=== PATIENT | female | born 1950 | race Caucasian/White ===

== ENCOUNTER 2022-03-29 15:00 | Outpatient (CLI) | payer MEDICARE, SELFPAY ==
--- NOTE | ~2022-03-29 | XR_ITS ---
EXAM: XR abdomen/kub 1V DATE: 03/29/2022 15:29 HISTORY: CALCIUM KIDNEY STONE, FOLLOW UP FOR PRE OP . COMPARISON: CT abdomen pelvis, same date. FINDINGS: Clear lung bases. Cholecystectomy clips. Normal bowel gas pattern. No organomegaly. 4 mm l eft midpole calcification. Pelvic phleboliths Regional bones and soft tissues normal for age. IMPRESSION: Left nephrolithiasis. Reviewed, dictated and finalized at location K. L AIRCREWMAN IMPRESSION: Left nephrolithiasis.
--- NOTE | ~2022-03-29 | CT_ITS ---
EXAMINATION: CT abdomen pelvis wo con DATE: 03/29/2022 15:21 INDICATION: CALCIUM KIDNEY STONE TECHNIQUE: Computed tomography (CT) of the abdomen and pelvis was performed without intravenous contr ast. Automated exposure control and iterative reconstruction technique were employed. The dose-length product was 237.79 mGy-cm. COMPARISON: None. FINDINGS: Lower thorax: Right basilar scar/atelectasis. Liver: Normal. Biliary/Gallbladder: Gallbladder is absent. No bile duct dilation. Pancreas: No mass or duct dilation. Spleen: Normal. Adrenals:No mass. Kidneys: 3 mm left midpole nonobstructing calculus. Bilateral perinephric stranding. 2.5 cm indetermi mateo right upper pole renal mass. Additional bilateral hypodensities that are too small to characteri ze but frequently are attributed to simple cysts GI tract: No small or large bowel dilation. Normal appendix. Scattered diverticuli. Mild wall edema a nd inflammatory change involving a diverticulum in the left anterior and lower pelvis. Mesentery/Peritoneum: No ascites, mass, or free air. Retroperitoneum: No mass. Pelvis: Absent uterus. Soft Tissues: Soft tissues and body wall unremarkable. Bones: No acute osseous finding. IMPRESSION: Possible early/mild mid sigmoid diverticulitis. Indeterminate right renal mass, recommend nonemergent but timely outpatient MRI or CT of the abdomen and pelvis with and without contrast for further eval uation. No CT evidence of obstructive uropathy. Reviewed, dictated and finalized at location K. CH OFFICE MANAGER IMPRESSION: Possible early/mild mid sigmoid diverticulitis. Indeterminate right renal mass, recommend nonemergent but timely outpatient MRI or CT of the abdomen and pelvi s with and without contrast for further evaluation. No CT evidence of obstructi ve uropathy.
== END 2022-03-29 15:01 | disposition home or self-care (01) ==
LOC: ANHIMG 15:02
PROVIDERS: Visit Provider Urology
DX: N20.0 Calculus of kidney (principal)
CPT/HCPCS: 74018; 74176

== ENCOUNTER 2022-12-27 13:09 | Outpatient (CLI) | payer MEDICARE, SELFPAY ==
--- NOTE | ~2022-12-27 | XR_ITS ---
EXAMINATION: XR abdomen/kub 1V DATE: 12/27/2022 13:33 INDICATION: Left kidney stone. TECHNIQUE: A supine view of the abdomen on 2 radiographs was obtained. COMPARISON: CT abdomen and pelvis 03/29/2022, abdomen radiographs 03/30/2022 FINDINGS: There is a 4 mm stone in left kidney. There are phleboliths in the pelvis. There are no dil ated loops of bowel. Surgical clips in the right upper quadrant are likely from cholecystectomy. IMPRESSION: 1. 4 mm left kidney stone. Reviewed, dictated and finalized at location A. IMPRESSION: 1. 4 mm left kidney stone.
== END 2022-12-27 13:10 | disposition home or self-care (01) ==
LOC: ANHIMG 13:19
PROVIDERS: Visit Provider Urology
DX: N20.0 Calculus of kidney (principal)
CPT/HCPCS: 74018

== ENCOUNTER 2023-01-16 13:40 | Outpatient (CLI) | payer MEDICARE, SELFPAY ==
--- NOTE | ~2023-01-16 | CT_ITS ---
CT of the Abdomen and Pelvis: Indication: Right renal cyst Technique: 2.5 mm axial scans were obtained through the abdomen and pelvis prior to and following in travenous administration of 100 cc of Omnipaque 350. Dose reduction technique was used on this scan b y utilizing automated exposure control and iterative reconstruction technique. The dose-length produc t (DLP) was 788.24 mGy-cm. COMPARISON: 03/29/2022 Findings: Scans through the lung bases demonstrate discoid right basilar atelectatic change. The liver, spleen, pancreas, and adrenal glands are within normal limits. Cholecystectomy clips are p resent. Simple right renal cysts are present. 4 mm nonobstructing left renal stone present.. No evide nce of aortic aneurysm. There is a 1.5 x 1.1 cm left periaortic lymph node (series 6 image 93), mildl y increased in size from prior exam.. No bowel obstruction or bowel wall thickening. There is no evidence to suggest acute appendicitis. Images through the pelvis were performed. Urinary bladder unremarkable. No pelvic mass evident. Patie nt is status post hysterectomy. No ascites. Impression: Simple right renal cysts. 4 mm nonobstructing left renal stone. Single mildly enlarged left periaortic lymph node, as detailed above. This is of uncertain clinical s ignificance/etiology. This node is probably minimally increased from prior exam. Consider additional follow-up exam in 6 months. Reviewed, dictated and finalized at [facility]. Impression: Simple right renal cysts. 4 mm nonobstructing left renal stone. Single mildly enlarged left periaortic lymph node, as detailed above. This is o f uncertain clinical significance/etiology. This node is probably minimally inc reased from prior exam. Consider additional follow-up exam in 6 months.
[2023-01-16 15:16] LABS: Estimated Glomerular Filt Rate > 60
== END 2023-01-16 13:41 | disposition home or self-care (01) ==
PROVIDERS: PCP Family Medicine; Visit Provider Urology
DX: N28.1 Cyst of kidney, acquired (principal); N20.0 Calculus of kidney
CPT/HCPCS: 74178; Q9967

== ENCOUNTER 2023-02-23 10:32 | Outpatient (CLI) | payer MEDICARE, SELFPAY ==
--- NOTE | 2023-02-23 10:52 | ECG_ITS ---
Measurements Intervals [place] Rate: 86 P: 37 WV: 173 QRS: -16 QRSD: 84 T: 34 QT: 356 QTc: 426 Interpretive Statements SINUS RHYTHM LOW QRS VOLTAGE IN PRECORDIAL LEADS [QRS DEFLECTION < 1.0 mV IN CHEST LEADS] NO PREVIOUS ECG AVAILABLE FOR COMPARISON Electronically Signed On 02-23-2023 14:30:02 CDT by Luis Preston M.D.
[2023-02-23 11:51] LABS: Prothrombin Time 13.2 Seconds (11.1-14.7)
[2023-02-23 11:52] LABS: Partial Thromboplastin Time 32.4 SECONDS (22.3-36.8)
== END 2023-02-23 10:33 | disposition home or self-care (01) ==
LOC: ANHSURGERY 10:35
PROVIDERS: PCP Family Medicine; Visit Provider Urology
DX: Z01.812 Encounter for preprocedural laboratory examination (principal); Z01.810 Encounter for preprocedural cardiovascular examination; N20.0 Calculus of kidney; I10 Essential (primary) hypertension
CPT/HCPCS: 36415; 85610; 85730; 87086; 93005

== ENCOUNTER 2023-03-02 02:50 | Day surgery (SDC) | payer MEDICARE, SELFPAY ==
[2023-02-20 17:59] VITALS: BMI 26.4
--- NOTE | 2023-02-20 18:01 | PC.NURSE ---
Report to the Outpatient Waiting Room, entrance under the green pavilion located off [facility], at time _0600_ on date _[id number]_. Planned Procedure Time: _0730_. Time changes happen often and if your time is changed the preop area will call you the afternoon before. - You and your visitor will be asked to self-screen and do not enter if you have any COVID symptoms. - A mask is optional within the hospital at this time. Patients may have clear liquids (water, carbonated beverages, clear teas, apple juice) until 3 hours prior to surgery with a maximum of 20 ounces. - No food from midnight until time of surgery Take the following medications with a SIP of water the morning of surgery: __Levothyroxine DO NOT STOP ANY OF YOUR OTHER PRESCRIPTION MEDICATIONS PRIOR TO SURGERY ?EXCEPT THE FOLLOWING Medications to discontinue per physician Vitamin D3 and Probiotic Date to take last senb___[id number] Please no make-up, nail azerbaijani, hairspray, perfume, deodorant, or body powder the day of surgery. No jewelry (including any body piercings) or valuables the day of surgery, leave them at home. Please take a shower or bath the night before, or the morning of, surgery with an antibacterial soap. Wear comfortable, loose fitting clothing. - Jewelry must be removed prior to entering the operating room. Rings and piercings that are not removed may be cut off. - The hospital will not accept responsibility for valuables. - Please leave all valuables, including medications, at home the day of surgery. If you are going home after surgery, a licensed team cdl driver must drive you home. - NO public transportation without another adult if you receive anesthesia. - We recommend that an adult stay with you for 24 hours following discharge. - We also recommend that you do not drive, make important decision, drink alcoholic beverages, or take any drugs that were not prescribed by your health care provider for at least 24 hours after your discharge time. Follow any additional instructions given to you from your surgeon. If you or anyone in your household have experienced Covid symptoms in the past week, please notify your surgeon or the nurse liaison at the phone number below for possible testing. Telephone instructions given to _Patient___and asked if any additional questions and then verbalized understanding. Patient advised to call surgeon office or pre surgery nurse liaison [phone] if any additional questions.
--- NOTE | 2023-02-23 07:27 | P.HP_ITS ---
History of Present Illness History of Present Illness Consent: Risks, benefits, and alternatives have been discussed and questions answered. Patient agrees to proceed with procedure. Chief complaint: left renal stone Narrative: Lesli Su is a 72 year old female under have urolithiasis in the past had a recent renal ultrasound suggested a 9 mm left midpole calculus. That was confirmed by CT scan. Additionally she had an indeterminate mass in her left k idney which, by ultrasound, as suggestive of a benign cyst. After discussion of options she has elected for left ESWL. She is aware of the risk including, but not limited to, need for additional procedures, hematuria and perinephric hematoma Review of Systems Review of Systems: All systems reviewed & are unremarkable except as noted in HPI and below PMFSH Social History Social History Smoking status: Never smoker Alcohol intake: current Living arrangements: with family Spiritual care concerns: No Meds Home Medications and Allergies Home Medications Medication Instructions Recorded Confirmed Type Lactobacillus 40-Bifidobact 1 cap PO DAILY 02/20/23 02/20/23 History 3-S.thermophilus 100 billion cell capsule (Probiotic) amitriptyline 50 mg tablet 50 mg PO HS 02/20/23 02/20/23 History cholecalciferol (vitamin D3) 125 125 mcg PO DAILY 02/20/23 02/20/23 History mcg (5,000 unit) tablet (Vitamin D3) letrozole 2.5 mg tablet 2.5 mg PO HS 02/20/23 02/20/23 History levothyroxine 75 mcg tablet 75 mcg PO DAILY 02/20/23 02/20/23 History lovastatin 20 mg tablet 20 mg PO HS 02/20/23 02/20/23 History metoprolol succinate 25 mg 25 mg PO HS 02/20/23 02/20/23 History tablet,extended release 24 hr Allergies Allergy/AdvReac Type Severity Reaction Status Date / Time hydrocodone Allergy Severe Hives Verified 02/20/23 17:49 Exam Const: General: no acute distress Resp: Effort & Inspection: normal respiratory effort GI: Inspection: non-distended GI Palp: No abdominal tenderness and No Guarding due to palpation present (GI) Auscultation: normal bowel sounds Assessment and Plan Assessment and plan (1) Left renal stone: Code(s): N20.0 - Calculus of kidney Status: Acute Assessment and Plan: * Left ESWL
[2023-03-02] VITALS (8 sets, daily range): BP systolic 124–134; BP diastolic 63–77; PULSE 72–88; RESP 12–18; TEMP 36.3–36.4; O2SAT 98–100; BMI 27.1
--- NOTE | ~2023-03-02 | XR_ITS ---
Supine and upright views of the abdomen Clinical history: Lithotripsy COMPARISON: 12/27/2022 Findings: Bowel gas pattern is nonspecific. No evidence for obstruction or free air. Stable 4 mm left renal stone noted. Osseous structures are intact. Impression: Stable 4 mm left renal stone. Reviewed, dictated and finalized at [facility]. Impression: Stable 4 mm left renal stone.
--- NOTE | 2023-03-02 06:33 | WPDANESEPPF ---
Anes - Initial Pre Proc Eval Procedure: Operation Date: 03/02/23 07:30 Proposed Procedures p Left Renal Extracorporeal Shock Wave Lithotripsy - Rick Randle MD Date/Time: 03/02/23 06:33 Surgeon: Rick Randle MD Pre Op Diagnosis: left renal stone Patient Data Age: 72 Gender: F Height: 1.55 m Weight: 63.6 kg Allergies Allergy/AdvReac Type Severity Reaction Status Date / Time hydrocodone Allergy Severe Hives Verified 02/20/23 17:49 Home Medications Medication Instructions Recorded Confirmed Type Lactobacillus 40-Bifidobact 1 cap PO DAILY 02/20/23 02/20/23 History 3-S.thermophilus 100 billion cell capsule (Probiotic) amitriptyline 50 mg tablet 50 mg PO HS 02/20/23 02/20/23 History cholecalciferol (vitamin D3) 125 125 mcg PO DAILY 02/20/23 02/20/23 History mcg (5,000 unit) tablet (Vitamin D3) letrozole 2.5 mg tablet 2.5 mg PO HS 02/20/23 02/20/23 History levothyroxine 75 mcg tablet 75 mcg PO DAILY 02/20/23 02/20/23 History lovastatin 20 mg tablet 20 mg PO HS 02/20/23 02/20/23 History metoprolol succinate 25 mg 25 mg PO HS 02/20/23 02/20/23 History tablet,extended release 24 hr Patient hx anesthesia problems: none Family hx anesthesia problems: none Results Review: All pre-operative results and documents have been reviewed as part of the pre-operative evaluation. [facility] Past Medical History Medical History (Updated 03/02/23 @ 06:34 by Erik Blanco MD) Breast cancer HTN (hypertension) Hyperlipidemia Hypothyroidism Surgical History Surgical History (Updated 03/02/23 @ 06:34 by Erik Blanco MD) H/O: hysterectomy History of cholecystectomy Hx of tonsillectomy Social History Social History Smoking status: Never smoker Alcohol intake: current Living arrangements: with family Spiritual care concerns: No Anes - Eval Final PreProcedure Day of Procedure 03/02/23 06:33 Patient weight: overweight Heart: regular rate and rhythm Lungs: clear to auscultation Airway: Mallampati scale class II Neurological: alert and oriented Last oral intake: >/= 8 hours ASA classification: III Emergent: no Anesthetic plan: proceed Anesthesia type and monitoring: general LMA and standard monitoring Results Review: All pre-operative results and documents have been reviewed as part of the pre-operative evaluation. Informed Consent: The patient's anesthetic plan and its attendant risks and benefits were discussed with the patient/family/POA. Questions were solicited and answers provided to the satisfaction of the patient/family/POA.
--- NOTE | 2023-03-02 06:56 | WPDHPUPDATE1 ---
History and Physical Update Update Date/Time: 03/02/23 06:56 History and Physical has been reviewed, including an updated exam of the patient. There are NO changes in the patient's condition. Risks, benefits, and alternatives have been discussed and questions answered. Patient agrees to proceed with procedure.
[2023-03-02] MEDS: LACTATED RINGERS 1,000 ML 30 ML IV CONT (07:00)
[2023-03-02] MEDS: ceFAZolin 2 GM/D5W 50 ML 2 GM/50 ML BAG IVPB (07:22)
--- NOTE | 2023-03-02 07:51 | W.PM.PROC2 ---
Procedure Note - Detailed Date of Procedure 03/02/23 Pre-op Diagnosis Left renal stone Post-op Diagnosis Same Procedure Performed Left ESWL Surgeon Rick Randle MD Anesthesia General Findings 4mm calcified left renal stone Description of Procedure The patient was brought to the operative suite where she was placed in the supine position on the Dornier lithotripsy table. The focal point of the lithotripter was placed at a 4mm left renal calculus. A total of 2500 shocks were delivered at a power setting of 4. There appeared to be good fragmentation of the stone. The patient tolerated the procedure well and was taken to the recovery room in good condition. Drains No Packing No Pathology None sent Complications No immediate complications Condition Stable Disposition PACU
[2023-03-02] MEDS: KETOROLAC 15 MG/ML VIAL (*BKC) IV PUSH (09:20)
== END 2023-03-02 09:48 | disposition home or self-care (01) ==
PROVIDERS: PCP Family Medicine; Visit Provider Urology
PROC: (CPT 50590; principal; 2023-03-02 07:30)
DX: N20.0 Calculus of kidney (principal); I10 Essential (primary) hypertension; E78.5 Hyperlipidemia, unspecified; E03.9 Hypothyroidism, unspecified; Z85.3 Personal history of malignant neoplasm of breast
CPT/HCPCS: 50590; 74018; J0690; J1100; J1885; J2405; J2704; J7120

== ENCOUNTER 2023-03-09 15:40 | Outpatient (CLI) | payer MEDICARE, SELFPAY ==
--- NOTE | ~2023-03-09 | XR_ITS ---
EXAMINATION: XR abdomen/kub 1V INDICATION: Calculus of the kidney TECHNIQUE: Supine views of the abdomen were obtained on 2 radiographs. COMPARISON: 03/02/2023 FINDINGS: There is a 4 mm stone of the left kidney. No additional urolithiasis is identified. Phlebol iths are noted in the pelvis. The bowel gas pattern is normal. IMPRESSION: 1. Stable left nephrolithiasis. Reviewed, dictated and finalized at location F.
== END 2023-03-09 15:41 | disposition home or self-care (01) ==
PROVIDERS: PCP Family Medicine; Visit Provider Urology
DX: N20.0 Calculus of kidney (principal)
CPT/HCPCS: 74018

== ENCOUNTER 2023-12-25 09:42 | Outpatient (CLI) | payer MEDICARE, SELFPAY ==
--- NOTE | ~2023-12-25 | XR_ITS ---
XR abdomen/kub 1V Ordering provider: Rick Randle MD History: . CALCIUM KIDNEY STONES . Comparison: March 09, 2023 FINDINGS: BOWEL: Nonobstructive bowel gas pattern. ORGANOMEGALY: None. SIGNIFICANT PATHOLOGIC CALCIFICATIONS: Tiny stone in the left kidney area. OTHER: No free air is seen under the diaphragm. IMPRESSION: NO ACUTE ABDOMINAL FINDINGS. Stone in the left kidney unchanged from previous examination Reviewed, dictated and finalized at location A.
== END 2023-12-25 09:43 | disposition home or self-care (01) ==
LOC: ANHIMG 09:43
PROVIDERS: PCP Family Medicine; Visit Provider Urology
DX: N20.0 Calculus of kidney (principal)
CPT/HCPCS: 74018

== ENCOUNTER 2025-01-02 09:44 | Outpatient (CLI) | payer MEDICARE, SELFPAY ==
--- OUTSIDE RECORDS SUMMARY | 2025-01-02 09:49 | XMS_ITS | Encounter Summary ---
Author Organization [facility] Address [address] [place] [address] Phone Care Team Providers Care Superintendent Name Role Phone Dami Santamaria MD Unavailable [phone] Erik Pathak MD Unavailable [phone] Christiano Gregory MD Unavailable Ana Theodore MD Primary Care Provider Kay Cabrales Primary Care Provider + Eyad Regalado MD Unavailable Reason for Visit * Reason Comments Medication Refill Encounter Details Date Type Department Care Team (Late st Contact Info) Description 10/04/2022 Refill [facility] Medical Oncology [address] [place] [address] Dami Santamaria MD [address] [place], [place] [id number] Medication Refill Social History Tobacco Use Types Packs/Day Years Used Date Smoking Tobacco: Never Smokeless Tobacco: Never Alcohol Use Standard Drinks/Week Comments Yes 0 (1 standard drink = 0.6 oz pur e alcohol) Occasionally. PHQ-2 Answer Date Recorded Total Score - Questions 1-9 0 04/21 Education Answer Date Recorded What is the highest level of school you have completed or the highest degree you have received? 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 No / Unsure 09/28/2022 2:16 PM CDT documented as of this encounter Miscellaneous Notes * Telephone Encounter - Alejandrina Carlisle RN - 10/04/2022 9:19 AM CDT Refilled Letrozole per MD f/u note. Next f/u in 4 months documented in this encounter Plan of Treatment Upcoming Encounters Date Type Department Care Team (Late st Contact Info) Description 02/19/2025 9:20 AM CDT [facility] [address] [place] [phone] Dami Santamaria MD [address] [place] [address] Discharge Disposition: Discharged to home or Selfcare 02/19/2025 9:30 AM CDT Clinical Support [facility] [address] [place] [address] Dami Santamaria MD [address] [place] [address] Discharge Disposition: Discharged to home or Selfcare 07/02/2025 2:30 PM TEXTILE COLORIST DYER Office Visit [facility] [address] [place] [address] Kay Cabrales, PAC [address] [place] [address] documented as of this encounter Visit Diagnoses Diagnosis Malignant neoplasm of lower-outer quadrant of right female breast (HCC) Malignant neoplasm of lower-outer quadrant of female breast documented in this encounter Additional Health Concerns Assessment Noted Time PHQ-9 Depression Total Score: 0 05/10/20 1:00 PM TEXTILE COLORIST DYER documented as of this encounter Care Teams Superintendent Relationship Specialty Start Date End Date Ana Theodore MD [address] [phone] PCP - General Family Medicine 05/10/22 08/05/23 Kay Cabrales, VALENTIN [address] [place] [address] PCP - General Physician Flux Plant Operator 08/06/23 Dami Santamaria MD Consulting Physician Hematology 08/21/16 Erik Pathak MD Consulting Physician Radiation Oncology 09/22/16 Christiano Gregory MD [address] [phone] Consulting Physician Endocrinology 01/10/22 Eyad Regalado MD [address] [address] Consulting Physician Colon and Rectal Surgery 04/02/24 documented as of this encounter
--- OUTSIDE RECORDS SUMMARY | 2025-01-02 09:49 | XMS_ITS | Encounter Summary ---
Author Organization [facility] Address [address] [place] [address] Phone Care Team Providers Care Order Dispatcher Name Role Phone Kaitlynn Christianson MD Primary Care Provider [phone] Dami Santamaria MD Unavailable [phone] Erik Pathak MD Unavailable [phone] Christiano Gregory MD Unavailable Ana Theodore MD Primary Care Provider Kay Cabrales Primary Care Provider + Eyad Regalado MD Unavailable Reason for Visit * Reason Comments Medication Refill Encounter Details Date Type Department Care Team (Late st Contact Info) Description 01/26/2021 Refill [facility] [address] [place] [address] Kaitlynn Christianson MD [address] [place] [address] Medication Refill Social History Tobacco Use Types Packs/Day Years Used Date Smoking Tobacco: Never Smokeless Tobacco: Never Alcohol Use Standard Drinks/Week Comments Yes 0 (1 standard drink = 0.6 oz pur e alcohol) Occasionally. 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 Requested Prescriptions Pending Prescriptions Disp Refills Euthyrox 75 MCG Tablet [Pharmacy Med Name: Euthyrox 75 MCG Oral Tablet] 90 Tablet 0 Sig: Take 1 tablet by mouth once daily Thyroid Hormones Protocol Passed - 01/27/2021 9:02 AM Passed - Visit with relevant provider in past 12 months or upcoming 90 days Recent Visits Date Type Provider Dept 12/17/20 Office Visit Kaitlynn Christianson MD [facility] 06/17/20 Telemedicine Kaitlynn Christianson MD [facility] Showing recent visits within past 365 days and meeting all other requirements Future Appointments No visits were found meeting these conditions. Showing future appointments within next 90 days and meeting all other requirements Passed - Normal TSH in past 12 months TSH Date Value Ref Range Status 12/10/2020 1.520 0.270 - 4.200 mIU/L Final metoprolol Succinate (TOPROL-XL) 25 MG TABLET SR 24 HR [Pharmacy Med Name: Metoprolol Succinate ER 25 MG Oral Tablet Extended Release 24 Hour] 90 Tablet 0 Sig: Take 1 tablet by mouth once daily Beta-Blockers Protocol Passed - 01/27/2021 9:02 AM Passed - BP on record in the past year Clinician-entered: BP Readings from Last 3 Encounters: 12/17/20 128/80 12/16/20 139/69 12/16/20 139/69 Patient-entered: No data recorded Passed - Visit with relevant provider in past 12 months or upcoming 90 days Recent Visits Date Type Provider Dept 12/17/20 Office Visit Kaitlynn Christianson MD [facility] 06/17/20 Telemedicine Kaitlynn Christianson MD [facility] Showing recent visits within past 365 days and meeting all other requirements Future Appointments No visits were found meeting these conditions. Showing future appointments within next 90 days and meeting all other requirements lovastatin (MEVACOR) 20 MG Tablet [Pharmacy Med Name: Lovastatin 20 MG Oral Tablet] 90 Tablet 0 Sig: TAKE 1 TABLET BY MOUTH ONCE DAILY IN THE EVENING Hmg CoA Reductase Inhibitors Protocol Passed - 01/27/2021 9:02 AM Passed - Visit with relevant provider in past 12 months or upcoming 90 days Recent Visits Date Type Provider Dept 12/17/20 Office Visit Kaitlynn Christianson MD [facility] 06/17/20 Telemedicine Kaitlynn Christianson MD [facility] Showing recent visits within past 365 days and meeting all other requirements Future Appointments No visits were found meeting these conditions. Showing future appointments within next 90 days and meeting all other requirements Passed - Lipid panel in past 12 months LDL Date Value Ref Range Status 12/10/2020 85 5 - 130 mg/dL Final HDL CHOLESTEROL Date Value Ref Range Status 12/10/2020 38.6 (L) >40 mg/dL Final CHOLESTEROL Date Value Ref Range Status 12/10/2020 157 <=200 mg/dL Final TRIGLYCERIDES Date Value Ref Range Status 12/10/2020 167 (H) <150 mg/dL Final VLDL Date Value Ref Range Status 12/10/2020 33 5 - 55 mg/dL Final CHOL/HDL RATIO Date Value Ref Range Status 12/10/2020 4.1 0.0 - 4.4 Final NON-HDL CHOLESTEROL Date Value Ref Range Status 12/10/2020 118.4 <130 mg/dL Final amitriptyline (ELAVIL) 50 MG Tablet [Pharmacy Med Name: Amitriptyline HCl 50 MG Oral Tablet] 90 Tablet 0 Sig: TAKE 1 TABLET BY MOUTH ONCE DAILY AT NIGHT [facility] Not Delegated - Psychiatry: Antidepressants - Heterocyclics (TCAs) Failed - 01/27/2021 9:02 AM Failed - This refill cannot be delegated Passed - Valid encounter within last 12 months Past Office Visits Recent Outpatient Visits 1 month ago Essential hypertension [facility] Kaitlynn Christianson MD 7 months ago Essential hypertension [facility] Kaitlynn Christianson MD 1 year ago Essential [facility] Kaitlynn Everett MD 1 year ago Essential hypertension [facility] - Kaitlynn Everett MD 2 years ago Essential hypertension [facility] [place] Kaitlynn Christianson MD Upcoming Appointments Future Appointments In 4 months [facility] In 4 months Dami Santamaria MD [facility], [facility] In 4 months [facility] CC INFUSION CHR1 [facility], [facility] In 4 months Kaitlynn Christianson MD [facility] In 10 months Erik Pathak MD [facility], [facility] TOBACCO PACKER - Recent and Past Visits Recent Visits Date Type Provider Dept 12/17/20 Office Visit Kaitlynn Christianson MD [facility] 06/17/20 Telemedicine Kaitlynn Christianson MD [facility] 11/14/19 Telemedicine Kaitlynn Christianson MD [facility] Showing recent visits within past 460 days with a meds authorizing provider and meeting all other requirements Future Appointments No visits were found meeting these conditions. Showing future appointments within next 90 days with a meds authorizing provider and meeting all other requirements Passed - Last BP in normal range BP Readings from Last 1 Encounters: 12/17/20 128/80 documented in this encounter Plan of Treatment Upcoming Encounters Date Type Department Care Team (Late st Contact Info) Description 02/19/2025 9:20 AM CDT Office Visit [facility] [address] [place] [address] Dami Santamaria MD [address] [place] [address] Discharge Disposition: Discharged to home or Selfcare 02/19/2025 9:30 AM CDT Clinical Support [facility] [address] [place] [address] Dami Santamaria MD [address] [place] [address] Discharge Disposition: Discharged to home or Selfcare 07/02/2025 2:30 PM CHANGE OVER Office Visit [facility] Medical Group - Family [facility] [address] [place] [address] Kay Cabrales, PAC [address] [place] [address] documented as of this encounter Visit Diagnoses Diagnosis Acquired hypothyroidism Unspecified hypothyroidism Essential hypertension Unspecified essential hypertension Fibromyalgia Mylagia and myositis, unspecified documented in this encounter Additional Health Concerns Assessment Noted Time PHQ-9 Depression Total Score: 0 04/03/20 19 10:00 AM CHANGE OVER documented as of this encounter Care Teams Order Dispatcher Relationship Specialty Start Date End Date Kaitlynn Christianson MD PCP - General Family Medicine 03/07/15 05/09/22 Ana Theodore MD [address] [address] PCP - General Family Medicine 05/10/22 08/05/23 Kay Cabrales, PAC [address] [place] [address] PCP - General Physician Clerical Aide 08/06/23 Dami Santamaria MD Consulting Physician Hematology 08/21/16 Erik Pathak MD Consulting Physician Radiation Oncology 09/22/16 Christiano Gregory MD [address] [address] Consulting Physician Endocrinology 01/10/22 Eyad Regalado MD [address] [address] Consulting Physician Colon and Rectal Surgery 04/02/24 documented as of this encounter
--- OUTSIDE RECORDS SUMMARY | 2025-01-02 09:49 | XMS_ITS | Encounter Summary ---
Author Organization [facility] Address [address] [place] [address] Phone Care Team Providers Care Livestock Nutritionist Name Role Phone Kaitlynn Christianson MD Primary Care Provider [phone] Dami Santamaria MD Unavailable [phone] Erik Pathak MD Unavailable [phone] Christiano Gregory MD Unavailable Ana Theodore MD Primary Care Provider [phone] Kay Cabrales Primary Care Provider + Eyad Regalado MD Unavailable Reason for Visit * Reason Comments Medication Refill Encounter Details Date Type Department Care Team (Late st Contact Info) Description 04/11/2022 Refill [facility] - [facility] - [place] [address] [place] [address] Kaitlynn Christianson MD [address] [place] [address] Medication Refill Social History Tobacco [...] 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 Requested Prescriptions Pending Prescriptions Disp Refills levothyroxine (SYNTHROID) 75 MCG Tablet [Pharmacy Med Name: Levothyroxine Sodium 75 MCG Oral Tablet] 90 Tablet 0 Sig: Take 1 Tablet by mouth daily. Thyroid Hormones Protocol Passed - 04/11/2022 3:08 AM Passed - Visit with relevant provider in past 12 months or upcoming 90 days Recent Visits Date Type Provider Dept 12/26/21 Office Visit Kaitlynn Christianson MD [facility] 06/28/21 Office Visit Kaitlynn Christianson MD [facility] Showing recent visits within past 365 days and meeting all other requirements Future Appointments Date Type Provider Dept 05/10/22 Appointment Ana Theodore MD [facility] 06/21/22 Appointment Lab, [facility] 06/29/22 Appointment Kaitlynn Christianson MD [facility] Showing future appointments within next 90 days and meeting all other requirements Passed - Normal TSH in past 12 months TSH Date Value Ref Range Status 12/16/2021 2.400 0.270 - 4.200 mIU/L Final metoprolol Succinate (TOPROL-XL) 25 MG TABLET SR 24 HR [Pharmacy Med Name: Metoprolol Succinate ER 25 MG Oral Tablet Extended Release 24 Hour] 90 Tablet 0 Sig: Take 1 Tablet by mouth daily. Beta-Blockers Protocol Passed - 04/11/2022 3:08 AM Passed - BP on record in the past year Clinician-entered: BP Readings from Last 3 Encounters: 03/09/22 102/64 01/18/22 120/78 01/03/22 142/83 Patient-entered: No data recorded Passed - Visit with relevant provider in past 12 months or upcoming 90 days Recent Visits Date Type Provider Dept 12/26/21 Office Visit Kaitlynn Christianson MD [facility] [employer] [facility] 06/28/21 Office Visit Kaitlynn Christianson MD [facility] [employer] [facility] Showing recent visits within past 365 days and meeting all other requirements Future Appointments Date Type Provider Dept 05/10/22 Appointment Ana Theodore MD [facility] 06/21/22 [facility]oint[facility] [employer] [facility] 06/29/22 Appointment Kaitlynn Christianson MD [facility] [employer] [facility] Showing future appointments within next 90 days and meeting all other requirements amitriptyline (ELAVIL) 50 MG Tablet [Pharmacy Med Name: Amitriptyline HCl 50 MG Oral Tablet] 90 Tablet 0 Sig: Take 1 Tablet by mouth nightly. Not Delegated - Tricyclic Agents Protocol Failed - 04/11/2022 3:08 AM Failed - This refill cannot be delegated Passed - Visit with relevant provider in past 12 months or upcoming 90 days Recent Visits Date Type Provider Dept 12/26/21 Office Visit Kaitlynn Christianson MD [facility] [employer] [facility] 06/28/21 Office Visit Kaitlynn Christianson MD [facility] [employer] [facility] Showing recent visits within past 365 days and meeting all other requirements Future Appointments Date Type Provider Dept 05/10/22 Appointment Ana Theodore MD [facility] 06/21/22 Appointment Lab, [facility] [employer] 06/29/22 Appointment Kaitlynn Christianson MD [facility] [employer] [facility] Showing future appointments within next 90 days and meeting all other requirements lovastatin (MEVACOR) 20 MG Tablet [Pharmacy Med Name: Lovastatin 20 MG Oral Tablet] 90 Tablet 0 Sig: Take 1 Tablet by mouth every evening. Hmg CoA Reductase Inhibitors Protocol Passed - 04/11/2022 3:08 AM Passed - Visit with relevant provider in past 12 months or upcoming 90 days Recent Visits Date Type Provider Dept 12/26/21 Office Visit Kaitlynn Christianson MD [facility] 06/28/21 Office Visit Kaitlynn Christianson MD [facility] Showing recent visits within past 365 days and meeting all other requirements Future Appointments Date Type Provider Dept 05/10/22 Appointment Ana Theodore MD [facility] 06/21/22 Appointment Andi Radha [facility] [address] 06/29/22 Appointment Kaitlynn Christianson MD [facility] Showing future appointments within next 90 days and meeting all other requirements Passed - Lipid panel in past 12 months LDL Date Value Ref Range Status 12/16/2021 90 5 - 130 mg/dL Final HDL CHOLESTEROL Date Value Ref Range Status 12/16/2021 37.3 (L) >40 mg/dL Final CHOLESTEROL Date Value Ref Range Status 12/16/2021 159 <=200 mg/dL Final TRIGLYCERIDES Date Value Ref Range Status 12/16/2021 157 (H) <150 mg/dL Final VLDL Date Value Ref Range Status 12/16/2021 31 5 - 55 mg/dL Final CHOL/HDL RATIO Date Value Ref Range Status 12/16/2021 4.3 0.0 - 4.4 Final NON-HDL CHOLESTEROL Date Value Ref Range Status 12/16/2021 121.7 <130 mg/dL Final ULA CHECKER documented in this encounter Plan of Treatment Upcoming Encounters Date Type Department Care Team (Late st Contact Info) Description 02/19/2025 9:20 AM CDT Office Visit [facility] [address] [place] [address] Dami Santamaria MD [address] [place] [address] Discharge Disposition: Discharged to home or Selfcare 02/19/2025 9:30 AM CDT Clinical Support [facility] [address] [place] [address] Dami Santamaria MD [address] [place] [address] Discharge Disposition: Discharged to home or Selfcare 07/02/2025 2:30 PM FORMULA CHECKER Office Visit [facility] [place] [place] [address] [place] [address] Kay Cabrales, PAC [address] [place] [address] documented as of this encounter Visit Diagnoses Diagnosis Acquired hypothyroidism Unspecified hypothyroidism Essential hypertension Unspecified essential hypertension Fibromyalgia Mylagia and myositis, unspecified documented in this encounter Additional Health Concerns Assessment Noted Time PHQ-9 Depression Total Score: 0 04/03/20 19 10:00 AM FORMULA CHECKER documented as of this encounter Care Teams Livestock Nutritionist Relationship Specialty Start Date End Date Kaitlynn Christianson MD PCP - General Family Medicine 03/07/15 05/09/22 Ana Theodore MD [address] [address] PCP - General Family Medicine 05/10/22 08/05/23 Kay Cabrales, [place]ENT[place] [address] [place] [address] PCP - General Physician Dietitian Teaching 08/06/23 Dami Santamaria MD Consulting Physician Hematology 08/21/16 Erik Pathak MD Consulting Physician Radiation Oncology 09/22/16 Christiano Gregory MD [address] [address] Consulting Physician Endocrinology 01/10/22 Eyad Regalado MD [address] [address] Consulting Physician Colon and Rectal Surgery 04/02/24 documented as of this encounter
--- OUTSIDE RECORDS SUMMARY | 2025-01-02 09:49 | XMS_ITS | Clinical Summary ---
Author Organization [facility] Address [address], [facility] [address] [place] [address] Phone Care Team Providers Care Secretarial Stenographer Name Role Phone Dami Santamaria MD Unavailable Erik Pathak MD Unavailable [phone] Christiano Gregory MD Unavailable Kay Cabrales Primary Care Provider + Eyad Regalado MD Unavailable Allergies Active Allergy Reactions Criticality Noted Date Comments Atorvastatin Other (see Comments),Rash Medium Leg pains Hydrocodone Hives,Rash Medium 03/15/2016 Medications Denosumab (PROLIA SC) by Subcutaneous route. Takes every 6 months. Active Vitamin D3 (CHOLECALCIFEROL) 5000 units TabletIndications :Vitamin D deficiency Take 1 Tab by mouth daily. 30 Tab 5 018 Active Probiotic Product (PROBIOTIC GUMMIES PO) Take by mouth. Act katya Multiple Vitamin (MULTI-VITAMIN PO) Take by mouth. Activ e letrozole (FEMARA) 2.5 MG TabletIndications :Malignant neoplasm of lower-outer quadrant of right female breast (HCC) Take 1 tablet by mouth once daily 90 Tablet 3 024 Active levothyroxine (SYNTHROID) 75 MCG TabletIndications :Acquired hypothyroidism Take 1 tablet by mouth once daily 90 Tablet 3 024 Active lovastatin (MEVACOR) 20 MG Tablet TAKE 1 TABLET BY MOUTH ONCE DAILY IN THE EVENING 90 Tablet 3 025 Active metoprolol Succinate (TOPROL-XL) 50 MG TABLET SR 24 HRIndications:Ess ential hypertension Take 1 Tablet by mouth daily. 90 Tablet 3 025 Active amitriptyline (ELAVIL) 50 MG TabletIndications :Fibromyalgia Take 1 tablet by mouth nightly 90 Tablet 1 025 Active amitriptyline (ELAVIL) 50 MG TabletIndications :Fibromyalgia Take 1 tablet by mouth nightly 90 Tablet 025 2024 Discontinued Active Problems Problem Noted Date Diagnosed Date Abnormal findings on diagnos tic imaging of other abdominal regions, including retroperitoneum 08/16/2023 Left renal stone 02/15/2023 Lymphadenopathy 02/15/2023 Palpitations 01/03/2022 Benign paroxysmal positional vertigo 12/16/2020 Hyperosmia 12/14/2019 History of therapeutic radiation 11/29/2016 Overview (2021): Right breast radiotherapy 10/04/2016 thru 11/02/2016 with 42.56 Gy in 16 fractions to her right whole breast followed by a 10 Gy in 5 fraction boost for a total dose of 52.56 Gy in 21 fractions. Prophylactic use of letrozole 11/29/2016 Overview (11/29/2016): Started 09/27/2016. Other specified disorders of bone density and structure, multiple sites 10/19/2016 Screen for colon cancer 10/17/2016 Malignant neoplasm of lower- outer quadrant of right breast of female, estrogen receptor positive 03/14/2016 Overview (12/11/2018): Clinical stage IIA (T2N0M0) ER/HER2 positive and AK negative Carroll grade 3 invasive ductal carcinoma of her right breast that received neoadjuvant dose dense AC x 4 followed by weekly paclitaxel plus Herceptin for 10 weeks with a complete response on both physical exam and radiographically that underwent breast conserving surgery including a 2nd procedure to re-excise the primary tumor bed with [id number] disease. In the partial mastectomy specimen there was no measurable invasive disease, just adenocarcinoma in lymph-vascular channels with the adenocarcinoma extending to the inked surgical margins. In the reexcision specimen there was no additional adenocarcinoma, just residual multifocal DCIS with uninvolved margins. She was placed on Femara 09/27/2016. She then presented for radiotherapy and completed hypo fractionated right breast radiotherapy 11/02/2016. She continued to receive Herceptin every 3 weeks for a total duration of 1 year and completed 07/10/2017. Hypothyroidism HTN (hypertension) HLD (hyperlipidemia) Fibromyalgia Vitamin D deficiency Prediabetes Resolved Problems Problem Noted Date Diagnosed Date Resolved Date Hypercalcemia 06/28/2021 08/16/2023 Chest wall pain 07/25/2020 08/16/2023 Seasonal allergies 06/17/2020 Right axillary swelling 12/10/2019 03/0 11/2020 Lymphocytosis 12/10/2019 06/17/2020 [facility] (current) use of a romatase inhibitors 09/28/2018 12/11/2018 History of cancer chemotherapy 11/28/2017 12/11/2018 Overview (11/28/2017): Neoadjuvant dose dense AC x 4 followed by weekly paclitaxel plus Herceptin for 10 weeks completed July 2016. History of immunotherapy 11/28/2017 Overview (11/28/2017): Herceptin every 3 weeks to complete a total of 1 year completed 07/10/2017. History of therapeutic radiation 11/28/2017 12/11/2018 Overview (11/28/2017): Completed hypo fractionated right breast radiotherapy 11/02/2016. S/P lumpectomy, right breast 11/28/2017 12/11/2018 Overview (11/28/2017): 09/04/2016, re-excision of right breast partial mastectomy tumor bed. History of right breast cancer 11/28/2017 12/11/2018 Tongue lesion 11/28/2017 01/19/2018 Overview (11/28/2017): Dorsal surface of oral tongue on right side about 2 cm from the tip 1st noticed around November 18, 2017. History of cancer chemotherapy 06/06/2017 04/03/2019 Overview (06/06/2017): Neoadjuvant dose dense AC x 4 followed by weekly paclitaxel plus Herceptin for 10 weeks completed July 2016. History of partial mastectomy of right breast 06/06/19 18 2021 Overview (06/06/2017): 08/17/2016 in conjunction with right axillary sentinel lymph node biopsy. Status post lymph node biopsy 06/06/2017 12/11/2018 Overview (06/06/2017): Right axillary sentinel lymph node biopsy 08/17/2016 in conjunction with right partial mastectomy. S/P lumpectomy, right breast 06/06/2017 12/11/2018 Overview (06/06/2017): 09/04/2016, re-excision of right breast partial mastectomy tumor bed. Prophylactic immunotherapy 06/06/2017 1 06/03/2018 Overview (06/06/2017): Herceptin every 3 weeks to complete a total of 1 year, scheduled to complete June 2017. 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/04/2017 01/19/2018 Acute radiation dermatitis 10/30/2016 0 11/29/2016 Adverse effect of radiation 10/30/2016 11/29/2016 Peripheral neuropathy due to chemotherapy 10/09/2016 03/18/2017 Herpes zoster 08/23/2016 09/27/2016 Paresthesia of both hands 07/26/2016 Conjunctivitis of both eyes 06/14/2016 06/28/2016 Myalgia 06/14/2016 06/28/2016 URTI (acute upper respiratory infection) 06/14/2016 06/28/2016 Dermatitis 05/18/2016 06/14/2016 Drug-induced constipation 04/18/2016 Heartburn 04/18/2016 05/02/2016 Muscle cramps 04/04/2016 10/19/2016 Constipation 03/10/2016 06/28/2016 Obesity 12/11/2018 Overview (04/06/2015): BMI 38 Anxiety 04/05/2018 Maintenance chemotherapy Encounters Date Type Department Care Team Description 12/22/2024 2:15 PM CDT Office Visit [facility] [address] [place] [address] Kay Cabrales, VALENTIN Essential hypertension (Primary Dx); Tachycardia; Prediabetes Discharge Disposition: Discharged to home or Selfcare 12/20/2024 Travel 12/17/2024 10:50 AM CDT - 12/17/2024 11:59 PM CDT [facility] [address] [place] [address] Kay Cabrales PAC Discharge Disposition: Discharged to home or Selfcare 12/17/2024 Travel 12/16/2024 [facility] [place] [address] [place] [address] Kay Cabrales PAC Medication Refill 12/08/2024 [facility] [address] [place] [address] Nancy Goldman Care Management 12/03/2024 10:27 AM CDT - 12/03/2024 11:59 PM CDT [facility] [address] [place] [address] Dami Santamaria MD Discharge Disposition: Discharged to home or Selfcare 12/02/2024 Travel 11/19/2024 9:40 AM CDT - 11/19/2024 11:59 PM CDT [facility] [address] [place] [address] Dami Santamaria MD Discharge Disposition: Discharged to home or Selfcare 11/17/2024 Travel 11/11/2024 Results Follow-Up [facility] [address] [place] [address] Kay Cabrales, PAC ADULT TRANS THORACIC ECHO 2D COMPLETE, EKG 12 LEAD 11/05/2024 3:56 PM CDT - 11/05/2024 11:59 PM CDT Hospital En[facility] [address] [place] [address] Kay Cabrales, PAC Discharge Disposition: Discharged to home or Selfcare 11/04/2024 Travel from Last 3 Months Immunizations Immunization Administration Dates Next Due Covid-19, Mrna, Lnp-s, PF, 1 00 mcg/0.5 mL Dose (Moderna) 07/26/2020,07/06/2020 Influenza Vaccine greater than 3 yrs 02/18/2015, 05/21/2012 Influenza Vaccine, MDCK,quad rivalent, pres free 04/01/2016 Influenza Vaccine, Quadrivalent, PF 01/20,04/03/2019,02/14/2018,2016 Influenza, High-dose, Quadrivalent 02/18/2020 Influenza, Quadrivalent, Adjuvanted 02/08/2023,1 Influenza, high-dose, trivalent, PF 06/10/2024,0 02/18/2020 Pneumococcal Vaccine - 13 Valent 04/05/2018 Pneumococcal Vaccine Adult - 23 Valent 04/03/2019 RSV, Recombinant, Protein Sweet bunit Rsvpref, Adjuvant Recon (Arexvy) 09/12/2023 TD VACCINE 05/21/2007 Family History Medical History Relation Name Comments Heart Attack Father Salomon Rodriguez No Known Problems Half-Brother 1 No Known Problems Half-Brother 2 No Known Problems Half-Brother 3 No Known Problems Half-Sister Hypertension Maternal Aunt 1 Stroke Maternal Aunt 1 Hypertension Maternal Aunt 2 Domie Zimmer Stroke Maternal Aunt 3 Tiffanie Florian Cancer Maternal Grandfather Bahman Saunders Gall Bl adder Cancer Maternal Grandmother Teresafranck Roman reatic. Alzheimer's Disease Mother Diabetes Mother Cancer Paternal Grandmother N/A Diabetes Sister 1 Hypothyroidism Sister 2 Lucila Tigre No Known Problems Son Relation Name Status Comments Father Salomon Rodriguez Half-Brother 1 Alive Half-Brother 2 Alive Half-Brother 3 Alive Half-Sister Alive Maternal Aunt 1 Alive Maternal Aunt 2 Victoria Zimmer Alive Maternal Aunt 3 Tiffanie Du Alive Maternal Grandfather Bahman Saunders Maternal Grandmother Teresa Saunders Mother Paternal Grandmother N/A Alive Sister 1 Alive Sister 2 Lucila Landeros Alive Son Alive Social History Tobacco Use Types Packs/Day Years Used Date Smoking Tobacco: Never Smokeless Tobacco: Never Tobacco Cessation:Counseling Given: Not Answered Alcohol Use Standard Drinks/Week Comments Not Currently 0 (1 standard drink = 0.6 oz pur e alcohol) Occasionally. [facility] Utilities Answer Date Recorded In the past 12 months has vufind electric, gas, oil, or water company threatened to shut off services in your home? No 09/17/2024 Social Connection and Isolation Panel Answer Date Recorded In a typical week, how many times do you talk on the phone with family, friends, or neighbors? More than three times a week 09/17/2024 How often do you get togethe r with friends or relatives? Three times a week 09/17/2024 How often do you attend chur ch or advent services? More than 4 times per year 09/17/2024 Do you belong to any clubs o r organizations such as mandaen groups, unions, fraternal or athletic groups, or school groups? Yes 09/17/2024 How often do you attend meet ings of the clubs or organizations you belong to? More than 4 times per year 09/17/2024 Are you , , di vorced, , never , or living with a partner? 09/17/2024 AUDIT-C Answer Date Recorded Q1: How often do you have a drink containing alcohol? Never 09/17/2024 Q2: How many drinks containi ng alcohol do you have on a typical day when you are drinking? Patient does not drink Q3: How often do you have si x or more drinks on one occasion? Never 09/17/2024 Overall Financial Resource Strain (CARDIA) Answe r Date Recorded How hard is it for you to pa y for the very basics like food, housing, medical care, and heating? Not hard at all 09/17/2024 PHQ-2 Answer Date Recorded Total Score - Questions 1-9 0 05/0 06/2024 [facility] - Occupational Stress Questionnaire Answer Date Recorded Do you feel stress - tense, restless, nervous, or anxious, or unable to sleep at night because your mind is troubled all the time - these days? Not at all 09/17/2024 Exercise Vital Sign Answer Date Recorde d On average, how many days pe r week do you engage in moderate to strenuous exercise (like a brisk walk)? 5 days 09/17/2024 On average, how many minutes do you engage in exercise at this level? 60 min 09/17/2024 Hunger Vital Sign Answer Date Recorded Within the past 12 months, y ou worried that your food would run out before you got the money to buy more. Never true 09/18/19 25 Within the past 12 months, t he food you bought just didn't last and you didn't have money to get more. Never true 09/17/2024 PRAPARE - Transportation Answer Date Re corded In the past 12 months, has l ack of transportation kept you from medical appointments or from getting medications? No 08/21 In the past 12 months, has l ack of transportation kept you from meetings, work, or from getting things needed for daily living? No 09/17/2024 Housing Stability Vital Sign Answer West e Recorded In the last 12 months, was t here a time when you were not able to pay the mortgage or rent on time? No 08/07/2023 In the last 12 months, how many places have you lived? 1 08/07/2023 In the last 12 months, was t here a time when you did not have a steady place to sleep or slept in a fdc (including now)? No 08/07/2023 Housing Stability Vital Sign Answer [place] e Recorded In the last 12 months, was t here a time when you were not able to pay the mortgage or rent on time? No 09/17/2024 Number of Times Moved in the Last Year Not on fi le 09/17/2024 At any time in the past 12 m [facility], were you homeless or living in a fdc (including now)? No 09/17/2024 Education Answer Date Recorded What is the highest level of school you have completed or the highest degree you have received? 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 Not on file Not on file Last Filed Vital Signs Vital Sign Reading Time Taken Comments Blood Pressure 132/84 12/22/2024 1:55 PM CDT Pulse 93 12/22/2024 1:55 PM CDT Temperature 36.6 C (97.9 F) 12/22/2024 1:55 PM CDT Respiratory Rate 16 08/18/2024 10:09 AM CDT Oxygen Saturation 97% 12/22/2024 1:55 PM CDT Inhaled Oxygen Concentration - - Weight 68.5 kg (151 lb) 12/22/2024 1:55 PM CDT Height 154.9 cm (5' 1) 12/22/2024 1:55 PM CDT Body Mass Index 28.53 12/22/2024 1:55 PM CDT Plan of Treatment Upcoming Encounters Date Type Department Care Team (Late st Contact Info) Description 02/19/2025 9:20 AM CDT Office Visit [facility] [address] [place] [phone] Dami Santamaria MD [address] [place] [address] Discharge Disposition: Discharged to home or Selfcare 02/19/2025 9:30 AM CDT Clinical Support [facility] [address] [place] [address] Dami Santamaria MD [address] [place] [address] Discharge Disposition: Discharged to home or Selfcare 07/02/2025 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 [address] [place] [address] Kay Cabrales, PAC [address] [place] [address] Health Maintenance Due Date Last Done Comments TdaP Immunization 1950 Zoster Immunization (1 of 2) 1969 Cologuard 12/20/1995 Immunochemical Fecal Occult Blood 12/20/1995 SARS-COV-2 Immunization ( season) 2024 09/14/2021, 03/14/2021, 07/26/2020, Additional history exists Influenza Immunization (#1) 01/19/202505/22, 02/08/2023, 03/06/2022, Additional history exists DEXA Bone Density 07/05/2025 07/05/2023, , 10/05/2016 Mammogram 12/03/2025 12/03/2024, 11/18, 11/15/2022, Additional history exists Colonoscopy 05/29/2029 05/29/2024, 01/2025, 12/20/2016 Colorectal Cancer Screening 05/29/2029 Pneumococcal Immunization (50+ years) Completed 04/03/2019, 04/05/2018 Pneumococcal Immunization Combined Discontinued 04/03/2019, 04/05/2018 Respiratory Syncytial Virus (RSV) Immunization (Adult) Completed 09/12/2023 Hepatitis B Immunization Aged Out No longer eligible based on patient's age to complete this topic Hepatitis C Virus (HCV) Screening Discontinued Human Papillomavirus (HPV) Immunization Aged Out No longer eligible based on patient's age to complete this topic Meningococcal Immunization (ACWY) Aged Out No longer eligible based on patient's age to complete this topic Rotavirus Immunization Aged Out No lo nger eligible based on patient's age to complete this topic Medical Devices Implanted Type [employer] Device Identifier Shelf Expiration Date Model / Serial / Lot [employer] Implanted W/Sut Plugs 8fr - [id number] Implanted:Qty : 1 on 03/17/2016 by Kirby Farmer MD at [facility] IMPLANT Right: Chest Wall CR BARD / BARD BIOPSY 06/17/2017 [id number] / / [id number] Procedures Procedure Name Priority Date/Time Associated Diagnosis Comments POCT GLYCOSYLATED HEMOGLOBIN Routine 12/22/2024 2:56 PM CDT Prediabetes EKG 12 LEAD Routine 12/17/2024 11:01 AM CDT Tachycardia CMP (COMPREHENSIVE METABOLIC PANEL) Routine 12/17/2024 10:53 AM CDT Malignant neoplasm of lower-outer quadrant of right breast of female, estrogen receptor positive (HCC) [facility] SCREENING BILATERAL DIGITAL W CAD W MICHEAL Less Than 3 Days 12/03/2024 10:54 AM CDT Malignant neoplasm of lower-outer quadrant of right breast of female, estrogen receptor positive (HCC) Encounter for screening mammogram for malignant neoplasm of breast CT ABDOMEN PELVIS W/ CONTRAST Routine 11/19/2024 10:07 AM CDT Malignant neoplasm of lower-outer quadrant of right breast of female, estrogen receptor positive (HCC) Lymphadenopathy POCT CREATININE Routine 11/19/2024 9:54 AM CDT ADULT TRANS THORACIC ECHO 2D COMPLETE Routine 11/05/2024 5:06 PM CDT Tachycardia STEVE BONE DENSITOMETRY AXIAL SKELETON Routine 07/05/2023 2:08 PM TRUCK PACKER Malignant neoplasm of lower-outer quadrant of right breast of female, estrogen receptor positive 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, multiple sites from Last 3 Months or Most Recently Relevant to Health Maintenance Results * (ABNORMAL) POCT GLYCOSYLATED HEMOGLOBIN (12/22/2024 2:56 PM CDT) HGB-A1C 6.1(A) 4 - 6 % 12/22/2024 2:56 PM CDT Kay Cabrales PAC POINT OF CARE TESTING (M ANUAL) Final Result * EKG 12 LEAD (12/17/2024 11:01 AM CDT) Ventricular Rate 78 BPM EXTERNAL EKG Atrial Rate 78 BPM EXTERNAL EKG P-R Interval 192 ms EXTERNAL EKG QRS Duration 74 ms EXTERNAL EKG Q-T Duration 394 ms EXTERNAL EKG QTC CALCULATION 449 ms EXTERNAL EKG P [place] 46 degrees EXTERNAL EKG R [place] -22 degrees EXTERNAL EKG T [place] 26 degrees EXTERNAL EKG 12/17/2024 11:0 1 AM CDT Impressions EXTERNAL EKG - 12/23/2024 10:38 AM CDT Normal sinus rhythm Minimal voltage criteria for LVH, may be normal variant ( R in aVL ) Borderline ECG When compared with ECG of 15-MAR-2016 12:45, No significant change was found Confirmed by BONI MELÉNDEZ ([id number]) on 12/23/2024 10:38:30 AM Narrative Procedure Note Boni Meléndez MD - 12/23/2024 IMPRESSION: Normal sinus rhythm Minimal voltage criteria for LVH, may be normal variant ( R in aVL ) Borderline ECG When compared with ECG of 15-MAR-2016 12:45, No significant change was found Confirmed by BONI MELÉNDEZ ([id number]) on 12/23/2024 10:38:30 AM Rachel Kerno PAC IMG ECG ORDERABLES Final Result EXTERNAL EKG * (ABNORMAL) CMP (COMPREHENSIVE METABOLIC PANEL) (12/17/2024 10:53 AM CDT) SODIUM 140 136 - 145 mmol/L 12/17/2024 1:05 PM CDT [facility] POTASSIUM 4.3 3.5 - 5.1 mmol/L 12/17/2024 1:05 PM CDT [facility] CHLORIDE 106 98 - 107 mmol/L 12/17/2024 1:05 PM CDT [facility] CO2, VENOUS 25 22 - 30 mmol/L 12/17/2024 1:05 PM [facility] ANION GAP 13.3 <18.0 mmol/L 12/17/2024 1:05 PM [facility] GLUCOSE 110(H) 70 - 99 mg/dL 12/17/2024 1:05 PM [facility] BUN 11 10 - 20 mg/dL 12/17/2024 1:05 PM [facility] CREATININE, BLOOD 0.83 0.60 - 1.00 mg/dL 12/17/2024 1:05 PM [facility] BUN/CREATININE RATIO 13 12 - 20 ratio 12/17/2024 1:05 PM [facility] TOTAL PROTEIN 7.6 6.0 - 8.0 g/dL 12/17/2024 1:05 PM [facility] ALBUMIN 4.6 3.5 - 5.0 g/dL 12/17/2024 1:05 PM [facility] A/G RATIO 1.5 1.0 - 2.2 12/17/2024 1:05 PM [facility] CALCIUM 9.4 8.7 - 10.5 mg/dL 12/17/2024 1:05 PM [facility] T BILI 0.5 0.2 - 1.2 mg/dL 12/17/2024 1:05 PM [facility] SGOT (AST) 32 <43 U/L 12/17/2024 1:05 PM [facility] SGPT (ALT) 24 <56 U/L 12/17/2024 1:05 PM [facility] ALKALINE PHOSPHATASE 43 40 - 150 U/L 12/17/2024 1:05 PM [facility] IS THE PATIENT REQUIRED TO BE FASTING? No 12/17/2024 1:05 PM [facility] GFR, ESTIMATED >60 >=60 12/17/2024 1:05 PM [facility] Comment: Creatinine Clearance is the preferred criteria for selecting drug dose adjustments in renally impaired patients. The GFR is provided as additional pertinent clinical information. GFR is reported in mL/min/1.73 sq m. Calculation based on the Chronic Kidney Disease Epidemiology Collaboration (CKD- EPI) equation refit without adjustment for race. GFR, EST. >60 >=60 025 1:05 PM CDT [facility] GFR, EST. NONAFRICAN >60 >=60 12/17/2024 1:05 PM CDT [facility] Blood Venipuncture / Unknown 12/17/2024 10:53 AM CDT 12/17/2024 12:38 PM CDT us Dami Santamaria MD CHEMISTRY ORDERABLES Fin al Result [facility] [address] [place] [address] * STEVE SCREENING BILATERAL DIGITAL W CAD W MICHEAL (12/03/2024 10:54 AM CDT) Anatomical Region Laterality Modality breast Bilateral Mammography 12/03/2024 10:5 0 AM CDT Narrative 12/03/2024 4:39 PM CDT - STEVE SCREENING BILATERAL DIGITAL W CAD W MICHEAL BILATERAL DIGITAL SCREENING MAMMOGRAM 3D/2D WITH CAD WITH MEDIOLATERAL OBLIQUE CRANIOCAUDAL: 12/03/2024 The study was acquired using digital technology and interpreted from soft copy. Current study was also evaluated with ICAD version 7.2. 2D digital mammographic views, as well as 3D digital tomosynthesis were performed in the CC and MLO projections. CLINICAL: Routine screening. Patient has no complaints. No personal history of cancer. No family history of breast cancer. COMPARISONS: Comparison is made to exams dated: 11/28/2023, 11/15/2022, and 11/15/[address] [facility]. BREAST TISSUE:There are scattered areas of fibroglandular density. FINDINGS: There are benign calcifications in the right breast. There also are benign post operative findings in the right breast. No significant masses, calcifications, or other findings are seen in either breast. There has been no significant interval change. IMPRESSION: BENIGN There is no mammographic evidence of malignancy. A 1 year screening mammogram is recommended. A letter will be sent to the patient with these results. The patient will be entered into a reminder system with a target due date of 1 year for her next screening exam. Electronically signed by: Arnav Wilson M.D. ll/penrad:12/03/2024 15:59:06 Agricultural Commodities Grader(s): RT Jeaneth(R)(M), [facility] letter sent: Normal Exam Reading location: [place] Mammogram BI-RADS: Category 2: Benign Procedure Note Arnav Wilson MD - 12/03/2024 - STEVE SCREENING BILATERAL DIGITAL W CAD W MICHEAL BILATERAL DIGITAL SCREENING MAMMOGRAM 3D/2D WITH CAD WITH MEDIOLATERAL OBLIQUE CRANIOCAUDAL: 12/03/2024 The study was acquired using digital technology and interpreted from soft copy. Current study was also evaluated with ICAD version 7.2. 2D digital mammographic views, as well as 3D digital tomosynthesis were performed in the CC and MLO projections. CLINICAL: Routine screening. Patient has no complaints. No personal history of cancer. No family history of breast cancer. COMPARISONS: Comparison is made to exams dated: 11/28/2023, 11/15/2022, and 11/15/[address] [facility]. BREAST TISSUE:There are scattered areas of fibroglandular density. FINDINGS: There are benign calcifications in the right breast. There also are benign post operative findings in the right breast. No significant masses, calcifications, or other findings are seen in either breast. There has been no significant interval change. IMPRESSION: BENIGN There is no mammographic evidence of malignancy. A 1 year screening mammogram is recommended. A letter will be sent to the patient with these results. The patient will be entered into a reminder system with a target due date of 1 year for her next screening exam. Electronically signed by: Arnav vásquez/penrad:12/03/2024 15:59:06 Agricultural Commodities Grader(s): RT Jeaneth(R)(M), [facility] letter sent: Normal Exam Reading location: [place] Mammogram BI-RADS: Category 2: Benign Dami Santamaria MD IMG MAMMO ORDERABLES Fin al Result * CT ABDOMEN PELVIS W/ CONTRAST (11/19/2024 10:07 AM CDT) Anatomical Region Laterality Modality Abdomen N/A Computed Tomogra phy 12/02/2024 3:40 PM CDT Impressions 12/02/2024 3:43 PM CDT IMPRESSION: Enlarged left para-aortic lymph node measuring 1.3 x 2.0 cm, previously 1.3 x 1.8 cm. Nonobstructing 5 mm calculus in the interpolar region of the left kidney. Narrative 12/02/2024 3:43 PM CDT EXAM DESCRIPTION: CT ABDOMEN PELVIS W/ CONTRAST REASON FOR STUDY: F/ lymphadenopathy x 2years TECHNIQUE: CT scan of the abdomen and pelvis performed with intravenous and without oral contrast using helical scanning technique with dynamic intravenous contrast injection. Reconstructed coronal and sagittal MPR images reviewed. All images stored on PACS. Automated exposure control was used as a dose optimization technique for this examination. CONTRAST TYPE/DOSE: 100mL of IOPAMIDOL 76 % IV SOLN injected via Intravenous COMPARISON: CT abdomen pelvis 02/26/2024 FINDINGS: LOWER CHEST: There is scarring and subsegmental atelectasis in the lung bases. LIVER: Normal size. No identified cystic or solid masses. GALLBLADDER: Surgically absent. BILE DUCTS: No intrahepatic or extrahepatic ductal dilatation. SPLEEN: Normal size. No focal lesions. PANCREAS: No identified cystic or solid masses. No significant calcifications. No adjacent inflammation or peripancreatic fluid collections. Pancreatic duct not dilated. ADRENALS: Normal. KIDNEYS/URINARY TRACT: There is a nonobstructing 5 mm calculus in the interpolar region of the left kidney. There are simple cysts in the right kidney. There is no hydronephrosis or hydroureter. Urinary bladder is unremarkable. GI: No dilated bowel loops. No obvious wall thickening. The appendix is not seen. No significant diverticular disease. PERITONEUM: No ascites or free air. There are several small central mesenteric lymph nodes, nonenlarged by size criteria. RETROPERITONEUM: There is a left para-aortic lymph node measuring 1.3 x 2.0 cm, previously 1.3 x 1.8 cm. REPRODUCTIVE: Hysterectomy. VASCULATURE: Small amount of atherosclerotic plaque in the aorta and iliac vessels without aneurysm. MUSCULOSKELETAL: There is no suspicious osseous lesion. There is a small fat containing umbilical hernia. OTHER: No other abnormality. THIS IS AN ELECTRONICALLY VERIFIED FINAL REPORT 12/02/2024 3:40 PM - Electronically signed by Kenneth Bay M.D. AM: AM Report ID: [id number] Reading Location: [id number] Procedure Note Kenneth Bay MD - 12/02/2024 EXAM DESCRIPTION: CT ABDOMEN PELVIS W/ CONTRAST REASON FOR STUDY: F/ lymphadenopathy x 2years TECHNIQUE: CT scan of the abdomen and pelvis performed with intravenous and without oral contrast using helical scanning technique with dynamic intravenous contrast injection. Reconstructed coronal and sagittal MPR images reviewed. All images stored on PACS. Automated exposure control was used as a dose optimization technique for this examination. CONTRAST TYPE/DOSE: 100mL of IOPAMIDOL 76 % IV SOLN injected via Intravenous COMPARISON: CT abdomen pelvis 02/26/2024 FINDINGS: LOWER CHEST: There is scarring and subsegmental atelectasis in the lung bases. LIVER: Normal size. No identified cystic or solid masses. GALLBLADDER: Surgically absent. BILE DUCTS: No intrahepatic or extrahepatic ductal dilatation. SPLEEN: Normal size. No focal lesions. PANCREAS: No identified cystic or solid masses. No significant calcifications. No adjacent inflammation or peripancreatic fluid collections. Pancreatic duct not dilated. ADRENALS: Normal. KIDNEYS/URINARY TRACT: There is a nonobstructing 5 mm calculus in the interpolar region of the left kidney. There are simple cysts in the right kidney. There is no hydronephrosis or hydroureter. Urinary bladder is unremarkable. GI: No dilated bowel loops. No obvious wall thickening. The appendix is not seen. No significant diverticular disease. PERITONEUM: No ascites or free air. There are several small central mesenteric lymph nodes, nonenlarged by size criteria. RETROPERITONEUM: There is a left para-aortic lymph node measuring 1.3 x 2.0 cm, previously 1.3 x 1.8 cm. REPRODUCTIVE: Hysterectomy. VASCULATURE: Small amount of atherosclerotic plaque in the aorta and iliac vessels without aneurysm. MUSCULOSKELETAL: There is no suspicious osseous lesion. There is a small fat containing umbilical hernia. OTHER: No other abnormality. THIS IS AN ELECTRONICALLY VERIFIED FINAL REPORT 12/02/2024 3:40 PM - Electronically signed by Kenneth Bay M.D. AM: AM Report ID: [id number] Reading Location: [id number] IMPRESSION: Enlarged left para-aortic lymph node measuring 1.3 x 2.0 cm, previously 1.3 x 1.8 cm. Nonobstructing 5 mm calculus in the interpolar region of the left kidney. us Dami Santamaria MD IMG CT ORDERABLES Final Result * POCT CREATININE (11/19/2024 9:54 AM CDT) [facility] CREATININE - POCT 1.0 0.6 - 1.3 mg/dL 11/19/2024 9:55 AM CDT [facility] Blood 11/19/2024 9:54 AM CDT 11/19/2024 9:55 AM CDT us None Provider POINT OF CARE TESTING Final Resu lt [facility] [address] [place] [address] * ADULT TRANS THORACIC ECHO 2D COMPLETE (11/05/2024 5:06 PM CDT) [facility] AV Peak Grad mmHg 5.86 mmHg RESULTING AGENCY Mean Aortic Valve Gradient (MAVG) 4 mmHg RESULTING AGENCY LV end ferddie diam cm 3.4 cm RESULTING AGENCY LV end sys diam cm 2.1 cm RESULTING AGENCY Aortic Root Diam cm 2.4 cm RESULTING AGENCY LA vol index ml/m2 9 ml/m2 RESULTING AGENCY LVOT Peak Kvng m/sec 1.01 m/sec RESULTING AGENCY AV Peak Kvng m/sec 1.21 m/sec RESULTING AGENCY MV Mean Grad mmHg 2 mmHg RESULTING AGENCY MVA by PHT cm2 2.86 cm2 RESUL TING AGENCY E/A Ratio 0.51 RESULTING AGENCY TR Kvng m/sec 1.94 m/sec RESULTI NG AGENCY E/E' 5.4 RESULTING AGENCY AV Area (VTI) cm2 2.56 cm2 RESULTING AGENCY SEPTUM DIASTOLIC CM 1.3 cm RESULTING AGENCY PW DIASTOLIC CM 1 cm RESU LTING AGENCY LA VOLUME 14.6 ml RESULTING AGENCY LV EF(estimated)% 68 RESULTING AGENCY Anatomical Region Laterality Modality CARDIO N/A Ultrasound Narrative 11/06/2024 12:28 PM CDT Transthoracic Echocardiography Report (TTE) Patient name LISSETT Lou Reanna 1950 Patient ID (UPI) [id number] Indications: Tachycardia. Study Date11/05/2024 Technical quality: Limited visualization Limitation Reason: Lung artifact Type of Study: TTE procedure: Adult Trans Thoracic Echo 2D Complete. Priority:RoutineHR: 87 bpmBP: 140/92 mmHg Contrast Medium: Lumason. Amount - 3 ml Conclusions Summary The left ventricle is normal in size. Wall thickness is normal. LV function is normal. There are no regional wall motion abnormalities. LV EF of 65-70%. Grade I diastolic dysfunction. Findings Mitral Valve The mitral valve is normal. There is no evidence of mitral stenosis. There is no significant mitral regurgitation. Aortic Valve The aortic valve is trileaflet with normal leaflet excursion. There is no evidence of aortic valve stenosis. Trace AI Tricuspid Valve The tricuspid valve is normal. There is no evidence of tricuspid stenosis. Trace tricuspid valve regurgitation. Insufficient TR jet to estimate PASP. Pulmonic Valve The pulmonic valve structure appears normal. There is no evidence of pulmonic stenosis. There is no significant pulmonic valve regurgitation. Left Atrium The left atrium size is normal. Left Ventricle The left ventricle is normal in size. Wall thickness is normal. LV function is normal. There are no regional wall motion abnormalities. LV EF of 65-70%. Grade I diastolic dysfunction. Right Atrium The right atrium size is normal. Right Ventricle Normal right ventricular cavity size and normal systolic function. Pericardial Effusion The pericardium is normal. There is no pericardial effusion visualized. Miscellaneous Aortic root and proximal ascending aorta are normal in size. Atrial septum appears intact. IVC is normal in size and respiratory response. Aortic arch appears normal. Valves Mitral Valve Area (PHT): 2.86 cm^2 Area (continuity): 3.03 cm^2 Peak E-Wave: 0.53 m/s Mean Velocity: 0.57 m/s Peak A-Wave: 1.05 m/s Mean Gradient: 2 mmHg Peak Gradient: 1.14 mmHg Deceleration Time: 261 msec P1/2t: 77 msec Tissue Doppler E' Velocity: 0.07 m/s E/E':5.4 E/A Ratio: 0.51 E/Lat E': 5.4 E/Med E':6.9 Aortic Valve Area (continuity): 2.56 cm^2 Mean Velocity: 0.90 m/s Area (VTI):2.55 cm^2 Mean Gradient: 4 mmHg Peak Velocity: 1.21 m/s AV VTI: 21 cm Peak Gradient: 5.86 mmHg Tricuspid Valve Peak E-Wave: 0.59 m/s Peak Gradient: 1.43 mmHg TR Velocity: 1.94 m/s TR Gradient: 15.05 mmHg Pulmonic Valve Peak Velocity: 0.87 m/s Mean Velocity: 0.67 m/s Peak Gradient: 3.09 mmHg Mean Gradient: 2 mmHg LVOT Peak Velocity: 1.01 m/s Mean Velocity: 0.72 m/s Peak Gradient: 4 mmHg Mean Gradient: 2 mmHg LVOT Diameter: 1.9 cm LVOT VTI: 18.9 cm Stroke Volume: 54 ml Stroke Volume Index: 32.34 ml/m^2 Structures Left Ventricle Diastolic Dimension: 3.4 cm Systolic Dimension: 2.1 cm Septum Diastolic: 1.3 cm Septum Systolic: 1.4 cm PW Diastolic: 1 cm PW Systolic: 1.3 cm Diastolic Length: 11.5 cm Systolic Length: 5.55 cm EF Calculated: 73.94% CI: 2.79 l/min*m^2 CO: 4.66 l/min RWT: 0.59 LV EDV: 58.7 ml FS: 38.24 % LV EDV Index: 35 m^2 LV Length: 6.82 cm LV ESV: 15.3 ml LVOT Diameter: 1.9 cm LV ESV Index: 9 m^2 Global Longitudinal Strain:-16.4 Right Ventricle RV basal dimension:2.6 cm RVOT (PLAX) diameter:3.1 cm RV mid dimension:2 cm RV longitudinal dimension:6.4 cm Tissue Doppler RV S': 11.5 TAPSE: 1.83 cm Left Atrium LA Systolic Pressure: 8.76 mmHg LA Area: 9.5 cm^2 LA Volume: 14.6 ml LA Index: 9ml/m^2 Right Atrium RA Area: 9.36 cm^2 Great Vessels Aorta Ascending Aorta: 2.8 cm Aorta Root:2.4 cm Ascending Aorta Index:1.68 cm/m^2 Demographics Age 73 Gender Female Race Other Height 60.98 in. Weight 150 lbs. BMI (BSA) 28.36 kg/m^2 (1.67 m^2) Office Rn Gloria Morgan Referring Physician Diamond Physician Medhat Sharpe Procedure Note Boni Meléndez MD - 11/06/2024 Transthoracic Echocardiography Report (TTE) Patient name LISSETT Lou Reanna 1950 Patient ID (UPI) [id number] Indications: Tachycardia. Study Date11/05/2024 Technical quality: Limited visualization Limitation Reason: Lung artifact Type of Study: TTE procedure: Adult Trans Thoracic Echo 2D Complete. Priority:RoutineHR: 87 bpmBP: 140/92 mmHg Contrast Medium: Lumason. Amount - 3 ml Conclusions Summary The left ventricle is normal in size. Wall thickness is normal. LV function is normal. There are no regional wall motion abnormalities. LV EF of 65-70%. Grade I diastolic dysfunction. Findings Mitral Valve The mitral valve is normal. There is no evidence of mitral stenosis. There is no significant mitral regurgitation. Aortic Valve The aortic valve is trileaflet with normal leaflet excursion. There is no evidence of aortic valve stenosis. Trace AI Tricuspid Valve The tricuspid valve is normal. There is no evidence of tricuspid stenosis. Trace tricuspid valve regurgitation. Insufficient TR jet to estimate PASP. Pulmonic Valve The pulmonic valve structure appears normal. There is no evidence of pulmonic stenosis. There is no significant pulmonic valve regurgitation. Left Atrium The left atrium size is normal. Left Ventricle The left ventricle is normal in size. Wall thickness is normal. LV function is normal. There are no regional wall motion abnormalities. LV EF of 65-70%. Grade I diastolic dysfunction. Right Atrium The right atrium size is normal. Right Ventricle Normal right ventricular cavity size and normal systolic function. Pericardial Effusion The pericardium is normal. There is no pericardial effusion visualized. Miscellaneous Aortic root and proximal ascending aorta are normal in size. Atrial septum appears intact. IVC is normal in size and respiratory response. Aortic arch appears normal. Valves Mitral Valve Area (PHT): 2.86 cm^2 Area (continuity): 3.03 cm^2 Peak E-Wave: 0.53 m/s Mean Velocity: 0.57 m/s Peak A-Wave: 1.05 m/s Mean Gradient: 2 mmHg Peak Gradient: 1.14 mmHg Deceleration Time: 261 msec P1/2t: 77 msec Tissue Doppler E' Velocity: 0.07 m/s E/E':5.4 E/A Ratio: 0.51 E/Lat E': 5.4 E/Med E':6.9 Aortic Valve Area (continuity): 2.56 cm^2 Mean Velocity: 0.90 m/s Area (VTI):2.55 cm^2 Mean Gradient: 4 mmHg Peak Velocity: 1.21 m/s AV VTI: 21 cm Peak Gradient: 5.86 mmHg Tricuspid Valve Peak E-Wave: 0.59 m/s Peak Gradient: 1.43 mmHg TR Velocity: 1.94 m/s TR Gradient: 15.05 mmHg Pulmonic Valve Peak Velocity: 0.87 m/s Mean Velocity: 0.67 m/s Peak Gradient: 3.09 mmHg Mean Gradient: 2 mmHg LVOT Peak Velocity: 1.01 m/s Mean Velocity: 0.72 m/s Peak Gradient: 4 mmHg Mean Gradient: 2 mmHg LVOT Diameter: 1.9 cm LVOT VTI: 18.9 cm Stroke Volume: 54 ml Stroke Volume Index: 32.34 ml/m^2 Structures Left Ventricle Diastolic Dimension: 3.4 cm Systolic Dimension: 2.1 cm Septum Diastolic: 1.3 cm Septum Systolic: 1.4 cm PW Diastolic: 1 cm PW Systolic: 1.3 cm Diastolic Length: 11.5 cm Systolic Length: 5.55 cm EF Calculated: 73.94% CI: 2.79 l/min*m^2 CO: 4.66 l/min RWT: 0.59 LV EDV: 58.7 ml FS: 38.24 % LV EDV Index: 35 m^2 LV Length: 6.82 cm LV ESV: 15.3 ml LVOT Diameter: 1.9 cm LV ESV Index: 9 m^2 Global Longitudinal Strain:-16.4 Right Ventricle RV basal dimension:2.6 cm RVOT (PLAX) diameter:3.1 cm RV mid dimension:2 cm RV longitudinal dimension:6.4 cm Tissue Doppler RV S': 11.5 TAPSE: 1.83 cm Left Atrium LA Systolic Pressure: 8.76 mmHg LA Area: 9.5 cm^2 LA Volume: 14.6 ml LA Index: 9ml/m^2 Right Atrium RA Area: 9.36 cm^2 Great Vessels Aorta Ascending Aorta: 2.8 cm Aorta Root:2.4 cm Ascending Aorta Index:1.68 cm/m^2 Demographics Age 73 Gender Female Race Other Height 60.98 in. Weight 150 lbs. BMI (BSA) 28.36 kg/m^2 (1.67 m^2) Office Rn Gloria Morgan Referring Physician Diamond Physician Medhat Sharpe Kay Tapia Keron PAC IMG ECHO ORDERABLES Edit ed Result - Final * [facility] BONE DENSITOMETRY AXIAL SKELETON (07/05/2023 2:08 PM TRUCK PACKER) Anatomical Region Laterality Modality BODY N/A Computed Radiogr aphy 07/05/2023 2:33 PM TRUCK PACKER Impressions 07/05/2023 2:35 PM TRUCK PACKER IMPRESSION: Low Bone Mass. REFERENCE: Bone mineral density: Normal (T-score above or = -1.0) Low bone mass (T-score between -1.0 and -2.5) replaces the previously used term osteopenia Osteoporosis (T-score = or below -2.5) Please see below follow up recommendations. Medical evaluation for secondary causes of low bone mineral density may be appropriate. FRAX is a World Health Organization validated fracture risk assessment tool that calculates a person's 10 year probability of a major osteoporosis related fracture and hip fracture. According to the National Osteoporosis Foundation guidelines, postmenopausal women and men age 50 or older with low bone mass and a 10 year probability of a major osteoporosis related fracture = or greater than 20% or a 10 year probability of a hip fracture = or greater than 3% should be considered for pharmacological treatment for the prevention of osteoporosis. For further information, including treatment recommendations, please refer to the 2019 ISCD Official Positions (http://www.iscd.org) and the NOF's Clinician's Guide to Prevention and Treatment of Osteoporosis (http://www.nof.org/professionals/clinical-guidelines) Narrative 07/05/2023 2:35 PM TRUCK PACKER EXAM DESCRIPTION: [facility] BONE DENSITOMETRY AXIAL SKELETON REASON FOR STUDY: 72 year old postmenopausal female with given history of: Malignant neoplasm of lower-outer quadrant of right breast of female, estrogen receptor positive , Osteopenia due to cancer therapy, Other specified disorders of bone density and structure, multiple sites [employer] Spanish Teacher/Model: [employer] ([id number]/N [id number]) CLINICAL INFORMATION: Current height: 61 inches Maximum height: 62 inches Weight: 145 pounds Risk factors: Secondary osteoporosis. Surgical menopause at age 40. Has taken Prolia, vitamin-D, multivitamin, hormone replacement therapy, and chemotherapy. Performs regular weight-bearing exercise. Does not regularly consume dairy products. Drinks caffeinated beverages. COMPARISON: December 24, 2020 FINDINGS: AP LUMBAR SPINE L1-L4: Total BMD is 1.331 g/cm2 T-score is 1.1 This is 5.5% increase in comparison to prior exam which is statistically significant. LEFT HIP: Total BMD is 0.973 g/cm2 T-score is -0.3 This is 1.8% decrease in comparison to prior exam which is not statistically significant. Femoral neck BMD is 0.883 g/cm2 T-score is -1.1 FRAX: 10 year risk for a major osteoporotic fracture is 5.4 %, 10 year risk for a hip fracture is 0.7 % THIS IS AN ELECTRONICALLY VERIFIED FINAL REPORT 07/05/2023 2:33 PM - Electronically signed by Omari Hannon M.D. 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 Surgical menopause at age 40. Has taken Prolia, vitamin-D, multivitamin, hormone replacement therapy, and chemotherapy. Performs regular weight-bearing exercise. Does not regularly consume dairy products. Drinks caffeinated beverages. COMPARISON: December 24, 2020 FINDINGS: AP LUMBAR SPINE L1-L4: Total BMD is 1.331 g/cm2 T-score is 1.1 This is 5.5% increase in comparison to prior exam which is statistically significant. LEFT HIP: Total BMD is 0.973 g/cm2 T-score is -0.3 This is 1.8% decrease in comparison to prior exam which is not statistically significant. Femoral neck BMD is 0.883 g/cm2 T-score is -1.1 FRAX: 10 year risk for a major osteoporotic fracture is 5.4 %, 10 year risk for a hip fracture is 0.7 % THIS IS AN ELECTRONICALLY VERIFIED FINAL REPORT 07/05/2023 2:33 PM - Electronically signed by Omari Hannon M.D. RB: IFTIKHAR Report ID: [id number] Reading Location: [place] [address] IMPRESSION: Low Bone Mass. REFERENCE: Bone mineral density: Normal (T-score above or = -1.0) Low bone mass (T-score between -1.0 and -2.5) replaces the previously used term osteopenia Osteoporosis (T-score = or below -2.5) Please see below follow up recommendations. Medical evaluation for secondary causes of low bone mineral density may be appropriate. FRAX is a World Health Organization validated fracture risk assessment tool that calculates a person's 10 year probability of a major osteoporosis related fracture and hip fracture. According to the National Osteoporosis Foundation guidelines, postmenopausal women and men age 50 or older with low bone mass and a 10 year probability of a major osteoporosis related fracture = or greater than 20% or a 10 year probability of a hip fracture = or greater than 3% should be considered for pharmacological treatment for the prevention of osteoporosis. For further information, including treatment recommendations, please refer to the 2019 ISCD Official Positions (http://www.iscd.org) and the NOF's Clinician's Guide to Prevention and Treatment of Osteoporosis (http://www.nof.org/professionals/clinical-guidelines) [facility] Kimberly Santamaria MD IMG DEXA ORDERABLES Greta l Result from Last 3 Months or Most Recently Relevant to Health Maintenance Insurance MEDICARE [employer]CIAL [employer]IC Care Teams Secretarial Stenographer Relationship Specialty Start Date End Date Kay Cabrales PAC [address] [place] [address] PCP - General Physician Flame Hardening Machine Operator 08/06/23 Dami Santamaria MD Consulting Physician Hematology 08/21/16 Erik Pathak MD Consulting Physician Radiation Oncology 09/22/16 Christiano Gregory MD [address] [address] Consulting Physician Endocrinology 01/10/22 Eyad Regalado MD [address] [address] Consulting Physician Colon and Rectal Surgery 04/02/24
--- OUTSIDE RECORDS SUMMARY | 2025-01-02 09:49 | XMS_ITS | Encounter Summary ---
Author Organization [facility] Address [address] [place] [address] Phone Care Team Providers Care Bacon Slicer Name Role Phone Kaitlynn Christianson MD Primary Care Provider [phone] Dami Santamaria MD Unavailable [phone] Erik Pathak MD Unavailable [phone] Ct, [facility] Unavailable Sharon vailable Christiano Gregory MD Unavailable Ana Theodore MD Primary Care Provider Kay Cabrales Primary Care Provider + Eyad Regalado MD Unavailable Reason for Visit * Reason Comments Medication Refill Encounter Details Date Type Department Care Team (Late st Contact Info) Description 04/26/2020 Refill [facility] Medical Oncology [address] [place] [address] Dami Santamaria MD [address] [place], [place] [id number] Medication Refill Social History Tobacco Use Types [...] 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 BIT TECHNICIAN documented in this encounter Plan of Treatment Upcoming Encounters Date Type Department Care Team (Late st Contact Info) Description 02/19/2025 9:20 AM CDT Office Visit [facility] [place] [facility] [address] [place] [address] Dami Santamaria MD [address] [place] [address] Discharge Disposition: Discharged to home or Selfcare 02/19/2025 9:30 AM CDT Clinical Support [facility] [address] [place] [address] Dami Santamaria MD [address] [place] [address] Discharge Disposition: Discharged to home or Selfcare 07/02/2025 2:30 PM EXHIBIT TECHNICIAN Office Visit [facility] - Family Medicine [facility] [address] [place] [address] Kay Cabrales, [facility] [address] [place] [address] documented as of this encounter Visit Diagnoses Diagnosis Malignant neoplasm of lower-outer quadrant of right female breast (HCC) Malignant neoplasm of lower-outer quadrant of female breast documented in this encounter Additional Health Concerns Assessment Noted Time PHQ-9 Depression Total Score: 0 04/03/20 19 10:00 AM EXHIBIT TECHNICIAN documented as of this encounter Care Teams Bacon Slicer Relationship Specialty Start Date End Date Kaitlynn Christianson MD PCP - General Family Medicine 03/07/15 05/09/22 Ana Theodore MD [address] [address] PCP - General Family Medicine 05/10/22 08/05/23 Kay Cabrales PAC [address] [place] [address] PCP - General Physician Donkey Ride Operator 08/06/23 Dami Santamaria MD Consulting Physician Hematology 08/21/16 Erik Pathak MD Consulting Physician Radiation Oncology 09/22/16 Ct[facility] [place] [employer] [facility] 12/13/19 12/15/20 Christiano Gregory MD [address] [address] Consulting Physician Endocrinology 01/10/22 Eyad Regalado MD [address] [address] Consulting Physician Colon and Rectal Surgery 04/02/24 documented as of this encounter
--- OUTSIDE RECORDS SUMMARY | 2025-01-02 09:49 | XMS_ITS ---
Author Organization [facility] Address [address], [facility] [address] [place] [address] Phone Care Team Providers Care Scale Operator Name Role Phone Dami Santamaria MD Unavailable [phone] Erik Pathak MD Unavailable [phone] Christiano Gregory MD Unavailable Kay Cabrales [facility] Primary Care Provider + Eyad Regalado MD Unavailable Active Problems Problem Noted Date Diagnosed Date [...] Clinical stage IIA (T2N0M0) ER/HER2 positive and OR negative [place] grade 3 invasive ductal carcinoma of her right breast that received neoadjuvant dose dense AC x 4 followed by weekly paclitaxel plus Herceptin for 10 weeks with a complete response on both physical exam and radiographically that underwent breast conserving surgery including a 2nd procedure to re-excise the primary tumor bed with [id number] disease. In the partial mastectomy specimen there [...] HLD (hyperlipidemia) Fibromyalgia Vitamin D deficiency Prediabetes Current Treatment and Therapy Plans No current plan information found. Other Current Plans SUPPORT - PROLIA (DENOSUMAB) - OSTEOPENIA* Plan Start Date:02/14/2023 Plan Provider:Dami Santamaria MD Linked Problems Other specified disorders of bone density and structure, multiple sites Treatment Medications Current Day (Day 1 , Cycle 5 - Planned for 12/18/2024) Next Day (Day 1, Cycle 6 - Planned for 06/04/2025) No medications scheduled. No medications schedul ed. No medications scheduled. Past Treatment and Therapy Plans ONCOLOGY SECONDARY SUPPORTIVE CARE Plan Name Start Date Discontinue Date Treatment Medications Discontinue Reason Plan Provider Cycles SUPPORT - PROLIA (DENOSUMAB) 11/08/2016 02/12/2023 No medications scheduled. Plan Clean Up Dami Santamaria MD 12 of 13 cycles started SUPPORT - ONPRO KIT - NEULASTA - 2 WEEK 03/21/2016 05/18/2016 No medications scheduled. Patient Preference Dami Santamaria MD 5 of 5 cycles started ONCOLOGY TREATMENT Plan Name Start Date Discontinue Date Treatment Medications Discontinue Reason Plan Provider Cycles BREAST - TRASTUZUMAB Q 3 WEEKS 09/07/19 17 07/10/2017 trastuzumab (HERCEPTIN) infusion Therapy Complete Dami Santamaria MD 7 of 7 cycles started BREAST - TAXOL / TRASTUZUMAB - WEEKLY 016 08/22/2016 PACLitaxel (TAXOL) chemo infusiontrastuzumab (HERCEPTIN) infusion Therapy Complete Dami Santamaria MD 3 of 3 cycles started BREAST - CA DOSE DENSE 03/21/20 16 05/17/2016 cyclophosphamide with mesna (CYTOXAN) chemo infusion using solrDOXOrubicin (ADRIAMYCIN) Therapy Complete Dami Santamaria MD 4 of 4 cycles started Lifetime Dose Tracking * Chemical Lifetime Dose Automatic Entry Manual Entr y Doxorubicin 241.023 mg/m2 (424.8 mg) 241.023 mg/m2 (4 24.8 mg) 0 mg/m2 (0 mg) Cyclophosphamide 2,405.688 mg/m2 (4,240 mg) 2,405.688 mg/m2 (4,240 mg) 0 mg/m2 (0 mg) Resolved Problems Problem Noted Date Diagnosed Date Resolved Date Hypercalcemia 06/28/2021 08/16/2023 Chest wall pain 07/25/2020 08/16/2023 Seasonal allergies 06/17/2020 Right axillary swelling 12/10/2019 03/0 11/2020 Lymphocytosis 12/10/2019 06/17/2020 [facility] (current) use of a romatase inhibitors 09/28/2018 [...]
--- OUTSIDE RECORDS SUMMARY | 2025-01-02 09:49 | XMS_ITS | Encounter Summary ---
Author Organization [facility] Address [address] [place] [address] Phone Care Team Providers Care Youth Pastor Name Role Phone Kaitlynn Christianson MD Primary Care Provider [phone] Dami Santamaria MD Unavailable [phone] Erik Pathak MD Unavailable [phone] Ct[facility] Unavailable Sharon vailable Christiano Gregory MD Unavailable Ana Theodore MD Primary Care Provider Kay Cabrales Primary Care Provider + Eyad Regalado MD Unavailable Reason for Visit * Reason Comments Medication Refill Encounter Details Date Type Department Care Team (Late st Contact Info) Description 07/25/2020 Refill [facility] [address] [place] [address] Kaitlynn Christianson MD [address] [place] [address] Medication Refill Social History Tobacco [...] 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 BRATION SPECIALIST documented in this encounter Plan of Treatment Upcoming Encounters Date Type Department Care Team (Late st Contact Info) Description 02/19/2025 9:20 AM CDT Office Visit [facility] [address] [place] [address] Dami Santamaria MD [address] [place] [address] Discharge Disposition: Discharged to home or Selfcare 02/19/2025 9:30 AM CDT Clinical Support [facility] [address] [place] [address] Dami Santamaria MD [address] [place] [address] Discharge Disposition: Discharged to home or Selfcare 07/02/2025 2:30 PM CALIBRATION SPECIALIST Office Visit [facility] - [facility] [address] [place] [address] Kay Cabrales, PAC [address] [place] [address] documented as of this encounter Visit Diagnoses Diagnosis Essential hypertension Unspecified essential hypertension Acquired hypothyroidism Unspecified hypothyroidism documented in this encounter Additional Health Concerns Assessment Noted Time PHQ-9 Depression Total Score: 0 04/03/20 19 10:00 AM CALIBRATION SPECIALIST documented as of this encounter Care Teams Youth Pastor Relationship Specialty Start Date End Date Kaitlynn Christianson MD PCP - General Family Medicine 03/07/15 05/09/22 Ana Theodore MD [address] [address] PCP - General Family Medicine 05/10/22 08/05/23 Kay Cabrales [facility] [address] [place] [address] PCP - General Physician Conduit Helper 08/06/23 Dami Santamaria MD Consulting Physician Hematology 08/21/16 Erik Pathak MD Consulting Physician Radiation Oncology 09/22/16 Ct[facility] 12/13/19 12/15/20 Christiano Gregory MD [address] [address] Consulting Physician Endocrinology 01/10/22 Eyad Regalado MD [address] [address] Consulting Physician Colon and Rectal Surgery 04/02/24 documented as of this encounter
--- OUTSIDE RECORDS SUMMARY | 2025-01-02 09:49 | XMS_ITS | Encounter Summary ---
Author Organization [facility] Address [address] [place] [address] Phone Care Team Providers Care Marina Manager Name Role Phone Kaitlynn Christianson MD Primary Care Provider [phone] Dami Santamaria MD Unavailable [phone] Erik Pathak MD Unavailable [phone] Christiano Gregory MD Unavailable Ana Theodore MD Primary Care Provider Kay Cabrales Primary Care Provider + Eyad Regalado MD Unavailable Reason for Visit * Reason Comments Medication Refill Encounter Details Date Type Department Care Team (Late st Contact Info) Description 01/15/2022 Refill [facility] - Primary Care - [address] [place] [address] Kaitlynn Christianson MD [address] [place] [address] Medication Refill Social History Tobacco [...] 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 No / Unsure 01/18/2022 10:43 AM CDT documented as of this encounter Miscellaneous Notes * Telephone Encounter - Amanda Andrews RN - 01/16/2022 1:02 PM CDT Medication failed the protocol, provider to review and approve the medication order if appropriate. Requested Prescriptions Pending Prescriptions Disp Refills amitriptyline (ELAVIL) 50 MG Tablet [Pharmacy Med Name: Amitriptyline HCl 50 MG Oral Tablet] 90 Tablet 0 Sig: Take 1 tablet by mouth nightly Not Delegated - Tricyclic Agents Protocol Failed - 01/15/2022 3:52 PM Failed - This refill cannot be delegated Passed - Visit with relevant provider in past 12 months or upcoming 90 days Recent Visits Date Type Provider Dept 12/26/21 Office Visit Kaitlynn Christianson MD [facility] 06/28/21 Office Visit Kaitlynn Christianson MD [facility] 02/08/21 Office Visit Kaitlynn Christianson MD [facility] Showing recent visits within past 365 [...] Hmg CoA Reductase Inhibitors Protocol Passed - 01/15/2022 3:52 PM Passed - Visit with relevant provider in past 12 months or upcoming 90 days Recent Visits Date Type Provider Dept 12/26/21 Office [facility] 06/28/21 Office Visit Kaitlynn Christianson MD [facility] 02/08/21 Office Visit Kaitlynn Christianson MD [facility] Showing recent visits within past 365 [...] Range Status 12/16/2021 121.7 <130 mg/dL Final Signed Prescriptions Disp Refills Euthyrox 75 MCG Tablet 90 Tablet 0 Sig: Take 1 tablet by mouth once daily Thyroid Hormones Protocol Passed - 01/15/2022 3:52 PM Passed - Visit with relevant provider in past 12 months or upcoming 90 days Recent Visits Date Type Provider Dept 12/26/21 Office Visit Kaitlynn Christianson MD [facility] 06/28/21 Office Visit Kaitlynn Christianson MD [facility] 02/08/21 Office Visit Kaitlynn Christianson MD [facility] Showing recent visits within past 365 [...] (TOPROL-XL) 25 MG TABLET SR 24 HR 90 Tablet 0 Sig: Take 1 tablet by mouth once daily Beta-Blockers Protocol Passed - 01/15/2022 3:52 PM Passed - BP on record in the past year Clinician-entered: BP Readings from Last 3 Encounters: 01/03/22 142/83 12/26/21 116/84 12/20/21 138/82 Patient-entered: No data recorded Passed - Visit with relevant provider in past 12 months or upcoming 90 days Recent Visits Date Type Provider Dept 12/26/21 Office Visit Kaitlynn Christianson MD [facility] [address] 06/28/21 Office Visit Kaitlynn Christianson MD [facility] [address] 02/08/21 Office Visit Kaitlynn Christianson MD [facility] [address] Showing recent visits within past 365 days and meeting all other requirements Future Appointments No visits were found meeting these conditions. Showing future appointments within next 90 days and meeting all other requirements documented in this encounter Plan of Treatment Upcoming Encounters Date Type Department Care Team (Late st Contact Info) Description 02/19/2025 9:20 AM CDT Office Visit [facility] [address] [place] [address] Dami Santamaria MD [address] [place] [address] Discharge Disposition: Discharged to home or Selfcare 02/19/2025 9:30 AM CDT Clinical Support [facility] [address] [place] [address] Dami Santamaria MD [address] [place] [address] Discharge Disposition: Discharged to home or Selfcare 07/02/2025 2:30 PM AREA ATTENDANT Office Visit [facility] - Family Medicine [facility] [address] [place] [address] Kay Cabrales, [facility] [address] [place] [address] documented as of this encounter Visit Diagnoses Diagnosis Fibromyalgia Mylagia and myositis, unspecified Acquired hypothyroidism Unspecified hypothyroidism Essential hypertension Unspecified essential hypertension documented in this encounter Additional Health Concerns Assessment Noted Time PHQ-9 Depression Total Score: 0 04/03/20 19 10:00 AM AREA ATTENDANT documented as of this encounter Care Teams Marina Manager Relationship Specialty Start Date End Date Kaitlynn Christianson MD PCP - General Family Medicine 03/07/15 05/09/22 Ana Theodore MD [address] [id number] PCP - General Family Medicine 05/10/22 08/05/23 Kay Cabrales [facility] [address] [place] [address] PCP - General Physician Parimutuel Cashier 08/06/23 Dami Santamaria MD Consulting Physician Hematology 08/21/16 Erik Pathak MD Consulting Physician Radiation Oncology 09/22/16 Christiano Gregory MD [address] [address] Consulting Physician Endocrinology 01/10/22 Eyad Regalado MD [address] [address] Consulting Physician Colon and Rectal Surgery 04/02/24 documented as of this encounter
--- OUTSIDE RECORDS SUMMARY | 2025-01-02 09:49 | XMS_ITS | Encounter Summary ---
Author Organization [facility] Address [address] [place] [address] Phone Care Team Providers Care Bottom Precipitator Operator Name Role Phone Kaitlynn Christianson MD Primary Care Provider Dami Santamaria MD Unavailable [phone] Erik Pathak MD Unavailable [phone] Christiano Gregory MD Unavailable Ana Theodore MD Primary Care Provider Kay Cabrales Primary Care Provider + Eyad Regalado MD Unavailable Reason for Visit * Reason Comments Medication Refill Encounter Details Date Type Department Care Team (Late st Contact Info) Description 04/10/2022 Refill [facility] [address] [place] [address] Dami Santamaria MD [address] [place] [address] Medication Refill Social History Tobacco Use Types [...] 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 PEMENT MATCHER documented in this encounter Plan of Treatment Upcoming Encounters Date Type Department Care Team (Late st Contact Info) Description 02/19/2025 9:20 AM CDT Office Visit [facility] [address] [place] [address] Dami Santamaria MD [address] [place] [address] Discharge Disposition: Discharged to home or Selfcare 02/19/2025 9:30 AM CDT Clinical Support [facility] [address] [place] [address] Dami Santamaria MD [address] [place] [address] Discharge Disposition: Discharged to home or Selfcare 07/02/2025 2:30 PM ESCAPEMENT MATCHER Office Visit [facility] - Family Medicine [facility] [address] [place] [address] Kay Cabrales, [facility] [address] [place] [address] documented as of this encounter Visit Diagnoses Diagnosis Malignant neoplasm of lower-outer quadrant of right female breast (HCC) Malignant neoplasm of lower-outer quadrant of female breast documented in this encounter Additional Health Concerns Assessment Noted Time PHQ-9 Depression Total Score: 0 04/03/20 19 10:00 AM ESCAPEMENT MATCHER documented as of this encounter Care Teams Bottom Precipitator Operator Relationship Specialty Start Date End Date Kaitlynn Christianson MD PCP - General Family Medicine 03/07/15 05/09/22 Ana Theodore MD [address] [address] PCP - General Family Medicine 05/10/22 08/05/23 Kay Cabrales [facility] [address] [place] [address] PCP - General Physician Kier Drier 08/06/23 Dami Santamaria MD Consulting Physician Hematology 08/21/16 Erik Pathak MD Consulting Physician Radiation Oncology 09/22/16 Christiano Gregory MD [address] [address] Consulting Physician Endocrinology 01/10/22 Eyad Regalado MD [address] [address] Consulting Physician Colon and Rectal Surgery 04/02/24 documented as of this encounter
--- OUTSIDE RECORDS SUMMARY | 2025-01-02 09:49 | XMS_ITS | Encounter Summary ---
Author Organization [facility] Address [address] [place] [address] Phone Care Team Providers Care Artist And Repertoire Manager Name Role Phone Dami Santamaria MD Unavailable Erik Pathak MD Unavailable [phone] Christiano Gregory MD Unavailable Ana Theodore MD Primary Care Provider [phone] Kay Cabrales Primary Care Provider + Eyad Regalado MD Unavailable Reason for Visit * Reason Comments Medication Refill Encounter Details Date Type Department Care Team (Late st Contact Info) Description 10/04/2022 Refill [facility] - Primary Care - [address] [place] [address] [place] [address] [place] [address] Medication Refill Social History Tobacco Use Types [...] 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 No / Unsure 09/28/2022 2:16 PM CDT documented as of this encounter Miscellaneous Notes * Telephone Encounter - Marge Lucas RN - 10/04/2022 1:07 PM CDT Medication failed the protocol, provider to review and approve the medication order if appropriate. Requested Prescriptions Pending Prescriptions Disp Refills levothyroxine (SYNTHROID) 75 MCG Tablet [Pharmacy Med Name: Levothyroxine Sodium 75 MCG Oral Tablet] 90 Tablet 0 Sig: Take 1 tablet by mouth once daily Thyroid Hormones Protocol Passed - 10/04/2022 8:28 AM Passed - Visit with relevant provider in past 12 months or upcoming 90 days Recent Visits Date Type Provider Dept 06/26/22 Office Visit Ana Theodore MD [facility] 05/10/22 Office Visit Ana Theodore MD [facility] 12/26/21 Office Visit Kaitlynn Christianson MD [facility] Showing recent visits within past 365 days and meeting all other requirements Future Appointments No visits were found meeting these conditions. Showing future appointments within next 90 days and meeting all other requirements Passed - Normal TSH in past 12 months TSH Date Value Ref Range Status 06/21/2022 1.670 0.270 - 4.200 mIU/L Final amitriptyline (ELAVIL) 50 MG Tablet [Pharmacy Med Name: Amitriptyline HCl 50 MG Oral Tablet] 90 Tablet 0 Sig: Take 1 tablet by mouth nightly Not Delegated - Tricyclic Agents Protocol Failed - 10/04/2022 8:28 AM Failed - This refill cannot be delegated Passed - Visit with relevant provider in past 12 months or upcoming 90 days Recent Visits Date Type Provider Dept 06/26/22 Office Visit Ana Theodore MD [facility] 05/10/22 Office Visit Ana Theodore MD [facility] 12/26/21 Office Visit Kaitlynn Christianson MD [facility] Showing recent visits within past 365 days and meeting all other requirements Future Appointments No visits were found meeting these conditions. Showing future appointments within next 90 days and meeting all other requirements metoprolol Succinate (TOPROL-XL) 25 MG TABLET SR 24 HR [Pharmacy Med Name: Metoprolol Succinate ER 25 MG Oral Tablet Extended Release 24 Hour] 90 Tablet 0 Sig: Take 1 tablet by mouth once daily Beta-Blockers Protocol Passed - 10/04/2022 8:28 AM Passed - BP on record in the past year Clinician-entered: BP Readings from Last 3 Encounters: 08/10/22 148/90 06/26/22 120/74 05/10/22 122/86 Patient-entered: No data recorded Passed - Visit with relevant provider in past 12 months or upcoming 90 days Recent Visits Date Type Provider Dept 06/26/22 Office Visit Ana Theodore MD [facility] 05/10/22 Office Visit Ana Theodore MD [facility] 12/26/21 Office Visit Kaitlynn Christianson MD [facility] Showing recent visits within past 365 [...] Hmg CoA Reductase Inhibitors Protocol Passed - 10/04/2022 8:28 AM Passed - Visit with relevant provider in past 12 months or upcoming 90 days Recent Visits Date Type Provider Dept 06/26/22 Office Visit Ana Theodore MD [facility] 05/10/22 Office Visit Ana Theodore MD [facility] 12/26/21 Office Visit Kaitlynn Christianson MD [facility] Showing recent visits within past 365 days and meeting all other requirements Future Appointments No visits were found meeting these conditions. Showing future appointments within next 90 days and meeting all other requirements Passed - Lipid panel in past 12 months LDL Date Value Ref Range Status 06/21/2022 95 5 - 130 mg/dL Final HDL CHOLESTEROL Date Value Ref Range Status 06/21/2022 42.7 >40 mg/dL Final CHOLESTEROL Date Value Ref Range Status 06/21/2022 169 <=200 mg/dL Final TRIGLYCERIDES Date Value Ref Range Status 06/21/2022 156 (H) <150 mg/dL Final VLDL Date Value Ref Range Status 06/21/2022 31 5 - 55 mg/dL Final CHOL/HDL RATIO Date Value Ref Range Status 06/21/2022 4.0 0.0 - 4.4 Final NON-HDL CHOLESTEROL Date Value Ref Range Status 06/21/2022 126.3 <130 mg/dL Final documented in this encounter Plan of Treatment Upcoming Encounters Date Type Department Care Team (Late st Contact Info) Description 02/19/2025 9:20 AM CDT Office Visit [facility] [address] [place] [address] Dami Santamaria MD [address] [place] [address] Discharge Disposition: Discharged to home or Selfcare 02/19/2025 9:30 AM CDT Clinical Support [facility] [place] [facility] [address] [place] [address] Dami Santamaria MD [address] [place] [address] Discharge Disposition: Discharged to home or Selfcare 07/02/2025 2:30 PM DRILL PRESS OPERATOR NUMERICAL CONTROL Office Visit [facility] - Family [facility] [address] [place] [address] Kay Cabrales, [facility] [address] [place] [address] documented as of this encounter Visit Diagnoses Diagnosis Acquired hypothyroidism Unspecified hypothyroidism Fibromyalgia Mylagia and myositis, unspecified Essential hypertension Unspecified essential hypertension documented in this encounter Additional Health Concerns Assessment Noted Time PHQ-9 Depression Total Score: 0 05/10/20 1:00 PM DRILL PRESS OPERATOR NUMERICAL CONTROL documented as of this encounter Care Teams Artist And Repertoire Manager Relationship Specialty Start Date End Date Ana Theodore MD [address] [address] PCP - General Family Medicine 05/10/22 08/05/23 Kay Cabrales, [facility] [address] [place] [address] PCP - General Physician Track Laying Equipment Operator 08/06/23 Dami Santamaria MD Consulting Physician Hematology 08/21/16 Erik Pathak MD Consulting Physician Radiation Oncology 09/22/16 Christiano Gregory MD [address] [address] Consulting Physician Endocrinology 01/10/22 Eyad Regalado MD [address] [address] Consulting Physician Colon and Rectal Surgery 04/02/24 documented as of this encounter
--- OUTSIDE RECORDS SUMMARY | 2025-01-02 09:50 | XMS_ITS | Encounter Summary ---
Author Organization [facility] Address [address] [place] [address] Phone Care Team Providers Care Design Center Consultant Name Role Phone Kaitlynn Christianson MD Primary Care Provider Dami Santamaria MD Unavailable [phone] Erik Pathak MD Unavailable [phone] Ct[facility] Unavailable Sharon vailable Christiano Gregory MD Unavailable Ana Theodore MD Primary Care Provider Kay Cabrales Primary Care Provider + Eyad Regalado MD Unavailable Reason for Visit * Reason Comments Medication Refill Encounter Details Date Type Department Care Team (Late st Contact Info) Description 10/26/[address] 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 No / Unsure 10/26/2020 11:36 AM CDT documented as of this encounter Miscellaneous Notes * Telephone Encounter - Lesli Ruiz RN - 10/26/2020 11:12 AM CDT Refilled Letrozole documented in this encounter Plan of Treatment Upcoming Encounters Date Type Department Care Team (Late st Contact Info) Description 02/19/2025 9:20 AM CDT Office Visit [facility] Oncology Services [address] [place] [address] Dami Santamaria MD [address] [place] [address] Discharge Disposition: Discharged to home or Selfcare 02/19/2025 9:30 AM CDT Clinical Support [facility] Oncology Services [address] [place] [address] Dami Santamaria MD [address] [place] [address] Discharge Disposition: Discharged to home or Selfcare 07/02/2025 2:30 PM SCHOOL AIDE Office Visit [facility] Medical Group - Family Medicine - [place] [address] [place] [address] Kay Cabrales, PAC [address] [place] [address] documented as of this encounter Visit Diagnoses Diagnosis Malignant neoplasm of lower-outer quadrant of right female breast (HCC) Malignant neoplasm of lower-outer quadrant of female breast documented in this encounter Additional Health Concerns Assessment Noted Time PHQ-9 Depression Total Score: 0 04/03/20 19 10:00 AM SCHOOL AIDE documented as of this encounter Care Teams Design Center Consultant Relationship Specialty Start Date End Date Kaitylnn Christianson MD PCP - General Family Medicine 03/07/15 05/09/22 Ana Theodore MD [address] [phone] PCP - General Family Medicine 05/10/22 08/05/23 Kay Cabrales, VALENTIN [address] [place] [address] PCP - General Physician Residential Insurance Inspector 08/06/23 Dami Santamaria MD Consulting Physician Hematology 08/21/16 Erik Pathak MD Consulting Physician Radiation Oncology 09/22/16 Ct[facility] [place] [employer] [facility] 12/13/19 12/15/20 Christiano Gregory MD [address] [phone] Consulting Physician Endocrinology 01/10/22 Eyad Regalado MD [address] [address] Consulting Physician Colon and Rectal Surgery 04/02/24 documented as of this encounter
--- OUTSIDE RECORDS SUMMARY | 2025-01-02 09:50 | XMS_ITS | Encounter Summary ---
Author Organization [facility] Address [address] [place] [address] Phone Care Team Providers Care Nylon Hot Wire Cutter Name Role Phone Kaitlynn Christianson MD Primary Care Provider [phone] Dami Santamaria MD Unavailable [phone] Erik Pathak MD Unavailable [phone] Christiano Gregory MD Unavailable Ana Theodore MD Primary Care Provider Kay Cabrales Primary Care Provider + Eyad Regalado MD Unavailable Reason for Visit * Reason Comments Medication Refill Encounter Details Date Type Department Care Team (Late st Contact Info) Description [facility]/18[facility] [address] [place] [address] Kaitlynn Christianson MD [address] [place] [address] Medication Refill Social History Tobacco [...] 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 Requested Prescriptions Pending Prescriptions Disp Refills amitriptyline (ELAVIL) 50 MG Tablet [Pharmacy Med Name: Amitriptyline HCl 50 MG Oral Tablet] 90 Tablet 0 Sig: Take 1 tablet by mouth nightly healthfinch Not Delegated - Psychiatry: Antidepressants - Heterocyclics (TCAs) Failed - 04/18/2021 10:20 AM Failed - This refill cannot be delegated Passed - Valid encounter within last 12 months Past Office Visits Recent Outpatient Visits 2 months ago Acute pain of left knee [facility] Kaitlynn Christianson MD 4 months ago Essential hypertension [facility] Kaitlynn Christianson MD 10 months ago Essential hypertension [facility] Kaitlynn Christianson MD 1 year ago Essential hypertension [facility] Kaitlynn Everett MD 2 years ago Essential hypertension [facility] Kaitlynn Christianson MD Upcoming Appointments Future Appointments In 1 month Andi [facility] In 2 months Dami Santamaria MD [facility] Oncology Services, [facility] In 2 months [facility] On[facility] Services, [facility] In 2 months Kaitlynn Christianson MD [facility] In 8 Erik Fernandez MD [facility] RISK CONTROL CONSULTANT - Recent and Past Visits Recent Visits Date Type Provider Dept 02/08/21 Office Visit Kaitlynn Christianson MD [facility] 12/17/20 Office Visit Kaitlynn Christianson MD [facility] 06/17/20 Telemedicine Kaitlynn Christianson MD [facility] Showing recent visits within past 460 days with a meds authorizing provider and meeting all other requirements Future Appointments Date Type Provider Dept 06/24/21 Appointment Kaitlynn Christianson MD [facility] Showing future appointments within next 90 days with a meds authorizing provider and meeting all other requirements Passed - Last BP in normal range BP Readings from Last 1 Encounters: 02/08/21 122/60 metoprolol Succinate (TOPROL-XL) 25 MG TABLET SR 24 HR [Pharmacy Med Name: Metoprolol Succinate ER 25 MG Oral Tablet Extended Release 24 Hour] 90 Tablet 0 Sig: Take 1 tablet by mouth once daily Beta-Blockers Protocol Passed - 04/18/2021 10:20 AM Passed - BP on record in the past year Clinician-entered: BP Readings from Last 3 Encounters: 02/08/21 122/60 12/17/20 128/80 12/16/20 139/69 Patient-entered: No data recorded Passed - Visit with relevant provider in past 12 months or upcoming 90 days Recent Visits Date Type Provider Dept 02/08/21 Office Visit Kaitlynn Christianson MD [facility] 12/17/20 Office Visit Kaitlynn Christianson MD [facility] 06/17/20 Telemedicine Kaitlynn Christianson MD [facility] Showing recent visits within past 365 days and meeting all other requirements Future Appointments Date Type Provider Dept 06/15/21 Appointment David Escamilla [facility] 06/24/21 Appointment Kaitlynn Christianson MD [facility] Showing future appointments within next 90 days and meeting all other requirements lovastatin (MEVACOR) 20 MG Tablet [Pharmacy Med Name: Lovastatin 20 MG Oral Tablet] 90 Tablet 0 Sig: TAKE 1 TABLET BY MOUTH ONCE DAILY IN THE EVENING Hmg CoA Reductase Inhibitors Protocol Passed - 04/18/2021 10:20 AM Passed - Visit with relevant provider in past 12 months or upcoming 90 days Recent Visits Date Type Provider Dept 02/08/21 Office Visit Kaitlynn Christianson MD [facility] 12/17/20 Office Visit Kaitlynn Christianson MD [facility] 06/17/20 Telemedicine Kaitlynn Christianson MD [facility] Showing recent visits within past 365 days and meeting all other requirements Future Appointments Date Type Provider Dept 06/15/21 Appointment Lab, [place] [facility] 06/24/21 Appointment Kaitlynn Christianson MD [facility] Showing future appointments within next 90 [...] Range Status 12/10/2020 118.4 <130 mg/dL Final Euthyrox 75 MCG Tablet [Pharmacy Med Name: Euthyrox 75 MCG Oral Tablet] 90 Tablet 0 Sig: Take 1 tablet by mouth once daily Thyroid Hormones Protocol Passed - 04/18/2021 10:20 AM Passed - Visit with relevant provider in past 12 months or upcoming 90 days Recent Visits Date Type Provider Dept 02/08/21 Office Visit Kaitlynn Christianson MD [facility] 12/17/20 Office Visit Kaitlynn Christianson MD [facility] 06/17/20 Telemedicine Kaitlynn Christianson MD [facility] Showing recent visits within past 365 days and meeting all other requirements Future Appointments Date Type Provider Dept 06/15/21 Appointment Andi David [facility] [address] 06/24/21 Appointment Kaitlynn Christianson MD [facility] Showing future appointments within next 90 days and meeting all other requirements Passed - Normal TSH in past 12 months TSH Date Value Ref Range Status 12/10/2020 1.520 0.270 - 4.200 mIU/L Final MANAGER documented in this encounter Plan of Treatment Upcoming Encounters Date Type Department Care Team (Late st Contact Info) Description 02/19/2025 9:20 AM CDT Office Visit [facility] Oncology Services [address] [place] [address] Dami Santamaria MD [address] [place] [address] Discharge Disposition: Discharged to home or Selfcare 02/19/2025 9:30 AM CDT Clinical Support [facility] Oncology Services [address] [place] [address] Dami Santamaria MD [address] [place] [address] Discharge Disposition: Discharged to home or Selfcare 07/02/2025 2:30 PM QA MANAGER Office Visit [facility] Medical Group - Family Medicine [facility] [address] [place] [address] Kay Cabrales, VALENTIN [address] [place] [address] documented as of this encounter Visit Diagnoses Diagnosis Fibromyalgia Mylagia and myositis, unspecified Essential hypertension Unspecified essential hypertension Acquired hypothyroidism Unspecified hypothyroidism documented in this encounter Additional Health Concerns Assessment Noted Time PHQ-9 Depression Total Score: 0 04/03/20 19 10:00 AM QA MANAGER documented as of this encounter Care Teams Nylon Hot Wire Cutter Relationship Specialty Start Date End Date Kaitlynn Christianson MD PCP - General Family Medicine 03/07/15 05/09/22 Ana Theodore MD [address] [address] PCP - General Family Medicine 05/10/22 08/05/23 Kay Cabrales PAC [address] [place] [address] PCP - General Physician Tax Examining Technician 08/06/23 Dami Santamaria MD Consulting Physician Hematology 08/21/16 Erik Pathak MD Consulting Physician Radiation Oncology 09/22/16 Christiano Gregory MD [address] [phone] Consulting Physician Endocrinology 01/10/22 Eyad Regalado MD [address] [address] Consulting Physician Colon and Rectal Surgery 04/02/24 documented as of this encounter
--- OUTSIDE RECORDS SUMMARY | 2025-01-02 09:50 | XMS_ITS | Encounter Summary ---
Author Organization [facility] Address [address] [address] Phone Care Team Providers Care Education Faculty Member Name Role Phone Dami Rodriguez MD Unavailable [phone] Erik Pathak MD Unavailable [phone] Christiano Gregory MD Unavailable Ana Theodore MD Primary Care Provider Kay Cabrales Primary Care Provider + Eyad Regalado MD Unavailable Reason for Visit * Reason Comments Medication Refill Encounter Details Date Type Department Care Team (Late st Contact Info) Description 07/10/2022 Refill [facility] POB Medical Oncology [address] [place] [address] Dami Rodriguez MD [address] [place], [place] [id number] Medication Refill Social History Tobacco Use Types [...] 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 No / Unsure 06/25/2022 7:21 PM WATCHER [employer] documented as of this encounter Miscellaneous Notes * Telephone Encounter - Nora Miles RN - 07/10/2022 9:01 AM CST Refilled letrozole per dr rodriguez note 02/16/22 HER [employer] documented in this encounter Plan of Treatment Upcoming Encounters Date Type Department Care Team (Late st Contact Info) Description 02/19/2025 9:20 AM CDT Office Visit [facility] Oncology Services [address] [place] [phone] Dami Rodriguez MD [address] [place] [address] Discharge Disposition: Discharged to home or Selfcare 02/19/2025 9:30 AM CDT Clinical Support [facility] [place] Oncology Services [address] [place] [address] Dami Rodriguez MD [address] [place] [address] Discharge Disposition: Discharged to home or Selfcare 07/02/2025 2:30 PM WATCHER [employer] Office Visit [facility] Group - Family [facility] [address] [place] [address] Kay Cabrales, PAC [address] [place] [address] documented as of this encounter Visit Diagnoses Diagnosis Malignant neoplasm of lower-outer quadrant of right female breast (HCC) Malignant neoplasm of lower-outer quadrant of female breast documented in this encounter Additional Health Concerns Assessment Noted Time PHQ-9 Depression Total Score: 0 05/10/20 1:00 PM WATCHER [employer] documented as of this encounter Care Teams Education Faculty Member Relationship Specialty Start Date End Date Ana Theodore MD [address] [address] PCP - General Family Medicine 05/10/22 08/05/23 Kay Cabrales PAC [address] [place] [address] PCP - General Physician Construction Controller 08/06/23 Dami Rodriguez MD Consulting Physician Hematology 08/21/16 Erik Pathak MD Consulting Physician Radiation Oncology 09/22/16 Christiano Gregory MD [address] [address] Consulting Physician Endocrinology 01/10/22 Eyad Regalado MD [address] [address] Consulting Physician Colon and Rectal Surgery 04/02/24 documented as of this encounter
--- OUTSIDE RECORDS SUMMARY | 2025-01-02 09:50 | XMS_ITS | Encounter Summary ---
Author Organization [facility] Address [address] [place] [address] Phone Care Team Providers Care Mechanical Research Engineer Name Role Phone Dami Santamaria MD Unavailable [phone] Erik Pathak MD Unavailable [phone] Christiano Gregory MD Unavailable Ana Theodore MD Primary Care Provider Kay Cabrales Primary Care Provider + Eyad Regalado MD Unavailable Reason for Visit * Reason Comments Medication Refill Encounter Details Date Type Department Care Team (Late st Contact Info) Description 07/10/2022 Refill [facility] Medical Group - Primary Care - [place] [address] [place] [address] Kaitlynn Christianson MD [address] [place] [address] Medication Refill Social History Tobacco [...] 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 No / Unsure 06/25/2022 7:21 PM AQUARIST documented as of this encounter Miscellaneous Notes * Telephone Encounter - Virgen Beck RN - 07/10/2022 9:16 AM CST Per nursing clinical judgement, provider to review and approve the medication(s) order(s) if appropriate. Requested Prescriptions Pending Prescriptions Disp Refills metoprolol Succinate (TOPROL-XL) 25 MG TABLET SR 24 HR [Pharmacy Med Name: Metoprolol Succinate ER 25 MG Oral Tablet Extended Release 24 Hour] 90 Tablet 0 Sig: Take 1 tablet by mouth once daily Beta-Blockers Protocol Passed - 07/10/2022 1:20 AM Passed - BP on record in the past year Clinician-entered: BP Readings from Last 3 Encounters: 06/26/22 120/74 05/10/22 122/86 03/09/22 102/64 Patient-entered: No data recorded Passed - Visit with relevant provider in past 12 months or upcoming 90 days Recent Visits Date Type Provider Dept 06/26/22 Office Visit Ana Theodore MD [facility] 05/10/22 Office Visit Ana Theodore MD [facility] 12/26/21 Office Visit Kaitlynn Christianson MD [facility] Showing recent visits within past 365 days and meeting all other requirements Future Appointments No visits were found meeting these conditions. Showing future appointments within next 90 days and meeting all other requirements levothyroxine (SYNTHROID) 75 MCG Tablet [Pharmacy Med Name: Levothyroxine Sodium 75 MCG Oral Tablet] 90 Tablet 0 Sig: Take 1 tablet by mouth once daily Thyroid Hormones Protocol Passed - 07/10/2022 1:20 AM Passed - Visit with relevant provider in past 12 months or upcoming 90 days Recent Visits Date Type Provider Dept 06/26/22 Office Visit Ana Theodore MD [facility] 05/10/22 Office Visit Ana Theodore MD [facility] 12/26/21 Office Visit Kaitlynn Christianson MD [facility] Showing recent visits within past 365 [...] Delegated - Tricyclic Agents Protocol Failed - 07/10/2022 1:20 AM Failed - This refill cannot be delegated Passed - Visit with relevant provider in past 12 months or upcoming 90 days Recent Visits Date Type Provider Dept 06/26/22 Office Visit Ana Theodore MD [facility] 05/10/22 Office Visit Ana Theodore MD [facility] 12/26/21 Office Visit Kaitlynn Christianson MD [facility] Showing recent visits within past 365 [...] Hmg CoA Reductase Inhibitors Protocol Passed - 07/10/2022 1:20 AM Passed - Visit with relevant provider in past 12 months or upcoming 90 days Recent Visits Date Type Provider Dept 06/26/22 Office Visit Ana Theodore MD [facility] 05/10/22 Office Visit Ana Theodore MD [facility] 12/26/21 Office Visit Kaitlynn Christianson MD [facility] Showing recent visits within past 365 [...] Range Status 06/21/2022 126.3 <130 mg/dL Final RIST documented in this encounter Plan of Treatment Upcoming Encounters Date Type Department Care Team (Late st Contact Info) Description 02/19/2025 9:20 AM CDT Office Visit [facility] Oncology Services [address] [place] [address] Dami Santamaria MD [address] [place] [address] Discharge Disposition: Discharged to home or Selfcare 02/19/2025 9:30 AM CDT Clinical Support [facility] Oncology Services [address] [place] [address] Dami Santamaria MD [address] [place] [address] Discharge Disposition: Discharged to home or Selfcare 07/02/2025 2:30 PM AQUARIST Office Visit [facility] Medical [facility] - Family [facility] [address] [place] [address] Kay Cabrales, PAC [address] [place] [address] documented as of this encounter Visit Diagnoses Diagnosis Essential hypertension Unspecified essential hypertension Acquired hypothyroidism Unspecified hypothyroidism Fibromyalgia Mylagia and myositis, unspecified documented in this encounter Additional Health Concerns Assessment Noted Time PHQ-9 Depression Total Score: 0 05/10/20 1:00 PM AQUARIST documented as of this encounter Care Teams Mechanical Research Engineer Relationship Specialty Start Date End Date Ana Theodore MD [address] [address] PCP - General Family Medicine 05/10/22 08/05/23 Kay Carbales, PAC [address] [place] [address] PCP - General Physician Banking Attorney 08/06/23 Dami Santamaria MD Consulting Physician Hematology 08/21/16 Erik Pathak MD Consulting Physician Radiation Oncology 09/22/16 Christiano Gregory MD [address] [address] Consulting Physician Endocrinology 01/10/22 Eyad Regalado MD [address] [address] Consulting Physician Colon and Rectal Surgery 04/02/24 documented as of this encounter
--- OUTSIDE RECORDS SUMMARY | 2025-01-02 09:50 | XMS_ITS | Encounter Summary ---
Author Organization [facility] Address [address] [place] [address] Phone Care Team Providers Care Radial Saw Operator Name Role Phone Kaitlynn Christianson MD Primary Care Provider [phone] Dami Santamaria MD Unavailable [phone] Erik Pathak MD Unavailable [phone] Christiano Gregory MD Unavailable Ana Theodore MD Primary Care Provider Kay Cabrales Primary Care Provider + Eyad Regalado MD Unavailable Reason for Visit * Reason Comments Medication Refill Encounter Details Date Type Department Care Team (Late st Contact Info) Description 10/10/2021 Refill [facility] - Primary Care - [place] [place] [address] Kaitlynn Christianson MD [address] [place] [address] Medication Refill Social History Tobacco [...] 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 Requested Prescriptions Pending Prescriptions Disp Refills amitriptyline (ELAVIL) 50 MG Tablet [Pharmacy Med Name: Amitriptyline HCl 50 MG Oral Tablet] 90 Tablet 0 Sig: Take 1 tablet by mouth nightly Not Delegated - Tricyclic Agents Protocol Failed - 10/10/2021 4:52 PM Failed - This refill cannot be delegated Passed - Visit with relevant provider in past 12 months or upcoming 90 days Recent Visits Date Type Provider Dept 06/28/21 Office Visit [facility] 02/08/21 Office Visit [facility] 12/17/20 Office Visit Kaitlynn Christianson [facility] Showing recent visits within past 365 days and meeting all other requirements Future Appointments Date Type Provider Dept 12/19/21 Appointment Andi [facility] 12/26/21 Appointment Kaitlynn Christianson [facility] Showing future appointments within next 90 days and meeting all other requirements Signed Prescriptions Disp Refills lovastatin (MEVACOR) 20 MG Tablet 90 Tablet 0 Sig: TAKE 1 TABLET BY MOUTH ONCE DAILY IN THE EVENING Hmg CoA Reductase Inhibitors Protocol Passed - 10/10/2021 4:52 PM Passed - Visit with relevant provider in past 12 months or upcoming 90 days Recent Visits Date Type Provider Dept 06/28/21 Office Visit K[facility]lynn Christians[facility] [address] 02/08/21 Office Visit Kaitlynn Christianson MD [facility] 12/17/20 Office Visit Kaitlynn Christianson MD [facility] Showing recent visits within past 365 days and meeting all other requirements Future Appointments Date Type Provider Dept 12/19/21 Appointment Lab[facility] 12/26/21 Appointment Kaitlynn Christianson MD [facility] Showing future appointments within next 90 days and meeting all other requirements Passed - Lipid panel in past 12 months LDL Date Value Ref Range Status 06/15/2021 100 5 - 130 mg/dL Final HDL CHOLESTEROL Date Value Ref Range Status 06/15/2021 40.5 >40 mg/dL Final CHOLESTEROL Date Value Ref Range Status 06/15/2021 171 <=200 mg/dL Final TRIGLYCERIDES Date Value Ref Range Status 06/15/2021 152 (H) <150 mg/dL Final VLDL Date Value Ref Range Status 06/15/2021 30 5 - 55 mg/dL Final CHOL/HDL RATIO Date Value Ref Range Status 06/15/2021 4.2 0.0 - 4.4 Final NON-HDL CHOLESTEROL Date Value Ref Range Status 06/15/2021 130.5 (H) <130 mg/dL Final Euthyrox 75 MCG Tablet 90 Tablet 0 Sig: Take 1 tablet by mouth once daily Thyroid Hormones Protocol Passed - 10/10/2021 4:52 PM Passed - Visit with relevant provider in past 12 months or upcoming 90 days Recent Visits Date Type Provider Dept 06/28/21 Office Visit K[facility]lynn Christians[facility] 02/08/21 Office Visit Kaitlynn Christianson MD [facility] 12/17/20 Office Visit Kaitlynn Christianson MD [facility] Showing recent visits within past 365 days and meeting all other requirements Future Appointments Date Type Provider Dept 12/19/21 Appointment [facility] 12/26/21 Appointment Kaitlynn Christianson MD [facility] Showing future appointments within next 90 days and meeting all other requirements Passed - Normal TSH in past 12 months TSH Date Value Ref Range Status 06/15/2021 3.070 0.270 - 4.200 mIU/L Final metoprolol Succinate (TOPROL-XL) 25 MG TABLET SR 24 HR 90 Tablet 0 Sig: Take 1 tablet by mouth once daily Beta-Blockers Protocol Passed - 10/10/2021 4:52 PM Passed - BP on record in the past year Clinician-entered: BP Readings from Last 3 Encounters: 07/05/21 147/75 06/28/21 120/62 02/08/21 122/60 Patient-entered: No data recorded Passed - Visit with relevant provider in past 12 months or upcoming 90 days Recent Visits Date Type Provider Dept 06/28/21 Office Visit Kaitlynn Christianson MD [address] 02/08/21 Office Visit Kaitlynn Christianson MD [facility] 12/17/20 Office Visit [facility] Showing recent visits within past 365 days and meeting all other requirements Future Appointments Date Type Provider Dept 12/19/[address] [facility] 12/26/21 Appointment K[facility]lynn Christians[facility] Showing future appointments within next 90 days and meeting all other requirements documented in this encounter Plan of Treatment Upcoming Encounters Date Type Department Care Team (Late st Contact Info) Description 02/19/2025 9:20 AM CDT Office Visit [facility] On[facility] Services [address] [place] [phone] Dami Santamaria MD [address] [place] [address] Discharge Disposition: Discharged to home or Selfcare 02/19/2025 9:30 AM CDT Clinical Support [facility] [address] [place] [id number] Dami Santamaria MD [address] [place] [address] Discharge Disposition: Discharged to home or Selfcare 07/02/2025 2:30 PM HAND STRIPER Office Visit [facility] [place] [facility] [address] [place] [address] Kay Cabrales, [address] [place] [address] documented as of this encounter Visit Diagnoses Diagnosis Fibromyalgia Mylagia and myositis, unspecified Acquired hypothyroidism Unspecified hypothyroidism Essential hypertension Unspecified essential hypertension documented in this encounter Additional Health Concerns Assessment Noted Time PHQ-9 Depression Total Score: 0 04/03/20 19 10:00 AM HAND STRIPER documented as of this encounter Care Teams Radial Saw Operator Relationship Specialty Start Date End Date Kaitlynn Christianson MD PCP - General Family Medicine 03/07/15 05/09/22 Ana Theodore MD [address] [address] PCP - General Family Medicine 05/10/22 08/05/23 Kay Cabrales PAC [address] [place] [address] PCP - General Physician Grout Machine Tender 08/06/23 Dami Santamaria MD Consulting Physician Hematology 08/21/16 Erik Pathak MD Consulting Physician Radiation Oncology 09/22/16 Christiano Gregory MD [address] [address] Consulting Physician Endocrinology 01/10/22 Eyad Regalado MD [address] [place] [address] Consulting Physician Colon and Rectal Surgery 04/02/24 documented as of this encounter
--- OUTSIDE RECORDS SUMMARY | 2025-01-02 09:50 | XMS_ITS | Encounter Summary ---
Author Organization [facility] Address [address] [place] [address] Phone Care Team Providers Care Tack Puller Name Role Phone Kaitlynn Christianson MD Primary Care Provider Dami Santamaria MD Unavailable [phone] Erik Pathak MD Unavailable [phone] Christiano Gregory MD Unavailable Ana Theodore MD Primary Care Provider Kay Cabrales Primary Care Provider + Eyad Regalado MD Unavailable Reason for Visit * Reason Comments Medication Refill Encounter Details Date Type Department Care Team (Late st Contact Info) Description 01/26/2021 Refill 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 Not on file Not on file documented as of this encounter Miscellaneous Notes * Telephone Encounter - Rocio Davis RN - 01/27/2021 9:31 AM CDT Refilled Letrozole documented in this encounter Plan of Treatment Upcoming Encounters Date Type Department Care Team (Late st Contact Info) Description 02/19/2025 9:20 AM CDT Office Visit [facility] Oncology Services [address] [place] [address] Dami Santamaria MD [address] [place] [address] Discharge Disposition: Discharged to home or Selfcare 02/19/2025 9:30 AM CDT Clinical Support [facility] Oncology Services [address] [place] [address] Dami Santamaria MD [address] [place] [address] Discharge Disposition: Discharged to home or Selfcare 07/02/2025 2:30 PM CLOTHING SALES ASSISTANT Office Visit [facility] - Family Medicine - [place] [address] [place] [address] Kay Cabrales, [facility] [address] [place] [address] documented as of this encounter Visit Diagnoses Diagnosis Malignant neoplasm of lower-outer quadrant of right female breast (HCC) Malignant neoplasm of lower-outer quadrant of female breast documented in this encounter Additional Health Concerns Assessment Noted Time PHQ-9 Depression Total Score: 0 04/03/20 19 10:00 AM CLOTHING SALES ASSISTANT documented as of this encounter Care Teams Tack Puller Relationship Specialty Start Date End Date Kaitlynn Christianson MD PCP - General Family Medicine 03/07/15 05/09/22 Ana Theodore MD [address] [phone] PCP - General Family Medicine 05/10/22 08/05/23 Kay Cabrales PAC [address] [place] [address] PCP - General Physician E Commerce Strategist 08/06/23 Dami Santamaria MD Consulting Physician Hematology 08/21/16 Erik Pathak MD Consulting Physician Radiation Oncology 09/22/16 Christiano Gregory MD [address] [address] Consulting Physician Endocrinology 01/10/22 Eyad Regalado MD [address] [address] Consulting Physician Colon and Rectal Surgery 04/02/24 documented as of this encounter
--- OUTSIDE RECORDS SUMMARY | 2025-01-02 09:50 | XMS_ITS | Clinical Summary ---
Author Organization [facility] [address] Address [address] [place] [address] Phone Care Team Providers Care Bark Skinner Name Role Phone Tess Phillips MD Unavailable [phone] Kaitlynn Christianson MD Primary Care Provider [phone] Allergies Active Allergy Reactions Criticality Noted Date Comments Atorvastatin Muscle pain Medium Hydrocodone Hives Medium 03/15/2016 Oxycodone Hives Medium Medications lovastatin (MEVACOR) 20 mg tablet 11/20/2016 Active amitriptyline (ELAVIL) 25 mg tablet Take 25 mg by mouth. 05/09/2016 Active calcium carbonate (OS-BABAK) 1,500 mg (600 mg of elemental calcium) tablet Take 600 mg by mouth. 11/07/2016 Active calcium citrate-vitamin D3 200 mg calcium -250 unit tablet Take by mouth. Active cyanocobalamin (Vitamin B-12) 100 mcg tabletIndicatio ns:Prevention of Vitamin B12 Deficiency Take by mouth. Active letrozole (FEMARA) 2.5 mg chemo tablet 10/21/2016 Active levothyroxine (SYNTHROID, LEVOTHROID) 88 mcg tablet Take by mouth. 09/15/2016 Active levothyroxine (SYNTHROID, LEVOTHROID) 100 mcg tablet 08/16/2016 Active metoprolol XL (TOPROL-XL) 50 mg 24 hr tablet 11/20/2016 Act katya denosumab (PROLIA) 60 mg/mL syringe Inject under the skin Active famotidine (PEPCID) 40 mg tabletIndicatio ns:Laryngophary ngeal reflux (LPR) Take 1 tablet (40 mg total) by mouth nightly 90 tablet 3 03/08/2021 Active Active Problems Problem Noted Date Diagnosed Date Laryngopharyngeal reflux (LPR) 03/08/2021 Assessment & Plan (03/08/2021 10:39 AM CDT): Pepcid 40 mg at bedtime for at least 8 weeks MRI Brain - call with results LPR discussed and Handout provided 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 Assessment & Plan (03/08/2021 10:39 AM CDT): MRI Brain - call with results Benign paroxysmal vertigo 03/08/2021 Assessment & Plan (03/08/2021 10:40 AM CDT): Resolved currently Anxiety 11/23/2016 Fibromyalgia 11/23/2016 Hyperlipidemia 11/23/2016 Hypertension 11/23/2016 Hypoactive thyroid 11/23/2016 Borderline diabetes mellitus 11/23/2016 Unspecified vitamin D deficiency 11/23/2016 Acute radiodermatitis 10/30/2016 Radiation disease 10/30/2016 Osteopenia 10/19/2016 Encounter for antineoplastic radiation therapy 0 10/17/2016 Peripheral neuropathy due to chemotherapy 2016 Malignant neoplasm of lower-outer quadrant of fe male breast 03/14/2016 Surgical History Surgery Date Site/Laterality Comments CHOLECYSTECTOMY 05/21/2001 - 05/20/2002 ROTATOR CUFF REPAIR 05/21/2011 - 05/20/2012 Left BREAST LUMPECTOMY 05/21/2016 - 05/20/2017 breast cancer TOTAL ABDOMINAL HYSTERECTOMY 05/21/1981 - 05/20/1982 with appendectomy, for fibroids BILATERAL SALPINGOOPHORECTOMY 05/21/1993 - 05/20/1994 laparoscopic, for endometriosis TONSILLECTOMY 05/21/1970 - 05/20/1971 Medical History Medical History Date Comments Hypertension Fibromyalgia Hypothyroidism History of kidney stones Breast cancer, female (HCC) Family History Medical History Relation Name Comments Breast cancer Cousin Heart attack Father COD at age 77 Heart failure Father Cancer Maternal Grandfather gallbla dder cancer Heart attack Maternal Grandfather COD Pancreatic cancer Maternal Grandmother Alzheimer's disease Mother COD at a ge 87 Diabetes Mother Heart attack Mother's Brother Hypertension Mother's Sister Stroke Mother's Sister Relation Name Status Comments Cousin Father Maternal Grandfather Maternal Grandmother Mother Mother's Brother Mother's Sister Social History Tobacco Use Types Packs/Day Years Used Date Smoking Tobacco: Never Smokeless Tobacco: Never Tobacco Cessation:Counseling Given: Yes Alcohol Use Standard Drinks/Week Comments No 0 (1 standard drink = 0.6 oz pur e alcohol) Comments No Sex and Gender Information Value Date Recorded Sex Assigned at Not on file Legal Sex Female 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 Gender Identity Not on file Sexual Orientation Not on file Occupation Industry Job Start Date Job End Date retired Not on file Not on file Not on file Obstetrics History Para Term AB IAB SAB Ectopic Multiple Livin g Live Births 1 1 1 0 0 0 0 0 0 1 1 Date Outcome GA Total Labor Labor/2nd/3rd Weight Sex Type Anes PTL Caity A1 A5 Name Clin Term Last Filed Vital Signs Vital Sign Reading Time Taken Comments Blood Pressure 132/72 03/08/2021 10:04 AM CDT Pulse 88 03/08/2021 10:04 AM CDT Temperature 36 C (96.8 F) 03/08/2021 10:04 AM CDT Respiratory Rate 16 11/23/2016 2:28 PM CDT Oxygen Saturation - - Inhaled Oxygen Concentration - - Weight 69.4 kg (153 lb) 03/08/2021 10:04 AM CDT Height 154.9 cm (5' 1) 03/08/2021 10:04 AM CDT Body Mass Index 28.91 03/08/2021 10:04 AM CDT Plan of Treatment Not on file Insurance [facility] [employer] INSURANCE [employer] MEDICARE MEDICARE [employer] Care Teams Bark Skinner Relationship Specialty Start Date End Date Kaitlynn Christianson MD [address] [place] [address] PCP - General Family Practice 12/27/20 Tess Phillips MD [address] [place] [address] Obstetrics and Gynecology 11/17/16
--- OUTSIDE RECORDS SUMMARY | 2025-01-02 09:50 | XMS_ITS | Encounter Summary ---
Author Organization [facility] Address [address] [place] [address] Phone Care Team Providers Care Recreational Facilities Motel Manager Name Role Phone Dami Santamaria MD Unavailable [phone] Erik Pathak MD Unavailable [phone] Christiano Gregory MD Unavailable Ana Theodore MD Primary Care Provider [phone] Kay Cabrales Primary Care Provider + Eyad Regalado MD Unavailable Reason for Visit * Reason Comments Medication Refill Encounter Details Date Type Department Care Team (Late st Contact Info) Description 01/16/2023 Refill [facility] - Primary Care - [place] [place] [address] [place] [address] [place] [address] Medication Refill Social History Tobacco [...] 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 Requested Prescriptions Pending Prescriptions Disp Refills levothyroxine (SYNTHROID) 75 MCG Tablet [Pharmacy Med Name: Levothyroxine Sodium 75 MCG Oral Tablet] 90 Tablet 0 Sig: Take 1 tablet by mouth once daily Thyroid Hormones Protocol Passed - 01/16/2023 7:05 PM Passed - Visit with relevant provider in past 12 months or upcoming 90 days Recent Visits Date Type Provider Dept 06/26/22 Office Visit Ana Theodore MD [facility] 05/10/22 Office Visit Ana Theodore MD [facility] Showing recent visits within past 365 days and meeting all other requirements Future Appointments Date Type Provider Dept 02/08/23 Appointment Ana Theodore MD [facility] Showing future appointments within next 90 days and meeting all other requirements Passed - Normal TSH in past 12 months TSH Date Value Ref Range Status 06/21/2022 1.670 0.270 - 4.200 mIU/L Final lovastatin (MEVACOR) 20 MG Tablet [Pharmacy Med Name: Lovastatin 20 MG Oral Tablet] 90 Tablet 0 Sig: TAKE 1 TABLET BY MOUTH ONCE DAILY IN THE EVENING Hmg CoA Reductase Inhibitors Protocol Passed - 01/16/2023 7:05 PM Passed - Visit with relevant provider in past 12 months or upcoming 90 days Recent Visits Date Type Provider Dept 06/26/22 Office Visit Ana Theodore MD [facility] 05/10/22 Office Visit Ana Theodore MD [facility] Showing recent visits within past 365 days and meeting all other requirements Future Appointments Date Type Provider Dept 02/08/23 Appointment Ana Theodore MD [facility] Showing future appointments within next 90 days [...] Range Status 06/21/2022 126.3 <130 mg/dL Final Passed - CMP in past 12 months SODIUM Date Value Ref Range Status 06/21/2022 138 136 - 144 mmol/L Final POTASSIUM Date Value Ref Range Status 06/21/2022 3.9 3.5 - 5.1 mmol/L Final CHLORIDE Date Value Ref Range Status 06/21/2022 104 100 - 110 mmol/L Final CO2, VENOUS Date Value Ref Range Status 06/21/2022 26 22 - 32 mmol/L Final ANION GAP Date Value Ref Range Status 06/21/2022 11.9 8.0 - 20.0 mmol/L Final GLUCOSE Date Value Ref Range Status 06/21/2022 115 (H) 70 - 99 mg/dL Final BUN Date Value Ref Range Status 06/21/2022 15 8 - 23 mg/dL Final CREATININE, BLOOD Date Value Ref Range Status 06/21/2022 0.87 0.60 - 1.10 mg/dL Final BUN/CREATININE RATIO Date Value Ref Range Status 06/21/2022 17 12 - 20 ratio Final TOTAL PROTEIN Date Value Ref Range Status 06/21/2022 7.3 6.0 - 8.3 g/dL Final ALBUMIN Date Value Ref Range Status 06/21/2022 4.5 3.5 - 5.2 g/dL Final Comment: The colormetric methods used for the determination of Albumin may lead to falsely elevated test results in patients suffering from renal failure or insufficiency due to interference with other proteins. A/G RATIO Date Value Ref Range Status 06/21/2022 1.6 1.0 - 2.0 Final CALCIUM Date Value Ref Range Status 06/21/2022 9.8 8.9 - 10.3 mg/dL Final T BILI Date Value Ref Range Status 06/21/2022 0.5 <=1.2 mg/dL Final SGOT (AST) Date Value Ref Range Status 06/21/2022 20 <=32 U/L Final SGPT (ALT) Date Value Ref Range Status 06/21/2022 14 <=41 U/L Final ALKALINE PHOSPHATASE Date Value Ref Range Status 06/21/2022 47 35 - 105 U/L Final GFR, EST. NONAFRICAN Date Value Ref Range Status 06/21/2022 >60 >=60 Final GFR, EST. Date Value Ref Range Status 06/21/2022 >60 >=60 Final GFR, ESTIMATED Date Value Ref Range Status 06/21/2022 >60 >=60 Final Comment: Creatinine Clearance is the preferred criteria for selecting drug dose adjustments in renally impaired patients. The GFR is provided as additional pertinent clinical information. GFR is reported in mL/min/1.73 sq m. Calculation based on the Chronic Kidney Disease Epidemiology Collaboration (CKD- EPI) equation refitwithout adjustment for race. IS THE PATIENT REQUIRED TO BE FASTING? Date Value Ref Range Status 06/21/2022 No Final metoprolol Succinate (TOPROL-XL) 25 MG TABLET SR 24 HR [Pharmacy Med Name: Metoprolol Succinate ER 25 MG Oral Tablet Extended Release 24 Hour] 90 Tablet 0 Sig: Take 1 tablet by mouth once daily Beta-Blockers Protocol Passed - 01/16/2023 7:05 PM Passed - BP on record in the past year Clinician-entered: BP Readings from Last 3 Encounters: 08/10/22 148/90 06/26/22 120/74 05/10/22 122/86 Patient-entered: No data recorded Passed - Visit with relevant provider in past 12 months or upcoming 90 days Recent Visits Date Type Provider Dept 06/26/22 Office Visit Ana Theodore MD [facility] 05/10/22 Office Visit Ana Theodore MD [facility] Showing recent visits within past 365 days and meeting all other requirements Future Appointments Date Type Provider Dept 02/08/23 Appointment Ana Theodore MD [facility] Showing future appointments within next 90 days and meeting all other requirements documented in this encounter Plan of Treatment Upcoming Encounters Date Type Department Care Team (Late st Contact Info) Description 02/19/2025 9:20 AM CDT Office Visit [facility] [address] [place] [address] Dami Santamaria MD [address] [place] [address] Discharge Disposition: Discharged to home or Selfcare 02/19/2025 9:30 AM CDT Clinical Support [facility] [address] [place] [address] Dami Satnamaria MD [address] [place] [address] Discharge Disposition: Discharged to home or Selfcare 07/02/2025 2:30 PM SURVEILLANCE SUPERVISOR Office Visit [facility] - Family [facility] [address] [place] [address] Kay Cabrales [facility] [address] [place] [address] documented as of this encounter Visit Diagnoses Diagnosis Acquired hypothyroidism Unspecified hypothyroidism Essential hypertension Unspecified essential hypertension documented in this encounter Additional Health Concerns Assessment Noted Time PHQ-9 Depression Total Score: 0 05/10/20 22 1:00 PM SURVEILLANCE SUPERVISOR documented as of this encounter Care Teams Recreational Facilities Motel Manager Relationship Specialty Start Date End Date Ana Theodore MD [address] [address] PCP - General Family Medicine 05/10/22 08/05/23 Kay Cabrales PAC [address] [place] [address] PCP - General Physician Healthcare Liaison 08/06/23 Dami Santamaria MD Consulting Physician Hematology 08/21/16 Erik Pathak MD Consulting Physician Radiation Oncology 09/22/16 Christiano Gregory MD [address] [address] Consulting Physician Endocrinology 01/10/22 Eyad Regaldao MD [address] [address] Consulting Physician Colon and Rectal Surgery 04/02/24 documented as of this encounter
--- OUTSIDE RECORDS SUMMARY | 2025-01-02 09:50 | XMS_ITS | Encounter Summary ---
Author Organization [facility] Address [address] [place] [address] Phone Care Team Providers Care Mill Operator Name Role Phone Dami Santamaria MD Unavailable [phone] Erik Pathak MD Unavailable [phone] Christiano Gregory MD Unavailable Ana Theodore MD Primary Care Provider Kay Cabrales Primary Care Provider + Eyad Regalado MD Unavailable Reason for Visit * Reason Comments Medication Refill Encounter Details Date Type Department Care Team (Late st Contact Info) Description 01/16/2023 Refill [facility] Medical Oncology [address] [place] [address] Dami Santamaria MD [address] [place], [place] [id number] Medication Refill Social History Tobacco Use Types [...] 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 Next f/u in 4 weeks. documented in this encounter Plan of Treatment Upcoming Encounters Date Type Department Care Team (Late st Contact Info) Description 02/19/2025 9:20 AM CDT [facility] [address] [place] [address] Dami Santamaria MD [address] [place] [address] Discharge Disposition: Discharged to home or Selfcare 02/19/2025 9:30 AM CDT Clinical Support [facility] Oncology Services [address] [place] [address] Dami Santamaria MD [address] [place] [address] Discharge Disposition: Discharged to home or Selfcare 07/02/2025 2:30 PM ALODIZE MACHINE HELPER [facility] Visit [facility] [address] [place] [address] Kay Cabrales, [facility] [address] [place] [address] documented as of this encounter Visit Diagnoses Diagnosis Malignant neoplasm of lower-outer quadrant of right female breast (HCC) Malignant neoplasm of lower-outer quadrant of female breast documented in this encounter Additional Health Concerns Assessment Noted Time PHQ-9 Depression Total Score: 0 05/10/20 1:00 PM ALODIZE MACHINE HELPER documented as of this encounter Care Teams Mill Operator Relationship Specialty Start Date End Date Ana Theodore MD [address] [address] PCP - General Family Medicine 05/10/22 08/05/23 Kay Cabrales PAC [address] [place] [address] PCP - General Physician Yard Goods Salesperson 08/06/23 Dami Santamaria MD Consulting Physician Hematology 08/21/16 Erik Pathak MD Consulting Physician Radiation Oncology 09/22/16 Christiano Gregory MD [address] [address] Consulting Physician Endocrinology 01/10/22 Eyad Regalado MD [address] [address] Consulting Physician Colon and Rectal Surgery 04/02/24 documented as of this encounter
--- OUTSIDE RECORDS SUMMARY | 2025-01-02 09:50 | XMS_ITS | Encounter Summary ---
Author Organization [facility] Address [address] [place] [address] Phone Care Team Providers Care Construction Trench Digger Name Role Phone Dami Santamaria MD Unavailable [phone] Erik Pathak MD Unavailable [phone] Christiano Gregory MD Unavailable Ana Theodore MD Primary Care Provider Kay Cabrales Primary Care Provider + Eyad Regalado MD Unavailable Reason for Visit * Reason Comments Medication Refill Encounter Details Date Type Department Care Team (Late st Contact Info) Description 04/10/2023 Refill [facility] - Primary Care - Radha [address] [place] [address] [place] [address] [place] [address] Medication Refill Social History Tobacco [...] 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 Requested Prescriptions Pending Prescriptions Disp Refills lovastatin (MEVACOR) 20 MG Tablet [Pharmacy Med Name: Lovastatin 20 MG Oral Tablet] 90 Tablet 1 Sig: TAKE 1 TABLET BY MOUTH ONCE DAILY IN THE EVENING Hmg CoA Reductase Inhibitors Protocol Passed - 04/10/2023 10:21 AM Passed - Visit with relevant provider in past 12 months or upcoming 90 days Recent Visits Date Type Provider Dept 02/08/23 Office Visit Ana Theodore MD [facility] 06/26/22 Office Visit Ana Theodore MD [facility] 05/10/22 Office Visit Ana Theodore MD [facility] Showing recent visits within past 365 days and meeting all other requirements Future Appointments No visits were found meeting these conditions. Showing future appointments within next 90 days and meeting all other requirements Passed - Lipid panel in past 12 months LDL Date Value Ref Range Status 02/01/2023 85 <130 mg/dL Final HDL CHOLESTEROL Date Value Ref Range Status 02/01/2023 39 (L) >40 mg/dL Final CHOLESTEROL Date Value Ref Range Status 02/01/2023 149 <200 mg/dL Final TRIGLYCERIDES Date Value Ref Range Status 02/01/2023 127 <150 mg/dL Final VLDL Date Value Ref Range Status 02/01/2023 25 10 - 50 mg/dL Final CHOL/HDL RATIO Date Value Ref Range Status 02/01/2023 3.8 0.0 - 4.4 Final NON-HDL CHOLESTEROL Date Value Ref Range Status 02/01/2023 110 <130 mg/dL Final Passed - CMP in past 12 months SODIUM Date Value Ref Range Status 02/01/2023 136 136 - 145 mmol/L Final POTASSIUM Date Value Ref Range Status 02/01/2023 4.4 3.5 - 5.1 mmol/L Final CHLORIDE Date Value Ref Range Status 02/01/2023 103 98 - 107 mmol/L Final CO2, VENOUS Date Value Ref Range Status 02/01/2023 25 22 - 30 mmol/L Final ANION GAP Date Value Ref Range Status 02/01/2023 12.4 <18.0 mmol/L Final GLUCOSE Date Value Ref Range Status 02/01/2023 108 (H) 70 - 99 mg/dL Final BUN Date Value Ref Range Status 02/01/2023 16 10 - 20 mg/dL Final CREATININE, BLOOD Date Value Ref Range Status 02/01/2023 0.86 0.60 - 1.00 mg/dL Final BUN/CREATININE RATIO Date Value Ref Range Status 02/01/2023 19 12 - 20 ratio Final TOTAL PROTEIN Date Value Ref Range Status 02/01/2023 7.5 6.3 - 8.2 g/dL Final ALBUMIN Date Value Ref Range Status 02/01/2023 4.1 3.5 - 5.0 g/dL Final A/G RATIO Date Value Ref Range Status 02/01/2023 1.2 1.0 - 2.2 Final CALCIUM Date Value Ref Range Status 02/01/2023 9.9 8.7 - 10.5 mg/dL Final T BILI Date Value Ref Range Status 02/01/2023 0.7 0.2 - 1.2 mg/dL Final SGOT (AST) Date Value Ref Range Status 02/01/2023 22 5 - 34 U/L Final SGPT (ALT) Date Value Ref Range Status 02/01/2023 14 0 - 55 U/L Final ALKALINE PHOSPHATASE Date Value Ref Range Status 02/01/2023 43 40 - 150 U/L Final GFR, EST. NONAFRICAN Date Value Ref Range Status 02/01/2023 >60 >=60 Final GFR, EST. Date Value Ref Range Status 02/01/2023 >60 >=60 Final GFR, ESTIMATED Date Value Ref Range Status 02/01/2023 >60 >=60 Final Comment: Creatinine Clearance is the preferred criteria for selecting drug dose adjustments in renally impaired patients. The GFR is provided as additional pertinent clinical information. GFR is reported in mL/min/1.73 sq m. Calculation based on the Chronic Kidney Disease Epidemiology Collaboration (CKD- EPI) equation refitwithout adjustment for race. IS THE PATIENT REQUIRED TO BE FASTING? Date Value Ref Range Status 02/01/2023 No Final amitriptyline (ELAVIL) 50 MG Tablet [Pharmacy Med Name: Amitriptyline HCl 50 MG Oral Tablet] 90 Tablet 1 Sig: Take 1 tablet by mouth nightly Not Delegated - Tricyclic Agents Protocol Failed - 04/10/2023 10:21 AM Failed - This refill cannot be delegated Passed - Visit with relevant provider in past 12 months or upcoming 90 days Recent Visits Date Type Provider Dept 02/08/23 Office Visit Ana Theodore MD [facility] 06/26/22 Office Visit [facility] Sodium 75 MCG Oral Tablet] 90 Tablet 1 Sig: Take 1 tablet by mouth once daily Thyroid Hormones Protocol Passed - 04/10/2023 10:21 AM Passed - Visit with relevant provider in past 12 months or upcoming 90 days Recent Visits Date Type Provider Dept 02/08/23 Office Visit Ana Theodore MD [facility] 06/26/22 Office Visit Ana Theodore MD [facility] 05/10/22 Office Visit Ana Theodore MD [facility] Showing recent visits within past 365 days and meeting all other requirements Future Appointments No visits were found meeting these conditions. Showing future appointments within next 90 days and meeting all other requirements Passed - Normal TSH in past 12 months TSH Date Value Ref Range Status 02/08/2023 1.584 0.300 - 5.000 mIU/L Final metoprolol Succinate (TOPROL-XL) 25 MG TABLET SR 24 HR [Pharmacy Med Name: Metoprolol Succinate ER 25 MG Oral Tablet Extended Release 24 Hour] 90 Tablet 1 Sig: Take 1 tablet by mouth once daily Beta-Blockers Protocol Passed - 04/10/2023 10:21 AM Passed - BP on record in the past year Clinician-entered: BP Readings from Last 3 Encounters: 02/15/23 131/76 02/08/23 124/80 08/10/22 148/90 Patient-entered: No data recorded Passed - Visit with relevant provider in past 12 months or upcoming 90 days Recent Visits Date Type Provider Dept 02/08/23 Office Visit Ana Theodore MD [facility] 06/26/22 Office Visit Ana Theodore MD [facility] 05/10/22 Office Visit Ana Theodore MD [facility] Showing recent visits within past 365 days and meeting all other requirements Future Appointments No visits were found meeting these conditions. Showing future appointments within next 90 days and meeting all other requirements RING ATTENDANT documented in this encounter Plan of Treatment Upcoming Encounters Date Type Department Care Team (Late st Contact Info) Description 02/19/2025 9:20 AM CDT Office Visit [facility] Oncology Services [address] [place] [address] Dami Santamaria MD 0 [place] [address] Discharge Disposition: Discharged to home or Selfcare 02/19/2025 9:30 AM CDT Clinical Support [facility] Oncology Services [address] [place] [address] Dami Santamaria MD 0 [place] [address] Discharge Disposition: Discharged to home or Selfcare 07/02/2025 2:30 PM CATERING ATTENDANT Office Visit [facility] - Family Medicine - [address] [place] [address] Kay Cabrales, [facility] [address] [place] [address] documented as of this encounter Visit Diagnoses Diagnosis Fibromyalgia Mylagia and myositis, unspecified Acquired hypothyroidism Unspecified hypothyroidism Essential hypertension Unspecified essential hypertension documented in this encounter Additional Health Concerns Assessment Noted Time PHQ-9 Depression Total Score: 0 05/10/20 1:00 PM CATERING ATTENDANT documented as of this encounter Care Teams Construction Trench Digger Relationship Specialty Start Date End Date Ana Theodore MD [address] [address] PCP - General Family Medicine 05/10/22 08/05/23 Kay Cabrales PAC [address] [place] [address] PCP - General Physician Child Development Teacher 08/06/23 Dami Santamaria MD Consulting Physician Hematology 08/21/16 Erik Pathak MD Consulting Physician Radiation Oncology 09/22/16 Christiano Gregory MD [address] [address] Consulting Physician Endocrinology 01/10/22 Eyad Regalado MD [address] [address] Consulting Physician Colon and Rectal Surgery 04/02/24 documented as of this encounter
--- OUTSIDE RECORDS SUMMARY | 2025-01-02 09:50 | XMS_ITS | Encounter Summary ---
Author Organization [facility] Address [address] [place] [address] Phone Care Team Providers Care Eap Specialist Name Role Phone Kaitlynn Christianson MD Primary Care Provider [phone] Dami Santamaria MD Unavailable [phone] Erik Pathak MD Unavailable [phone] Christiano Gregory MD Unavailable Ana Theodore MD Primary Care Provider Kay Cabrales Primary Care Provider + Eyad Regalado MD Unavailable Reason for Visit * Reason Comments Medication Refill Encounter Details Date Type Department Care Team (Late st Contact Info) Description 07/16/2021 Refill [facility] - Primary Care - [address] [place] [address] Kaitlynn Christianson MD [address] [place] [address] Medication Refill Social History Tobacco [...] 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 No / Unsure 07/05/2021 12:54 PM DECKHAND OYSTER DREDGE documented as of this encounter Miscellaneous Notes * Telephone Encounter - Amanda Andrews RN - 07/18/2021 10:04 AM DECKHAND OYSTER DREDGE Medication failed the protocol, provider to review and approve the medication order if appropriate. Requested Prescriptions Pending Prescriptions Disp Refills amitriptyline (ELAVIL) 50 MG Tablet [Pharmacy Med Name: Amitriptyline HCl 50 MG Oral Tablet] 90 Tablet 0 Sig: Take 1 tablet by mouth nightly Not Delegated - Tricyclic Agents Protocol Failed - 07/16/2021 1:42 PM Failed - This refill cannot be delegated Passed - Visit with relevant provider in past 12 months or upcoming 90 days Recent Visits Date Type Provider Dept 06/28/21 Office Visit Kaitlynn Christianson MD [facility] 02/08/21 Office Visit [facility]nn [facility]on [facility] 12/17/20 Office Visit Kaitlynn Christianson MD [facility] Showing recent visits within past 365 days and meeting all other requirements Future Appointments No visits were found meeting these conditions. Showing future appointments within next 90 days and meeting all other requirements Signed Prescriptions Disp Refills Euthyrox 75 MCG Tablet 90 Tablet 0 Sig: Take 1 tablet by mouth once daily Thyroid Hormones Protocol Passed - 07/16/2021 1:42 PM Passed - Visit with relevant provider in past 12 months or upcoming 90 days Recent Visits Date Type Provider Dept 06/28/21 Office Visit Kaitlynn Christianson MD [facility] [address] 02/08/21 Office [facility] 12/17/20 Office Visit [facility]aitlynn Christianson [facility] Showing recent visits within past 365 days [...] mouth once daily Beta-Blockers Protocol Passed - 07/16/2021 1:42 PM Passed - BP on record in the past year Clinician-entered: BP Readings from Last 3 Encounters: 07/05/21 147/75 06/28/21 120/62 02/08/21 122/60 Patient-entered: No data recorded Passed - Visit with relevant provider in past 12 months or upcoming 90 days Recent Visits Date Type Provider Dept 06/28/21 Office Visit Kaitlynn Christianson MD [facility] [address] 02/08/21 Office Visit Kaitlynn Christianson MD [address] 12/17/20 Office Visit [facility]aitlynn Christianson [facility] Showing recent visits within past 365 days and meeting all other requirements Future Appointments No visits were found meeting these conditions. Showing future appointments within next 90 days and meeting all other requirements lovastatin (MEVACOR) 20 MG Tablet 90 Tablet 0 Sig: TAKE 1 TABLET BY MOUTH ONCE DAILY IN THE EVENING Hmg CoA Reductase Inhibitors Protocol Passed - 07/16/2021 1:42 PM Passed - Visit with relevant provider in past 12 months or upcoming 90 days Recent Visits Date Type Provider Dept 06/28/21 Office Visit Kaitlynn Christianson MD [facility] [address] 02/08/21 Office Visit Kaitlynn Christianson [facility] 12/17/20 Office Visit Kaitlynn Christianson MD [facility] [employer] Showing recent visits within past 365 days [...] Status 06/15/2021 130.5 (H) <130 mg/dL Final HAND OYSTER DREDGE documented in this encounter Plan of Treatment Upcoming Encounters Date Type Department Care Team (Late st Contact Info) Description 02/19/2025 9:20 AM CDT Office Visit [facility] Oncology Services [address] [place] [address] Dami Santamaria MD [address] [place] [address] Discharge Disposition: Discharged to home or Selfcare 02/19/2025 9:30 AM CDT Clinical Support [facility] Oncology Services [address] [place] [address] Dami Santamaria MD [address] [place] [address] Discharge Disposition: Discharged to home or Selfcare 07/02/2025 2:30 PM DECKHAND OYSTER DREDGE Office Visit [facility] - Family Medicine [facility] [address] [place] [address] Kay Cabrales, [facility] [address] [place] [address] documented as of this encounter Visit Diagnoses Diagnosis Acquired hypothyroidism Unspecified hypothyroidism Essential hypertension Unspecified essential hypertension Fibromyalgia Mylagia and myositis, unspecified documented in this encounter Additional Health Concerns Assessment Noted Time PHQ-9 Depression Total Score: 0 04/03/20 19 10:00 AM DECKHAND OYSTER DREDGE documented as of this encounter Care Teams Eap Specialist Relationship Specialty Start Date End Date Kaitlynn Christianson MD PCP - General Family Medicine 03/07/15 05/09/22 Ana Theodore MD [address] [id number] PCP - General Family Medicine 05/10/22 08/05/23 Kay Cabrales PAC [address] [place] [address] PCP - General Physician Service Unit Operator Oil Well 08/06/23 Dami Santamaria MD Consulting Physician Hematology 08/21/16 Erik Pathak MD Consulting Physician Radiation Oncology 09/22/16 Christiano Gregory MD [address] [address] Consulting Physician Endocrinology 01/10/22 Eyad Regalado MD [address] [address] Consulting Physician Colon and Rectal Surgery 04/02/24 documented as of this encounter
--- OUTSIDE RECORDS SUMMARY | 2025-01-02 09:50 | XMS_ITS | Encounter Summary ---
Author Organization [facility] Address [address] [place] [address] Phone Care Team Providers Care National Insurance Officer Name Role Phone Dami Santamaria MD Unavailable [phone] Erik Pathak MD Unavailable [phone] Christiano Gregory MD Unavailable Ana Theodore MD Primary Care Provider Kay Cabrales Primary Care Provider + Eyad Regalado MD Unavailable Reason for Visit * Reason Comments Medication Refill Encounter Details Date Type Department Care Team (Late st Contact Info) Description 01/16/2023 Refill [facility] - Primary Care - [address] [place] [address] Kaitlynn Christianson MD [address] [place] [address] Medication Refill Social History Tobacco [...] 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 Requested Prescriptions Pending Prescriptions Disp Refills amitriptyline (ELAVIL) 50 MG Tablet [Pharmacy Med Name: Amitriptyline HCl 50 MG Oral Tablet] 90 Tablet 0 Sig: Take 1 tablet by mouth nightly Not Delegated - Tricyclic Agents Protocol Failed - 01/17/2023 8:28 AM Failed - This refill cannot be delegated Failed - Visit with relevant provider in past [...] Description 02/19/2025 9:20 AM CDT Office Visit [facility] On[facility] Services [address] [place] [address] Dami Santamaria MD [address] [place] [address] Discharge Disposition: Discharged to home or Selfcare 02/19/2025 9:30 AM CDT Clinical Support [facility] Oncology Services [address] [place] [address] Dami Santamaria MD [address] [place] [address] Discharge Disposition: Discharged to home or Selfcare 07/02/2025 2:30 PM ASSISTANT PLANT CONTROL OPERATOR Office Visit [facility] Family [facility] [address] [place] [address] Kay Cabrales, [facility] [address] [place] [address] documented as of this encounter Visit Diagnoses Diagnosis Fibromyalgia Mylagia and myositis, unspecified documented in this encounter Additional Health Concerns Assessment Noted Time PHQ-9 Depression Total Score: 0 05/10/20 22 1:00 PM ASSISTANT PLANT CONTROL OPERATOR documented as of this encounter Care Teams National Insurance Officer Relationship Specialty Start Date End Date Ana Theodore MD [address] [address] PCP - General Family Medicine 05/10/22 08/05/23 Kay Cabrales PAC [address] [place] [address] PCP - General Physician Recruiting Administrator 08/06/23 Dami Santamaria MD Consulting Physician Hematology 08/21/16 Erik Pathak MD Consulting Physician Radiation Oncology 09/22/16 Christiano Gregory MD [address] [address] Consulting Physician Endocrinology 01/10/22 Eyad Regalado MD [address] [address] Consulting Physician Colon and Rectal Surgery 04/02/24 documented as of this encounter
--- OUTSIDE RECORDS SUMMARY | 2025-01-02 09:50 | XMS_ITS | Encounter Summary ---
Author Organization [facility] Address [address] [place] [address] Phone Care Team Providers Care Baked Goods Stock Clerk Name Role Phone Dami Santamaria MD Unavailable [phone] Erik Pathak MD Unavailable [phone] Christiano Gregory MD Unavailable Kay Cabrales Primary Care Provider + Eyad Regalado MD Unavailable Reason for Visit * Reason Comments Medication Refill Encounter Details Date Type Department Care Team (Late st Contact Info) Description 10/05/2023 Refill [facility] - Primary Care - Radha [address] [place] [address] [place] [address] [place] [address] Medication Refill Social History Tobacco Use Types Packs/Day Years Used Date Smoking Tobacco: Never Smokeless Tobacco: Never Alcohol Use Standard Drinks/Week Comments Yes 0 (1 standard drink = 0.6 oz pur e alcohol) Occasionally. [facility] Utilities Answer Date Recorded In the past 12 months has [employer] electric, gas, oil, or water company threatened to shut off services in your home? No 08/07/2023 Social Connection and Isolation Panel Answer Date Recorded In a typical week, how many times do you talk on the phone with family, friends, or neighbors? More than three times a week 08/07/2023 How often do you get togethe r with friends or relatives? Three times a week 08/07/2023 How often do you attend chur ch or evangelical services? More than 4 times per year 08/07/2023 Do you belong to any clubs o r organizations such as moravian groups, unions, fraternal or athletic groups, or school groups? Yes 08/07/2023 How often do you attend meet ings of the clubs or organizations you belong to? More than 4 times per year 08/07/2023 Are you , , di vorced, , never , or living with a partner? 08/07/2023 AUDIT-C Answer Date Recorded Q1: How often do you have a drink containing alc ohol? Monthly or less 08/07/2023 Q2: How many drinks containi ng alcohol do you have on a typical day when you are drinking? 1 or 2 08/07/2023 Q3: How often do you have si x or more drinks on one occasion? Never 08/07/2023 Overall Financial Resource Strain (CARDIA) Answe r Date Recorded How hard is it for you to pa y for the very basics like food, housing, medical care, and heating? Not hard at all 08/07/2023 PHQ-2 Answer Date Recorded Total Score - Questions 1-9 0 07/20 [facility] - Occupational Stress Questionnaire Answer Date Recorded Do you feel stress - tense, restless, nervous, or anxious, or unable to sleep at night because your mind is troubled all the time - these days? Only a little 08/07/2023 Exercise Vital Sign Answer Date Recorde d On average, how many days pe r week do you engage in moderate to strenuous exercise (like a brisk walk)? 5 days 08/07/2023 On average, how many minutes do you engage in exercise at this level? 60 min 08/07/2023 Hunger Vital Sign Answer Date Recorded Within the past 12 months, y ou worried that your food would run out before you got the money to buy more. Never true 08/07/19 24 Within the past 12 months, t he food you bought just didn't last and you didn't have money to get more. Never true 08/07/2023 PRAPARE - Transportation Answer Date Re corded In the past 12 months, has l ack of transportation kept you from medical appointments or from getting medications? No 07/19 In the past 12 months, has l ack of transportation kept you from meetings, work, or from getting things needed for daily living? No 08/07/2023 Housing Stability Vital Sign Answer [...] place to sleep or slept in a longterm (including now)? 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 Requested Prescriptions Pending Prescriptions Disp Refills lovastatin (MEVACOR) 20 MG Tablet [Pharmacy Med Name: Lovastatin 20 MG Oral Tablet] 90 Tablet 1 Sig: TAKE 1 TABLET BY MOUTH ONCE DAILY IN THE EVENING Hmg CoA Reductase Inhibitors Protocol Passed - 10/05/2023 6:05 AM Passed - Visit with relevant provider in past 12 months or upcoming 90 days Recent Visits Date Type Provider Dept 08/09/23 Office Visit Kay Cabrales PAC [facility] 02/08/23 Office Visit [facility] MD [facility] [place] Showing recent visits within past 365 days and meeting all other requirements Future Appointments No visits were found meeting these conditions. Showing future appointments within next 90 days and meeting all other requirements Passed - Lipid panel in past 12 months LDL Date Value Ref Range Status 08/06/2023 95 <130 mg/dL Final HDL CHOLESTEROL Date Value Ref Range Status 08/06/2023 40 (L) >40 mg/dL Final CHOLESTEROL Date Value Ref Range Status 08/06/2023 183 <200 mg/dL Final TRIGLYCERIDES Date Value Ref Range Status 08/06/2023 242 (H) <150 mg/dL Final VLDL Date Value Ref Range Status 08/06/2023 48 10 - 50 mg/dL Final CHOL/HDL RATIO Date Value Ref Range Status 08/06/2023 4.6 (H) 0.0 - 4.4 Final NON-HDL CHOLESTEROL Date Value Ref Range Status 08/06/2023 143 (H) <130 mg/dL Final Passed - CMP in past 12 months SODIUM Date Value Ref Range Status 08/06/2023 140 136 - 145 mmol/L Final POTASSIUM Date Value Ref Range Status 08/06/2023 4.2 3.5 - 5.1 mmol/L Final CHLORIDE Date Value Ref Range Status 08/06/2023 107 98 - 107 mmol/L Final CO2, VENOUS Date Value Ref Range Status 08/06/2023 24 22 - 30 mmol/L Final ANION GAP Date Value Ref Range Status 08/06/2023 13.2 <18.0 mmol/L Final GLUCOSE Date Value Ref Range Status 08/06/2023 107 (H) 70 - 99 mg/dL Final BUN Date Value Ref Range Status 08/06/2023 13 10 - 20 mg/dL Final CREATININE - POCT Date Value Ref Range Status 07/23/2023 1.0 0.6 - 1.3 mg/dL Final CREATININE, BLOOD Date Value Ref Range Status 08/06/2023 0.81 0.60 - 1.00 mg/dL Final BUN/CREATININE RATIO Date Value Ref Range Status 08/06/2023 16 12 - 20 ratio Final TOTAL PROTEIN Date Value Ref Range Status 08/06/2023 7.6 6.3 - 8.2 g/dL Final ALBUMIN Date Value Ref Range Status 08/06/2023 4.5 3.5 - 5.0 g/dL Final A/G RATIO Date Value Ref Range Status 08/06/2023 1.5 1.0 - 2.2 Final CALCIUM Date Value Ref Range Status 08/06/2023 9.6 8.7 - 10.5 mg/dL Final T BILI Date Value Ref Range Status 08/06/2023 0.5 0.2 - 1.2 mg/dL Final SGOT (AST) Date Value Ref Range Status 08/06/2023 24 5 - 34 U/L Final SGPT (ALT) Date Value Ref Range Status 08/06/2023 18 0 - 55 U/L Final ALKALINE PHOSPHATASE Date Value Ref Range Status 08/06/2023 47 40 - 150 U/L Final GFR, EST. NONAFRICAN Date Value Ref Range Status 08/06/2023 >60 >=60 Final GFR, EST. Date Value Ref Range Status 08/06/2023 >60 >=60 Final GFR, ESTIMATED Date Value Ref Range Status 08/06/2023 >60 >=60 Final Comment: Creatinine Clearance is the preferred criteria for selecting drug dose adjustments in renally impaired patients. The GFR is provided as additional pertinent clinical information. GFR is reported in mL/min/1.73 sq m. Calculation based on the Chronic Kidney Disease Epidemiology Collaboration (CKD- EPI) equation refitwithout adjustment for race. IS THE PATIENT REQUIRED TO BE FASTING? Date Value Ref Range Status 08/06/2023 No Final amitriptyline (ELAVIL) 50 MG Tablet [Pharmacy Med Name: Amitriptyline HCl 50 MG Oral Tablet] 90 Tablet 1 Sig: Take 1 tablet by mouth nightly Not Delegated - Tricyclic Agents Protocol Failed - 10/05/2023 6:05 AM Failed - This refill cannot be delegated Passed - Visit with relevant provider in past 12 months or upcoming 90 days Recent Visits Date Type Provider Dept 08/09/23 Office Visit Kay Cabrales PAC [facility] 02/08/23 Office Visit Ana Theodore MD [facility] Showing recent visits within past 365 days and meeting all other requirements Future Appointments No visits were found meeting these conditions. Showing future appointments within next 90 days and meeting all other requirements levothyroxine (SYNTHROID) 75 MCG Tablet [Pharmacy Med Name: Levothyroxine Sodium 75 MCG Oral Tablet] 90 Tablet 1 Sig: Take 1 tablet by mouth once daily Thyroid Hormones Protocol Passed - 10/05/2023 6:05 AM Passed - Visit with relevant provider in past 12 months or upcoming 90 days Recent Visits Date Type Provider Dept 08/09/23 Office Visit Kay Cabrales PAC [facility] 02/08/23 Office Visit Ana Theodore MD [facility] Showing recent visits within past 365 days and meeting all other requirements Future Appointments No visits were found meeting these conditions. Showing future appointments within next 90 days and meeting all other requirements Passed - Normal TSH in past 12 months TSH Date Value Ref Range Status 08/06/2023 2.525 0.300 - 5.000 mIU/L Final metoprolol Succinate (TOPROL-XL) 25 MG TABLET SR 24 HR [Pharmacy Med Name: Metoprolol Succinate ER 25 MG Oral Tablet Extended Release 24 Hour] 90 Tablet 1 Sig: Take 1 tablet by mouth once daily Beta-Blockers Protocol Passed - 10/05/2023 6:05 AM Passed - BP on record in the past year Clinician-entered: BP Readings from Last 3 Encounters: 08/16/23 117/79 08/09/23 124/78 02/15/23 131/76 Patient-entered: No data recorded Passed - Visit with relevant provider in past 12 months or upcoming 90 days Recent Visits Date Type Provider Dept 08/09/23 Office Visit Kay Cabrales PAC [facility] 02/08/23 Office Visit Ana Theodore MD [facility] Showing recent visits within past 365 days and meeting all other requirements Future Appointments No visits were found meeting these conditions. Showing future appointments within next 90 days and meeting all other requirements documented in this encounter Plan of Treatment Upcoming Encounters Date Type Department Care Team (Late st Contact Info) Description 02/19/2025 9:20 AM CDT Office Visit [facility] [address] [place] [address] Dami Santamaria MD [address] [place] [address] Discharge Disposition: Discharged to home or Selfcare 02/19/2025 9:30 AM CDT Clinical Support [facility] [address] [place] [address] Dami Santamaria MD [address] [place] [address] Discharge Disposition: Discharged to home or Selfcare 07/02/2025 2:30 PM DOUGH PANNER Office Visit [facility] [address] [place] [address] Kay Cabrales PAC [address] [place] [address] documented as of this encounter Visit Diagnoses Diagnosis Fibromyalgia Mylagia and myositis, unspecified Acquired hypothyroidism Unspecified hypothyroidism Essential hypertension Unspecified essential hypertension documented in this encounter Additional Health Concerns Assessment Noted Time PHQ-9 Depression Total Score: 0 08/09/19 24 9:04 AM CDT documented as of this encounter Care Teams Baked Goods Stock Clerk Relationship Specialty Start Date End Date Kay Cabrales PAC [address] [place] [address] PCP - General Physician Director [employer] 08/06/23 Dami Santamaria MD Consulting Physician Hematology 08/21/16 Erik Pathak MD Consulting Physician Radiation Oncology 09/22/16 Christiano Gregory MD [address] [address] Consulting Physician Endocrinology 01/10/22 Eyad Regalado MD [address] [place] [address] Consulting Physician Colon and Rectal Surgery 04/02/24 documented as of this encounter
--- NOTE | 2025-01-02 09:53 | ECG_ITS ---
Test Date: 2025-01-02 10:08:24 Measurements Intervals [place] Rate: 81 P: 47 MI: 193 QRS: -18 QRSD: 96 T: 31 QT: 367 QTc: 428 Interpretive Statements SINUS RHYTHM VOLTAGE CRITERIA FOR LVH BORDERLINE R WAVE PROGRESSION, ANTERIOR LEADS BASELINE ARTIFACT- I, II, III, AVR, AVL, AVF, V1-V6 BORDERLINE ECG No previous ECG available for comparison Electronically Signed On 01-02-2025 10:47:07 CDT by Horacio Zaidi D.O.
[2025-01-02 10:33] LABS: INR 0.9; Partial Thromboplastin Time 31.1 Seconds (22.3-36.8); Prothrombin Time 12.6 Seconds (11.1-14.7)
== END 2025-01-02 09:45 | disposition home or self-care (01) ==
PROVIDERS: PCP Physician Assistant; Visit Provider Urology
DX: N20.0 Calculus of kidney (principal); E78.5 Hyperlipidemia, unspecified; I10 Essential (primary) hypertension; Z01.818 Encounter for other preprocedural examination
CPT/HCPCS: 36415; 85610; 85730; 87086; 93005

== ENCOUNTER 2025-01-09 02:54 | Day surgery (SDC) | payer MEDICARE, SELFPAY ==
[2024-12-31 15:19] VITALS: BMI 27.5
--- NOTE | 2024-12-31 15:27 | PC.NURSE ---
Report to the Outpatient Waiting Room, entrance under the green pavilion located off [facility], at time _0600am on date __01/09/25 . Planned Procedure Time: _0730am .? Time changes happen often and if your time is changed the preop area will call you the afternoon before. - You and your visitor will be asked to self-screen and do not enter if you have any COVID symptoms. Please call surgeon if you need to reschedule. - A mask is optional within the hospital at this time. Patients may have clear liquids (water, carbonated beverages, clear teas, apple juice) until 3 hours prior to surgery with a maximum of 20 ounces. - No food from midnight until time of surgery and no smoking, or chewing tobacco (or any form of nicotine). No chewing gum, candy or mints. (0430am) Take only the following medications with a SIP of water on the morning of surgery: ____Levothyroxine , tylenol if needed DO NOT STOP ANY OF YOUR OTHER PRESCRIPTION MEDICATIONS PRIOR TO SURGERY EXCEPT THE FOLLOWING Hold all vitamins and supplements for [address] Randel, date of last dose is 12/31/24 Medications to discontinue per physician No Aspirin, Motrin, Advil for [address] Randle Date to take last dose____12/31/24 Please no make-up, nail estonian, hairspray, perfume, deodorant, or body powder the day of surgery.? No jewelry (including any body piercings) or valuables the day of surgery, leave them at home.? Please take a shower or bath the night before, or the morning of, surgery with an antibacterial soap.?( GOLD DIAL) Wear comfortable, loose fitting clothing.? - Jewelry must be removed prior to entering the operating room.? Rings and piercings that are not removed may be cut off. - The hospital will not accept responsibility for valuables.? - Please leave all valuables, including medications, at home the day of surgery. If you are going home after surgery, a licensed log truck driver must drive you home.? - NO public transportation without another adult if you receive anesthesia. - We recommend that an adult stay with you for 24 hours following discharge. - We also recommend that you do not drive, make important decision, drink alcoholic beverages, or take any drugs that were not prescribed by your health care provider for at least 24 hours after your discharge time. Follow any additional instructions given to you from your surgeon. Telephone instructions given to __Patient and asked if any additional questions and then verbalized understanding. Patient advised to call surgeon office or pre surgery nurse liaison [phone] if any additional questions.
[2025-01-09] VITALS (9 sets, daily range): BP systolic 89–126; BP diastolic 48–82; PULSE 75–84; RESP 12–20; TEMP 36.3–36.5; O2SAT 96–100; BMI 28.4
--- NOTE | ~2025-01-09 | XR_ITS ---
EXAMINATION: XR abdomen/kub 1V DATE: 01/09/2025 06:13 INDICATION: ESWL TECHNIQUE: A supine view of the abdomen on 2 radiographs was obtained. COMPARISON: 12/25/2023 FINDINGS: 4 mm calcification in the left kidney, unchanged as compared to the study from 12/25/2023. Small to moderate amount of air and stool in nondilated large bowel. Cholecystectomy clips are present. Lung bases are grossly clear. There are calcifications in the pelvis likely phleboliths similar to the previous study. IMPRESSION: 1. Stable left renal stone. 2. Nonspecific abdomen with a small to moderate amount of stool. Reviewed, dictated and finalized at location Q.
--- OUTSIDE RECORDS SUMMARY | 2025-01-09 02:59 | XMS_ITS | Encounter Summary ---
Author Organization [facility] Address [address] [place] [address] Phone Care Team Providers Care Associate Doctor Name Role Phone Kaitlynn Christianson MD Primary Care Provider [phone] Dami Santamaria MD Unavailable [phone] Erik Pathak MD Unavailable [phone] Ct[facility] Unavailable Sharon vailable Christiano Gregory MD Unavailable Ana Theodore MD Primary Care Provider Kay Cabrales Primary Care Provider + Eyad Regalado MD Unavailable Reason for Visit * Reason Comments Medication Refill Encounter Details Date Type Department Care Team (Late st Contact Info) Description 07/25/[address] 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 RONMENTAL HEALTH AIDE documented in this encounter Plan of Treatment Upcoming Encounters Date Type Department Care Team (Late st Contact Info) Description 02/19/2025 9:20 AM CDT Office Visit [facility] [place] [facility] [address] [place] [address] Dami Santamaria MD [address] [place] [address] Discharge Disposition: Discharged to home or Selfcare 02/19/2025 9:30 AM CDT Clinical Support [facility] On[facility] Services [address] [place] [address] Dami Santamaria MD [address] [place] [address] Discharge Disposition: Discharged to home or Selfcare 07/02/2025 2:30 PM ENVIRONMENTAL HEALTH AIDE Office Visit [facility] - Family Medicine [facility] [address] [place] [address] Kay Cabrales, PAC [address] [place] [address] documented as of this encounter Visit Diagnoses Diagnosis Essential hypertension Unspecified essential hypertension Acquired hypothyroidism Unspecified hypothyroidism documented in this encounter Additional Health Concerns Assessment Noted Time PHQ-9 Depression Total Score: 0 04/03/20 19 10:00 AM ENVIRONMENTAL HEALTH AIDE documented as of this encounter Care Teams Associate Doctor Relationship Specialty Start Date End Date Kaitlynn Christianson MD PCP - General Family Medicine 03/07/15 05/09/22 Ana Theodore MD [address] [address] PCP - General Family Medicine 05/10/22 08/05/23 Kay Cabrales PAC [address] [place] [address] PCP - General Physician Marine Engine Machinist 08/06/23 Dami Santamaria MD Consulting Physician Hematology 08/21/16 Erik Pathak MD Consulting Physician Radiation Oncology 09/22/16 [facility] 12/13/19 12/15/20 Christiano Gregory MD [address] [address] Consulting Physician Endocrinology 01/10/22 Eyad Regalado MD [address] [address] Consulting Physician Colon and Rectal Surgery 04/02/24 documented as of this encounter
--- OUTSIDE RECORDS SUMMARY | 2025-01-09 02:59 | XMS_ITS | Encounter Summary ---
Author Organization [facility] Address [address] [place] [address] Phone Care Team Providers Care Compensation Director Name Role Phone Kaitlynn Christianson MD Primary Care Provider [phone] Dami Santamaria MD Unavailable [phone] Erik Pathak MD Unavailable [phone] Ct[facility] Unavailable Sharon vailable Christiano Gregory MD Unavailable Ana Theodore MD Primary Care Provider Kay Cabrales Primary Care Provider + Eyad Regalado MD Unavailable Reason for Visit * Reason Comments Medication Refill Encounter Details Date Type Department Care Team (Late st Contact Info) Description 04/26/2020 Refill 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 R HELPER documented in this encounter Plan of Treatment Upcoming Encounters Date Type Department Care Team (Late st Contact Info) Description 02/19/2025 9:20 AM CDT Office Visit [facility] [place] [facility] [address] [place] [address] Dami Santamaria MD [address] [place] [address] Discharge Disposition: Discharged to home or Selfcare 02/19/2025 9:30 AM CDT Clinical Support [facility] Oncology Services [address] [place] [address] Dami Santamaria MD [address] [place] [address] Discharge Disposition: Discharged to home or Selfcare 07/02/2025 2:30 PM DRIER HELPER Office Visit [facility] - Family Medicine [facility] [address] [place] [address] Kay Cabrales, [facility] [address] [place] [address] documented as of this encounter Visit Diagnoses Diagnosis Malignant neoplasm of lower-outer quadrant of right female breast (HCC) Malignant neoplasm of lower-outer quadrant of female breast documented in this encounter Additional Health Concerns Assessment Noted Time PHQ-9 Depression Total Score: 0 04/03/20 19 10:00 AM DRIER HELPER documented as of this encounter Care Teams Compensation Director Relationship Specialty Start Date End Date Kaitlynn Christianson MD PCP - General Family Medicine 03/07/15 05/09/22 Ana Theodore MD [address] [address] PCP - General Family Medicine 05/10/22 08/05/23 Kay Cabrales PAC [address] [place] [address] PCP - General Physician Examining Officer 08/06/23 Dami Santamaria MD Consulting Physician Hematology 08/21/16 Erik Pathak MD Consulting Physician Radiation Oncology 09/22/16 [facility] 12/13/19 12/15/20 Christiano Gregory MD [address] [address] Consulting Physician Endocrinology 01/10/22 Eyad Regalado MD [address] [address] Consulting Physician Colon and Rectal Surgery 04/02/24 documented as of this encounter
--- OUTSIDE RECORDS SUMMARY | 2025-01-09 02:59 | XMS_ITS | Encounter Summary ---
Author Organization [facility] Address [address] [place] [address] Phone Care Team Providers Care Emergency Veterinary Technician Name Role Phone Kaitlynn Christianson MD Primary Care Provider [phone] Dami Santamaria MD Unavailable [phone] Erik Pathak MD Unavailable [phone] Christiano Gregory MD Unavailable Ana Theodore MD Primary Care Provider Kay Cabrales Primary Care Provider + Eyad Regalado MD Unavailable Reason for Visit * Reason Comments Medication Refill Encounter Details Date Type Department Care Team (Late st Contact Info) Description 01/26/2021 [facility] [address] [place] [address] Kaitlynn Christianson MD [address] [place] [address] Medication Refill Social History Tobacco [...] 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 [...] Dept 12/17/20 Office Visit Kaitlynn Christianson MD [facility] 06/17/20 Telemedicine Kaitlynn Christianson MD [facility] Showing recent visits within past 365 days [...] Dept 12/17/20 Office Visit Kaitlynn Christianson MD [facility] 06/17/20 Telemedicine Kaitlynn Christianson MD [facility] Showing recent visits within past 365 [...] Dept 12/17/20 Office Visit Kaitlynn Christianson MD [facility] 06/17/20 Telemedicine Kaitlynn Christianson MD [facility] Showing recent visits within past 365 [...] Outpatient Visits 1 month ago Essential hypertension [facility] Medical [facility] Kaitlynn Christianson MD 7 months ago Essential hypertension [facility] Kaitlynn Christianson MD 1 year ago Essential hypertension [facility] Kait[facility]nn Everett MD 1 year ago Essential hypertension [facility] Kait[facility]nn Everett MD 2 years ago Essential hypertension [facility] Kaitlynn Christianson MD Upcoming Appointments Future Appointments In 4 months [facility] In 4 months Dami Santamaria MD [facility] Oncology Services, [facility] In 4 months [facility] CC INFUSION CHR1 [facility] Services, [facility] In 4 months Kaitlynn Christianson MD [facility] In 10 months Erik Pathak MD [facility] Oncology Services, [facility] CLERICAL AIDE TEACHER - Recent and Past Visits Recent Visits Date Type Provider Dept 12/17/20 Office Visit Kaitlynn Christianson MD [facility] 06/17/20 Telemedicine Kaitlynn Christianson MD [facility] 11/14/19 Telemedicine Kaitlynn Christianson MD [facility] Showing recent visits within past 460 [...] Description 02/19/2025 9:20 AM CDT Office Visit [facility] Services [address] [place] [address] Dami Santamaria MD [address] [place] [address] Discharge Disposition: Discharged to home or Selfcare 02/19/2025 9:30 AM CDT Clinical Support [facility] [address] [place] [address] Dami Santamaria MD [address] [place] [address] Discharge Disposition: Discharged to home or Selfcare 07/02/2025 2:30 PM FINANCIAL MANAGEMENT Office Visit [facility] Medical Group - Family [facility] [address] [place] [address] Kay Cabrales, PAC [address] [place] [address] documented as of this encounter Visit Diagnoses Diagnosis Acquired hypothyroidism Unspecified hypothyroidism Essential hypertension Unspecified essential hypertension Fibromyalgia Mylagia and myositis, unspecified documented in this encounter Additional Health Concerns Assessment Noted Time PHQ-9 Depression Total Score: 0 04/03/20 19 10:00 AM FINANCIAL MANAGEMENT documented as of this encounter Care Teams Emergency Veterinary Technician Relationship Specialty Start Date End Date Kaitlynn Christianson MD PCP - General Family Medicine 03/07/15 05/09/22 Ana Theodore MD [address] [address] PCP - General Family Medicine 05/10/22 08/05/23 Kay Cabrales, PAC [address] [place] [address] PCP - General Physician Equipment Cleaner 08/06/23 Dami Santamaria MD Consulting Physician Hematology 08/21/16 Erik Pathak MD Consulting Physician Radiation Oncology 09/22/16 Christiano Gregory MD [address] [address] Consulting Physician Endocrinology 01/10/22 Eyad Regalado MD [address] [address] Consulting Physician Colon and Rectal Surgery 04/02/24 documented as of this encounter
--- OUTSIDE RECORDS SUMMARY | 2025-01-09 02:59 | XMS_ITS ---
Author Organization Unknown ENCOUNTERS Encounter Performer Location Date Diagnosis Diagnosis Status Outpatient [facility] [address] [place] [address] [id number] [facility] [address] [place] [address] [id number] [facility] [address] [place] [address] [id number] [facility] [address] [place] [phone] [id number] [facility] [address] [place] [address] [id number] [facility] [address] [place] [phone] [id number] [facility] Outpatient [facility] [address] [place] [address] [id number] [facility] [address] [place] [phone] [id number] [facility] Out[facility] [address] [place] [address] [id number] [facility] Pre Admit [facility] [address] [place] [phone] [id number] *Note: Encounters from your own facility or health system may be excluded. Allergies, Adverse Reactions, Alerts Allergen Type Severity Identification Date hydrocodone drug allergy 4 [id number] Medications Name Date Quantity Days Supplied GPI Number
--- OUTSIDE RECORDS SUMMARY | 2025-01-09 02:59 | XMS_ITS | Encounter Summary ---
Author Organization [facility] Address [address] [place] [address] Phone Care Team Providers Care Converter Supervisor Name Role Phone Kaitlynn Christianson MD Primary Care Provider [phone] Dami Santamaria MD Unavailable [phone] Erik Pathak MD Unavailable [phone] Christiano Gregory MD Unavailable Ana Theodore MD Primary Care Provider Kay Cabrales Primary Care Provider + Eyad Regalado MD Unavailable Reason for Visit * Reason Comments Medication Refill Encounter Details Date Type Department Care Team (Late st Contact Info) Description 10/10/[address] 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 Not on file [...] Dept 06/28/21 Office Visit Kaitlynn Christianson MD [facility] [employer] 02/08/21 Office Visit Kaitlynn Christianson MD [facility] [employer] [facility] 12/17/20 Office Visit Kaitlynn Christianson MD [facility] [employer] Showing recent visits within past 365 days and meeting all other requirements Future Appointments Date Type Provider Dept 12/19/21 Appointment Andi [facility] [employer] [facility] 12/26/21 Appointment Kaitlynn Christianson MD [facility] [employer] Showing future appointments within next 90 days [...] Dept 06/28/21 Office Visit Kaitlynn Christianson MD [facility] [place] [address] [address] 02/08/21 Office Visit Kaitlynn Christianson MD [facility] [employer] [facility] 12/17/20 Office Visit Kaitlynn Christianson MD [facility] [employer] Showing recent visits within past 365 days and meeting all other requirements Future Appointments Date Type Provider Dept 12/19/21 Appointment Lab, [facility] [place] [place] [employer] [facility] 12/26/21 Appointment Kaitlynn Christianson MD [facility] [employer] Showing future appointments within next 90 days [...] Dept 06/28/21 Office Visit Kaitlynn Christianson MD [facility] [employer] [facility] 02/08/21 Office Visit Kaitlynn Christianson MD [facility] [employer] [facility] 12/17/20 Office Visit Kaitlynn Christianson MD [facility] [employer] [facility] Showing recent visits within past 365 days and meeting all other requirements Future Appointments Date Type Provider Dept 12/19/21 Appointment Lab, [facility] [place] [place] [employer] [facility] 12/26/21 Appointment Kaitlynn Christianson MD [facility] [employer] [facility] Showing future appointments within next 90 [...] Dept 06/28/21 Office Visit Kaitlynn Christianson MD [address] 02/08/21 Office Visit Kaitlynn Christianson MD [employer] 12/17/20 Office Visit Kaitlynn Christianson MD [facility] [place] [employer] Showing recent visits within past 365 days and meeting all other requirements Future Appointments Date Type Provider Dept 12/19/[address] [facility] [address] 12/26/21 Appointment Kaitlynn Christianson MD [facility] [place] [place] [employer] Showing future appointments within next 90 days and meeting all other requirements documented in this encounter Plan of Treatment Upcoming Encounters Date Type Department Care Team (Late st Contact Info) Description 02/19/2025 9:20 AM CDT Office Visit [facility] [address] [place] [phone] Dami Santamaria MD [address] [place] [address] Discharge Disposition: Discharged to home or Selfcare 02/19/2025 9:30 AM CDT Clinical Support [facility] [address] [place] [phone] Dami Santamaria MD [address] [place] [address] Discharge Disposition: Discharged to home or Selfcare 07/02/2025 2:30 PM CARTRIDGE ASSEMBLER Office Visit [facility] [address] [place] [address] Kay Cabrales, [place]ENT[place] [address] [place] [address] documented as of this encounter Visit Diagnoses Diagnosis Fibromyalgia Mylagia and myositis, unspecified Acquired hypothyroidism Unspecified hypothyroidism Essential hypertension Unspecified essential hypertension documented in this encounter Additional Health Concerns Assessment Noted Time PHQ-9 Depression Total Score: 0 04/03/20 19 10:00 AM CARTRIDGE ASSEMBLER documented as of this encounter Care Teams Converter Supervisor Relationship Specialty Start Date End Date Kaitlynn Christianson MD PCP - General Family Medicine 03/07/15 05/09/22 Ana Theodore MD [address] [address] PCP - General Family Medicine 05/10/22 08/05/23 Kay Cabrales PAC [address] [place] [address] PCP - General Physician Medical Insurance [place] 08/06/23 Dami Santamaria MD Consulting Physician Hematology 08/21/16 Erik Pathak MD Consulting Physician Radiation Oncology 09/22/16 Christiano Gregory MD [address] [address] Consulting Physician Endocrinology 01/10/22 Eyad Regalado MD [address] [place] [address] Consulting Physician Colon and Rectal Surgery 04/02/24 documented as of this encounter
--- OUTSIDE RECORDS SUMMARY | 2025-01-09 02:59 | XMS_ITS | Encounter Summary ---
Author Organization [facility] Address [address] [place] [address] Phone Care Team Providers Care Senior Benefits Manager Name Role Phone Dami Santamaria MD Unavailable [phone] Erik Pathak MD Unavailable [phone] Christiano Gregory MD Unavailable Ana Theodore MD Primary Care Provider [phone] Kay Cabrales Primary Care Provider + Eyad Regalado MD Unavailable Reason for Visit * Reason Comments Medication Refill Encounter Details Date Type Department Care Team (Late st Contact Info) Description 01/16/2023 Refill [facility] - Primary Care - Radha [address] [place] [address] [place] [address] [place] [address] Medication Refill Social History Tobacco [...] Provider Dept 02/08/23 Appointment Ana Theodore MD [facility] Showing future appointments within next 90 days and meeting all other requirements documented in this encounter Plan of Treatment Upcoming Encounters Date Type Department Care Team (Late st Contact Info) Description 02/19/2025 9:20 AM CDT Office Visit [facility] Services [address] [place] [address] Dami Santamaria MD [address] [place] [address] Discharge Disposition: Discharged to home or Selfcare 02/19/2025 9:30 AM CDT Clinical Support [facility] [address] [place] [address] Dami Santamaria MD [address] [place] [address] Discharge Disposition: Discharged to home or Selfcare 07/02/2025 2:30 PM SCIENTIFIC RECRUITER Office Visit [facility] Medical [facility] - Family [facility] [address] [place] [address] Kay Cabrales [facility] [address] [place] [address] documented as of this encounter Visit Diagnoses Diagnosis Acquired hypothyroidism Unspecified hypothyroidism Essential hypertension Unspecified essential hypertension documented in this encounter Additional Health Concerns Assessment Noted Time PHQ-9 Depression Total Score: 0 05/10/20 22 1:00 PM SCIENTIFIC RECRUITER documented as of this encounter Care Teams Senior Benefits Manager Relationship Specialty Start Date End Date Ana Theodore MD [address] [address] PCP - General Family Medicine 05/10/22 08/05/23 Kay Cabrales PAC [address] [place] [address] PCP - General Physician Offbearer 08/06/23 Dami Santamaria MD Consulting Physician Hematology 08/21/16 Erik Pathak MD Consulting Physician Radiation Oncology 09/22/16 Christiano Gregory MD [address] [address] Consulting Physician Endocrinology 01/10/22 Eyad Regalado MD [address] [address] Consulting Physician Colon and Rectal Surgery 04/02/24 documented as of this encounter
--- OUTSIDE RECORDS SUMMARY | 2025-01-09 02:59 | XMS_ITS | Encounter Summary ---
Author Organization [facility] Address [address] [place] [address] Phone Care Team Providers Care Third Rigger Name Role Phone Dami Santamaria MD Unavailable [phone] Erik Pathak MD Unavailable [phone] Christiano Gregory MD Unavailable Ana Theodore MD Primary Care Provider Kay Cabrales Primary Care Provider + Eyad Regalado MD Unavailable Reason for Visit * Reason Comments Medication Refill Encounter Details Date Type Department Care Team (Late st Contact Info) Description 01/16/2023 Refill [facility] - Primary Care - [address] [place] [address] Kaitlynn Christianson MD [address] [place] [address] Medication Refill Social History Tobacco [...] 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 Not on [...] Description 02/19/2025 9:20 AM CDT Office Visit [facility] [address] [place] [address] Dami Santamaria MD [address] [place] [address] Discharge Disposition: Discharged to home or Selfcare 02/19/2025 9:30 AM CDT Clinical Support [facility] [address] [place] [address] Dami Santamaria MD [address] [place] [address] Discharge Disposition: Discharged to home or Selfcare 07/02/2025 2:30 PM PEWTER FINISHER Office Visit [facility] Family [facility] [address] [place] [address] Kay Cabrales, VALENTIN [address] [place] [address] documented as of this encounter Visit Diagnoses Diagnosis Fibromyalgia Mylagia and myositis, unspecified documented in this encounter Additional Health Concerns Assessment Noted Time PHQ-9 Depression Total Score: 0 05/10/20 22 1:00 PM PEWTER FINISHER documented as of this encounter Care Teams Third Rigger Relationship Specialty Start Date End Date Ana Theodore MD [address] [address] PCP - General Family Medicine 05/10/22 08/05/23 Kay Cabrales PAC [address] [place] [address] PCP - General Physician Fundraising Sale Representative 08/06/23 Dami Santamaria MD Consulting Physician Hematology 08/21/16 Erik Pathak MD Consulting Physician Radiation Oncology 09/22/16 Christiano Gregory MD [address] [address] Consulting Physician Endocrinology 01/10/22 Eyad Regalado MD [address] [address] Consulting Physician Colon and Rectal Surgery 04/02/24 documented as of this encounter
--- OUTSIDE RECORDS SUMMARY | 2025-01-09 02:59 | XMS_ITS | Encounter Summary ---
Author Organization [facility] Address [address] [place] [address] Phone Care Team Providers Care Community Representative Name Role Phone Kaitlynn Christianson MD Primary Care Provider [phone] Dami Santamaria MD Unavailable [phone] Erik Pathak MD Unavailable [phone] Christiano Gregory MD Unavailable Ana Theodore MD Primary Care Provider Kay Cabrales Primary Care Provider + Eyad Regalado MD Unavailable Reason for Visit * Reason Comments Medication Refill Encounter Details Date Type Department Care Team (Late st Contact Info) Description 07/16/2021 Refill [facility] - Primary Care - [address] [place] [address] Kaitlynn Christianson MD [address] [place] [address] Medication Refill Social History Tobacco [...] 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 No / Unsure 07/05/2021 12:54 PM ROOFING MACHINE OPERATOR documented as of this encounter Miscellaneous Notes * Telephone Encounter - Amanda Andrews RN - 07/18/2021 10:04 AM ROOFING MACHINE OPERATOR Medication failed the protocol, provider to review [...] Dept 06/28/21 Office Visit Kaitlynn Christianson MD [facility] [address] [email or web address] [facility] 02/08/21 Office Visit [facility]lynn Christianson MD [facility] 12/17/20 Office Visit Kaitlynn Christianson MD [facility] [address] [facility] Showing recent visits within past 365 [...] Dept 06/28/21 Office Visit Kaitlynn Christianson MD [facility] [address] [email or web address] [address] 02/08/21 Office Visit Kaitlynn Christianson MD [facility] [employer] 12/17/20 Office Visit Kaitlynn Christianson MD [facility] [employer] Showing recent visits within past 365 days [...] Dept 06/28/21 Office Visit Kaitlynn Christianson MD [email or web address] [address] 02/08/21 Office Visit Kaitlynn Christianson MD [facility] [address] 12/17/20 Office Visit Kaitlynn Christianson MD [facility] [employer] Showing recent visits within past 365 days [...] Dept 06/28/21 Office Visit Kaitlynn Christianson MD [facility] [email or web address] [address] 02/08/21 Office Visit Kaitlynn Christianson [email or web address] [address] 12/17/20 Office Visit Kaitlynn Christianson MD [employer] Showing recent visits within past 365 days [...] Status 06/15/2021 130.5 (H) <130 mg/dL Final ING MACHINE OPERATOR documented in this encounter Plan of Treatment Upcoming Encounters Date Type Department Care Team (Late st Contact Info) Description 02/19/2025 9:20 AM CDT Office Visit [facility] Services [address] [place] [address] Dami Santamaria MD [address] [place] [address] Discharge Disposition: Discharged to home or Selfcare 02/19/2025 9:30 AM CDT Clinical Support [facility] [address] [place] [address] Dami Santamaria MD [address] [place] [address] Discharge Disposition: Discharged to home or Selfcare 07/02/2025 2:30 PM ROOFING MACHINE OPERATOR Office Visit [facility] - Family Medicine [facility] [address] [place] [address] Kay Cabrales, [facility] [address] [place] [address] documented as of this encounter Visit Diagnoses Diagnosis Acquired hypothyroidism Unspecified hypothyroidism Essential hypertension Unspecified essential hypertension Fibromyalgia Mylagia and myositis, unspecified documented in this encounter Additional Health Concerns Assessment Noted Time PHQ-9 Depression Total Score: 0 04/03/20 19 10:00 AM ROOFING MACHINE OPERATOR documented as of this encounter Care Teams Community Representative Relationship Specialty Start Date End Date Kaitlynn Christianson MD PCP - General Family Medicine 03/07/15 05/09/22 Ana Theoodre MD [address] [phone] PCP - General Family Medicine 05/10/22 08/05/23 Kay Cabrales PAC [address] [place] [address] PCP - General Physician Bilingual Teacher Aide 08/06/23 Dami Santamaria MD Consulting Physician Hematology 08/21/16 Erik Pathak MD Consulting Physician Radiation Oncology 09/22/16 Christiano Gregory MD [address] [address] Consulting Physician Endocrinology 01/10/22 Eyad Regalado MD [address] [address] Consulting Physician Colon and Rectal Surgery 04/02/24 documented as of this encounter
--- OUTSIDE RECORDS SUMMARY | 2025-01-09 02:59 | XMS_ITS | Encounter Summary ---
Author Organization [facility] Address [address] [place] [address] Phone Care Team Providers Care Mechanical Design Technician Name Role Phone Kaitlynn Christianson MD Primary Care Provider [phone] Dami Santamaria MD Unavailable [phone] Erik Pathak MD Unavailable [phone] Christiano Gregory MD Unavailable Ana Theodore MD Primary Care Provider Kay Cabrales Primary Care Provider + Eyad Regalado MD Unavailable Reason for Visit * Reason Comments Medication Refill Encounter Details Date Type Department Care Team (Late st Contact Info) Description 04/18/2021 [facility] [address] [place] [address] Kaitlynn Christianson MD [address] [place] [address] Medication Refill Social History Tobacco [...] 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 Kaitlynn Christianson MD Upcoming Appointments Future Appointments In 1 month And[facility] In 2 months Dami Santamaria MD [facility] Oncology Services, [facility] In 2 months [facility] CC INFUSION CHR1 [facility] In 2 months Kaitlynn Christianson MD [facility] In 8 Erik Fernandez MD [facility] WOUND CARE COORDINATOR - Recent and Past Visits Recent Visits Date Type Provider Dept 02/08/21 Office Visit Kaitlynn Christianson MD [facility] 12/17/20 Office Visit Kaitlynn Christianson MD [facility] 06/17/20 Telemedicine Kaitlynn Christianson MD [facility] Showing recent visits within past 460 days with a meds authorizing provider and meeting all other requirements Future Appointments Date Type Provider Dept 06/24/21 Appointment Kaitlynn Christianson MD [facility] Showing future appointments within next 90 [...] Dept 02/08/21 Office Visit Kaitlynn Christianson MD [facility] 12/17/20 Office Visit Kaitlynn Christianson MD [facility] 06/17/20 Telemedicine Kaitlynn Christianson MD [facility] Showing recent visits within past 365 days and meeting all other requirements Future Appointments Date Type Provider Dept 06/15/21 Appointment David Escamilla [facility] 06/24/21 Appointment Kaitlynn Christianson MD [facility] Showing future appointments within next 90 [...] Dept 02/08/21 Office Visit K[facility]lynn Christianson MD [facility] 12/17/20 Office Visit Kaitlynn Christianson MD [facility] 06/17/20 Telemedicine Kaitlynn Christianson MD [facility] Showing recent visits within past 365 days and meeting all other requirements Future Appointments Date Type Provider Dept 06/15/21 Appointment [place] [facility] 06/24/21 Appointment Kaitlynn Christianson MD [facility] Showing future appointments within next 90 [...] Dept 02/08/21 Office Visit Kaitlynn Christianson MD [facility] 12/17/20 Office Visit Kaitlynn Christianson MD [facility] 06/17/20 Telemedicine Kaitlynn Christianson MD [facility] Showing recent visits within past 365 days and meeting all other requirements Future Appointments Date Type Provider Dept 06/15/21 Appointment Andi David [facility] [address] 06/24/21 Appointment Kaitlynn Christianson MD [facility] Showing future appointments within next 90 days and meeting all other requirements Passed - Normal TSH in past 12 months TSH Date Value Ref Range Status 12/10/2020 1.520 0.270 - 4.200 mIU/L Final STONE POLISHER documented in this encounter Plan of Treatment Upcoming Encounters Date Type Department Care Team (Late st Contact Info) Description 02/19/2025 9:20 AM CDT Office Visit [facility] Oncology Services [address] [place] [address] Dami Santamaria MD [address] [place] [address] Discharge Disposition: Discharged to home or Selfcare 02/19/2025 9:30 AM CDT Clinical Support [facility] Oncology Services [address] [place] [address] Dami Santamaria MD [address] [place] [address] Discharge Disposition: Discharged to home or Selfcare 07/02/2025 2:30 PM HAND STONE POLISHER Office Visit [facility] Medical [facility] - Family Medicine [facility] [address] [place] [address] Kay Cabrales, VALENTIN [address] [place] [address] documented as of this encounter Visit Diagnoses Diagnosis Fibromyalgia Mylagia and myositis, unspecified Essential hypertension Unspecified essential hypertension Acquired hypothyroidism Unspecified hypothyroidism documented in this encounter Additional Health Concerns Assessment Noted Time PHQ-9 Depression Total Score: 0 04/03/20 19 10:00 AM HAND STONE POLISHER documented as of this encounter Care Teams Mechanical Design Technician Relationship Specialty Start Date End Date Kaitlynn Christianson MD PCP - General Family Medicine 03/07/15 05/09/22 Ana Theodore MD [address] [address] PCP - General Family Medicine 05/10/22 08/05/23 Kay Cabrales PAC [address] [place] [address] PCP - General Physician Music Pastor 08/06/23 Dami Santamaria MD Consulting Physician Hematology 08/21/16 Erik Pathak MD Consulting Physician Radiation Oncology 09/22/16 Christiano Gregory MD [address] [phone] Consulting Physician Endocrinology 01/10/22 Eyad Regalado MD [address] [address] Consulting Physician Colon and Rectal Surgery 04/02/24 documented as of this encounter
--- OUTSIDE RECORDS SUMMARY | 2025-01-09 02:59 | XMS_ITS | Encounter Summary ---
Author Organization [facility] Address [address] [place] [address] Phone Care Team Providers Care Machine Design Teacher Name Role Phone Dami Rodriguez MD Unavailable [phone] Erik Pathak MD Unavailable [phone] Christiano Gregory MD Unavailable Ana Theodore MD Primary Care Provider Kay Cabrales Primary Care Provider + Eyad Regalado MD Unavailable Reason for Visit * Reason Comments Medication Refill Encounter Details Date Type Department Care Team (Late st Contact Info) Description 07/10/2022 Refill [facility] Medical Oncology [address] [place] [address] Dami Rodriguez MD [address] [place], [place] [id number] Medication Refill Social History Tobacco Use Types [...] 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 No / Unsure 06/25/2022 7:21 PM SUPERINTENDENT FISH HATCHERY documented as of this encounter Miscellaneous Notes * Telephone Encounter - Nora Miles RN - 07/10/2022 9:01 AM CST Refilled letrozole per dr rodriguez note 02/16/22 RINTENDENT FISH HATCHERY documented in this encounter Plan of Treatment Upcoming Encounters Date Type Department Care Team (Late st Contact Info) Description 02/19/2025 9:20 AM CDT Office Visit [facility] Oncology Services [address] [place] [phone] Dami Rodriguez MD [address] [place] [address] Discharge Disposition: Discharged to home or Selfcare 02/19/2025 9:30 AM CDT Clinical Support [facility] [place] [facility] [address] [place] [address] Dami Rodriguez MD [address] [place] [address] Discharge Disposition: Discharged to home or Selfcare 07/02/2025 2:30 PM SUPERINTENDENT FISH HATCHERY Office Visit [facility] Medical Group - Family [facility] [address] [place] [address] Kay Cabrales, PAC [address] [place] [address] documented as of this encounter Visit Diagnoses Diagnosis Malignant neoplasm of lower-outer quadrant of right female breast (HCC) Malignant neoplasm of lower-outer quadrant of female breast documented in this encounter Additional Health Concerns Assessment Noted Time PHQ-9 Depression Total Score: 0 05/10/20 1:00 PM SUPERINTENDENT FISH HATCHERY documented as of this encounter Care Teams Machine Design Teacher Relationship Specialty Start Date End Date Ana Theodore MD [address] [address] PCP - General Family Medicine 05/10/22 08/05/23 Kay Cabrales PAC [address] [place] [address] PCP - General Physician Washer Engineer 08/06/23 Dami Rodriguez MD Consulting Physician Hematology 08/21/16 Erik Pathak MD Consulting Physician Radiation Oncology 09/22/16 Christiano Gregory MD [address] [address] Consulting Physician Endocrinology 01/10/22 Eyad Regalado MD [address] [address] Consulting Physician Colon and Rectal Surgery 04/02/24 documented as of this encounter
--- OUTSIDE RECORDS SUMMARY | 2025-01-09 02:59 | XMS_ITS | Encounter Summary ---
Author Organization [facility] Address [address] [place] [address] Phone Care Team Providers Care Hospital Fellow Name Role Phone Kaitlynn Christianson MD Primary Care Provider Dami Santamaria MD Unavailable [phone] Erik Pathak MD Unavailable [phone] Ct, [facility] Unavailable Sharon vailable Christiano Gregory MD Unavailable Ana Theodore MD Primary Care Provider Kay Cabrales Primary Care Provider + Eyad Regalado MD Unavailable Reason for Visit * Reason Comments Medication Refill Encounter Details Date Type Department Care Team (Late st Contact Info) Description 10/26/2020 [facility] [address] [place] [address] Dami Santamaria MD [address] [place] [address] Medication Refill Social History Tobacco [...] 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 on [...] Description 02/19/2025 9:20 AM CDT Office Visit [facility] Oncology Services [address] [place] [address] Dami Santamaria MD [address] [place] [address] Discharge Disposition: Discharged to home or Selfcare 02/19/2025 9:30 AM CDT Clinical Support [facility] Oncology Services [address] [place] [address] Dami Santamaria MD [address] [place] [address] Discharge Disposition: Discharged to home or Selfcare 07/02/2025 2:30 PM DISPATCHER BUS AND TROLLEY Office Visit [facility] Medical Group - Family Medicine - [place] [address] [place] [address] Kay Cabrales, PAC [address] [place] [address] documented as of this encounter Visit Diagnoses Diagnosis Malignant neoplasm of lower-outer quadrant of right female breast (HCC) Malignant neoplasm of lower-outer quadrant of female breast documented in this encounter Additional Health Concerns Assessment Noted Time PHQ-9 Depression Total Score: 0 04/03/20 19 10:00 AM DISPATCHER BUS AND TROLLEY documented as of this encounter Care Teams Hospital Fellow Relationship Specialty Start Date End Date Kaitlynn Christianson MD PCP - General Family Medicine 03/07/15 05/09/22 Ana Theodore MD [address] [phone] PCP - General Family Medicine 05/10/22 08/05/23 Kay Cabrales, VALENTIN [address] [place] [address] PCP - General Physician Mold Runner 08/06/23 Dami Santamaria MD Consulting Physician Hematology 08/21/16 Erik Pathak MD Consulting Physician Radiation Oncology 09/22/16 Ct, [facility] [employer] 12/13/19 12/15/20 Christiano Gregory MD [address] [phone] Consulting Physician Endocrinology 01/10/22 Eyad Regalado MD [address] [address] Consulting Physician Colon and Rectal Surgery 04/02/24 documented as of this encounter
--- OUTSIDE RECORDS SUMMARY | 2025-01-09 02:59 | XMS_ITS | Encounter Summary ---
Author Organization [facility] Address [address] [place] [address] Phone Care Team Providers Care Preparing Box Tender Name Role Phone Kaitlynn Christianson MD Primary Care Provider [phone] Dami Santamaria MD Unavailable [phone] Erik Pathak MD Unavailable [phone] Christiano Gregory MD Unavailable Ana Theodore MD Primary Care Provider Kay Cabrales Primary Care Provider + Eyad Regalado MD Unavailable Reason for Visit * Reason Comments Medication Refill Encounter Details Date Type Department Care Team (Late st Contact Info) Description 04/11/2022 Refill [facility] Group - Primary Care - [place] [address] [place] [address] Kaitlynn Christianson MD [address] [place] [address] Medication Refill Social History Tobacco [...] 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 [...] Dept 12/26/21 Office Visit Kaitlynn Christianson MD [facility] 06/28/21 Office Visit Kaitlynn Christianson MD [facility] Showing recent visits within past 365 days and meeting all other requirements Future Appointments Date Type Provider Dept 05/10/22 Appointment Ana Theodore MD [facility] 06/21/22 Appointment Lab, [facility] 06/29/22 Appointment Kaitlynn Christianson MD [facility] Showing future appointments within next 90 [...] Dept 12/26/21 Office Visit Kaitlynn Christianson MD [facility] [employer] [facility] 06/28/21 Office Visit Kaitlynn Christianson MD [facility] [employer] [facility] Showing recent visits within past 365 days and meeting all other requirements Future Appointments Date Type Provider Dept 05/10/22 Appointment Ana Theodore MD [facility] 06/21/22 Appointment Lab, [employer] [facility] [employer] [facility] 06/29/22 Appointment Kaitlynn Christianson MD [facility] [employer] [facility] Showing future appointments within next 90 days [...] Dept 12/26/21 Office Visit Kaitlynn Christianson MD [facility] [employer] [facility] 06/28/21 Office Visit Kaitlynn Christianson MD [facility] [employer] [facility] Showing recent visits within past 365 days and meeting all other requirements Future Appointments Date Type Provider Dept 05/10/22 Appointment Ana Theodore MD [facility] 06/21/22 Appointment Lab, [place] [facility] [employer] 06/29/22 Appointment Kaitlynn Christianson MD [facility] [employer] [facility] Showing future appointments within next 90 days [...] Dept 12/26/21 Office Visit Kaitlynn Christianson MD [facility] 06/28/21 Office Visit Kaitlynn Christianson MD [facility] Showing recent visits within past 365 days and meeting all other requirements Future Appointments Date Type Provider Dept 05/10/22 Appointment Ana Theodore MD [facility] 06/21/22 Appointment Andi Radha [facility] [address] 06/29/22 Appointment Kaitlynn Christianson MD [facility] Showing future appointments within [...] Range Status 12/16/2021 121.7 <130 mg/dL Final TRIC WELDER documented in this encounter Plan of Treatment Upcoming Encounters Date Type Department Care Team (Late st Contact Info) Description 02/19/2025 9:20 AM CDT Office Visit [facility] Oncology Services [address] [place] [address] Dami Santamaria MD [address] [place] [address] Discharge Disposition: Discharged to home or Selfcare 02/19/2025 9:30 AM CDT Clinical Support [facility] Oncology Services [address] [place] [address] Dami Santamaria MD [address] [place] [address] Discharge Disposition: Discharged to home or Selfcare 07/02/2025 2:30 PM ELECTRIC WELDER Office Visit [facility] [address] [place] [address] Kay Cabrales, PAC [address] [place] [address] documented as of this encounter Visit Diagnoses Diagnosis Acquired hypothyroidism Unspecified hypothyroidism Essential hypertension Unspecified essential hypertension Fibromyalgia Mylagia and myositis, unspecified documented in this encounter Additional Health Concerns Assessment Noted Time PHQ-9 Depression Total Score: 0 04/03/20 19 10:00 AM ELECTRIC WELDER documented as of this encounter Care Teams Preparing Box Tender Relationship Specialty Start Date End Date Kaitlynn Christianson MD PCP - General Family Medicine 03/07/15 05/09/22 Ana Theodore MD [address] [address] PCP - General Family Medicine 05/10/22 08/05/23 Kay Cabrales, VALENTIN [address] [place] [address] PCP - General Physician Material Loader 08/06/23 Dami Santamaria MD Consulting Physician Hematology 08/21/16 Erik Pathak MD Consulting Physician Radiation Oncology 09/22/16 Christiano Gregory MD [address] [address] Consulting Physician Endocrinology 01/10/22 Eyad Regalado MD [address] [address] Consulting Physician Colon and Rectal Surgery 04/02/24 documented as of this encounter
--- OUTSIDE RECORDS SUMMARY | 2025-01-09 02:59 | XMS_ITS | Encounter Summary ---
Author Organization [facility] Address [address] [place] [address] Phone Care Team Providers Care Material Disposition Inspector Name Role Phone Dami Santamaria MD Unavailable [phone] Erik Pathak MD Unavailable [phone] Christiano Gregory MD Unavailable Kay Cabrales Primary Care Provider + Eyad Regalado MD Unavailable Reason for Visit * Reason Comments Medication Refill Encounter Details Date Type Department Care Team (Late st Contact Info) Description 10/05/2023 Refill [facility] Medical Group - Primary Care - [place] [address] [place] [address] [place] [address] [place] [address] Medication Refill Social History Tobacco Use Types Packs/Day Years Used Date Smoking Tobacco: Never Smokeless Tobacco: Never Alcohol Use Standard Drinks/Week Comments Yes 0 (1 standard drink = 0.6 oz pur e alcohol) Occasionally. [facility] Utilities Answer Date Recorded In the past 12 months has [employer] electric, gas, oil, or water company threatened [...] often do you attend chur ch or sikhism services? More than 4 times per year [...] Total Score - Questions 1-9 0 07/20 [facility] - Occupational Stress Questionnaire Answer Date [...] place to sleep or slept in a detention (including now)? 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 on file Not [...] [place] 02/08/23 Office Visit Ana Theodore MD [facility] [place] Showing recent visits within past 365 days [...] [place] 02/08/23 Office Visit Ana Theodore MD [facility] Showing recent visits within past 365 [...] [place] 02/08/23 Office Visit Ana Theodore MD [facility] [place] Showing recent visits within past 365 [...] [place] 02/08/23 Office Visit Ana Theodore MD [facility] [place] Showing recent visits within past 365 days and meeting all other requirements Future Appointments No visits were found meeting these conditions. Showing future appointments within next 90 days and meeting all other requirements documented in this encounter Plan of Treatment Upcoming Encounters Date Type Department Care Team (Late st Contact Info) Description 02/19/2025 9:20 AM CDT Office Visit [facility] Oncology Services [address] [place] [address] Dami Santamaria MD [address] [place] [address] Discharge Disposition: Discharged to home or Selfcare 02/19/2025 9:30 AM CDT Clinical Support [facility] Oncology Services [address] [place] [address] Dami Santamaria MD [address] [place] [address] Discharge Disposition: Discharged to home or Selfcare 07/02/2025 2:30 PM [place] Office Visit [facility] [address] [place] [address] Kay Cabrales PAC [address] [place] [address] documented as of this encounter Visit Diagnoses Diagnosis Fibromyalgia Mylagia and myositis, unspecified Acquired hypothyroidism Unspecified hypothyroidism Essential hypertension Unspecified essential hypertension documented in this encounter Additional Health Concerns Assessment Noted Time PHQ-9 Depression Total Score: 0 08/09/19 24 9:04 AM CDT documented as of this encounter Care Teams Material Disposition Inspector Relationship Specialty Start Date End Date Kay Cabrales PAC [address] [place] [address] PCP - General Physician Product Owner 08/06/23 Dami Santamaria MD Consulting Physician Hematology 08/21/16 Erik Pathak MD Consulting Physician Radiation Oncology 09/22/16 Christiano Gregory MD [address] [address] Consulting Physician Endocrinology 01/10/22 Eyad Regalado MD [address] [place] [address] Consulting Physician Colon and Rectal Surgery 04/02/24 documented as of this encounter
--- OUTSIDE RECORDS SUMMARY | 2025-01-09 02:59 | XMS_ITS | Encounter Summary ---
Author Organization [facility] Address [address] [place] [address] Phone Care Team Providers Care Director Biostatistics Name Role Phone Dami Santamaria MD Unavailable [phone] Erik Pathak MD Unavailable [phone] Christiano Gregory MD Unavailable Ana Theodore MD Primary Care Provider [phone] Kay Cabrales Primary Care Provider + Eyad Regalado MD Unavailable Reason for Visit * Reason Comments Medication Refill Encounter Details Date Type Department Care Team (Late st Contact Info) Description 01/16/2023 Refill [facility] Medical Oncology [address] [place] [address] Dami Santamaria MD [address] [place], [place] [id number] Medication Refill Social History Tobacco Use Types [...] Description 02/19/2025 9:20 AM CDT [facility] [address] [place] [address] Dami Santamaria MD 0 [place] [address] Discharge Disposition: Discharged to home or Selfcare 02/19/2025 9:30 AM CDT Clinical Support [facility] Oncology Services [address] [place] [address] Dami Santamaria MD 0 [place] [address] Discharge Disposition: Discharged to home or Selfcare 07/02/2025 2:30 PM INTERLOCKING INSTALLER Office Visit [facility] [address] [place] [address] Kay Cabrales, [facility] [address] [place] [address] documented as of this encounter Visit Diagnoses Diagnosis Malignant neoplasm of lower-outer quadrant of right female breast (HCC) Malignant neoplasm of lower-outer quadrant of female breast documented in this encounter Additional Health Concerns Assessment Noted Time PHQ-9 Depression Total Score: 0 05/10/20 1:00 PM INTERLOCKING INSTALLER documented as of this encounter Care Teams Director Biostatistics Relationship Specialty Start Date End Date Ana Theodore MD [address] [address] PCP - General Family Medicine 05/10/22 08/05/23 Kay Cabrales PAC [address] [place] [address] PCP - General Physician Washer Off 08/06/23 Dami Santamaria MD Consulting Physician Hematology 08/21/16 Erik Pathak MD Consulting Physician Radiation Oncology 09/22/16 Christiano Gregory MD [address] [address] Consulting Physician Endocrinology 01/10/22 Eyad Regalado MD #[address] [address] Consulting Physician Colon and Rectal Surgery 04/02/24 documented as of this encounter
--- OUTSIDE RECORDS SUMMARY | 2025-01-09 02:59 | XMS_ITS ---
Author Organization [facility] Address [address], [facility] [address] [place] [address] Phone Care Team Providers Care Construction Project Coordinator Name Role Phone Dami Santamaria MD Unavailable [phone] Erik Pathak MD Unavailable [phone] Christiano Gregory MD Unavailable Kay Cabrales [facility] Primary Care Provider + Eyad Regalado MD [...] Clinical stage IIA (T2N0M0) ER/HER2 positive and [place] negative [place] grade 3 invasive ductal carcinoma of her right breast that received neoadjuvant dose dense AC x 4 followed by weekly paclitaxel plus Herceptin for 10 weeks with a complete response on both physical exam and radiographically that underwent breast conserving surgery including a 2nd procedure to re-excise the primary tumor bed with [id number] disease. In the partial mastectomy specimen there [...] swelling 12/10/2019 03/0 11/2020 Lymphocytosis 12/10/2019 06/17/2020 snf (current) use of a romatase inhibitors 09/28/2018 [...]
--- OUTSIDE RECORDS SUMMARY | 2025-01-09 02:59 | XMS_ITS | Encounter Summary ---
Author Organization [facility] Address [address] [place] [address] Phone Care Team Providers Care General Service Officer Name Role Phone Dami Santamaria MD Unavailable [phone] Erik Pathak MD Unavailable [phone] Christiano Gregory MD Unavailable Ana Theodore MD Primary Care Provider Kay Cabrales Primary Care Provider + Eyad Regalado MD Unavailable Reason for Visit * Reason Comments Medication Refill Encounter Details Date Type Department Care Team (Late st Contact Info) Description 10/04/2022 Refill [facility] P[facility] Medical Oncology [address] [place] [address] Dami Santamaria MD [address] [place], [place] [id number] Medication Refill Social History Tobacco Use Types [...] 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 Not [...] Description 02/19/2025 9:20 AM CDT [facility] [address] [place] [phone] Dami Santamaria MD [address] [place] [address] Discharge Disposition: Discharged to home or Selfcare 02/19/2025 9:30 AM CDT Clinical Support [facility] [address] [place] [address] Dami Santamaria MD 0 [place] [address] Discharge Disposition: Discharged to home or Selfcare 07/02/2025 2:30 PM METALLIC YARN SLITTING MACHINE OPERATOR Office Visit [facility] [address] [place] [address] Kay Cabrales, PAC [address] [place] [address] documented as of this encounter Visit Diagnoses Diagnosis Malignant neoplasm of lower-outer quadrant of right female breast (HCC) Malignant neoplasm of lower-outer quadrant of female breast documented in this encounter Additional Health Concerns Assessment Noted Time PHQ-9 Depression Total Score: 0 05/10/20 1:00 PM METALLIC YARN SLITTING MACHINE OPERATOR documented as of this encounter Care Teams General Service Officer Relationship Specialty Start Date End Date Ana Theodore MD [address] [address] PCP - General Family Medicine 05/10/22 08/05/23 Kay Cabrales, VALENTIN [address] [place] [address] PCP - General Physician Refurbish Technician 08/06/23 Dami Santamaria MD Consulting Physician Hematology 08/21/16 Erik Pathak MD Consulting Physician Radiation Oncology 09/22/16 Christiano Gregory MD [address] [address] Consulting Physician Endocrinology 01/10/22 Eyad Regalado MD [address] [address] Consulting Physician Colon and Rectal Surgery 04/02/24 documented as of this encounter
--- OUTSIDE RECORDS SUMMARY | 2025-01-09 02:59 | XMS_ITS | Clinical Summary ---
Author Organization [facility] [address] Address [address] [place] [address] Phone Care Team Providers Care Food Storeroom Clerk Name Role Phone Tess Phillips MD Unavailable [phone] Kaitlynn Christianson MD Primary Care Provider [phone] Allergies Active Allergy Reactions Criticality Noted Date [...] on file Legal Sex Female 2:01 AM SAWMILL OR TIMBER YARD WORKER Gender Identity Not on file Sexual Orientation [...] of Treatment Not on file Insurance [facility] [place] [employer] INSURANCE [employer] Member Subscriber Plan / Payer (Ef fective 2016-Present) Name:Lesli Su Relation to Subscriber:Self Name:Lesli Su Payer ID:[id number] Group ID:Not on file Type:COMMERCIAL Address: [address] [address] [facility] [place] [address] MEDICARE MEDICARE [employer] Care Teams Food Storeroom Clerk Relationship Specialty Start Date End Date Kaitlynn Christianson MD [address] [place] [address] PCP - General Family Practice 12/27/20 Tess Phillips MD [address] [place] [address] Obstetrics and Gynecology 11/17/16
--- OUTSIDE RECORDS SUMMARY | 2025-01-09 02:59 | XMS_ITS | Clinical Summary ---
Author Organization [facility] Address [address], [facility] [address] [place] [address] Phone Care Team Providers Care Editorial Manager Name Role Phone Dami Santamaria MD Unavailable [phone] Erik Pathak MD Unavailable [phone] Christiano Gregory MD Unavailable Kay Cabrales Primary [...] Clinical stage IIA (T2N0M0) ER/HER2 positive and [place] negative [place] grade 3 invasive ductal carcinoma of her right breast that received neoadjuvant dose dense AC x 4 followed by weekly paclitaxel plus Herceptin for 10 weeks with a complete response on both physical exam and radiographically that underwent breast conserving surgery including a 2nd procedure to re-excise the primary tumor bed with [id number] disease. In the partial mastectomy specimen there [...] swelling 12/10/2019 03/0 11/2020 Lymphocytosis 12/10/2019 06/17/2020 care home (current) use of a romatase inhibitors 09/28/2018 [...] Description 12/22/2024 2:15 PM CDT Office Visit [facility] [address] [place] [address] Kay Cabrales, VALENTIN Essential hypertension (Primary Dx); Tachycardia; Prediabetes Discharge Disposition: Discharged to home or Selfcare 12/20/2024 Travel 12/17/2024 10:50 AM CDT - 12/17/2024 11:59 PM CDT [facility] [address] [place] [address] Kay Cabrales PAC Discharge Disposition: Discharged to home or Selfcare 12/17/2024 Travel 12/16/2024 [facility]ill [facility] [place] [address] [place] [address] Kay Cabrales PAC Medication Refill 12/08/2024 Patient Outreach [facility] [address] [place] [address] Nancy Goldman Care Management 12/03/2024 10:27 AM CDT - 12/03/2024 11:59 PM CDT [facility] [address] [place] [address] Dami Santamaria MD Discharge Disposition: Discharged to home or Selfcare 12/02/2024 Travel 11/19/2024 9:40 AM CDT - 11/19/2024 11:59 PM CDT [facility] [address] [place] [address] Dami Santamaria MD Discharge Disposition: Discharged to home or Selfcare 11/17/2024 Travel 11/11/2024 Results Follow-Up [facility] [address] [place] [address] Kay Cabrales, PAC ADULT TRANS THORACIC ECHO 2D COMPLETE, EKG 12 LEAD 11/05/2024 3:56 PM CDT - 11/05/2024 11:59 PM CDT Hospital Encounter [facility] Cardiology Services [address] [place] [address] Kay Cabrales, PAC Discharge Disposition: Discharged to [...] Domie Zimmer Stroke Maternal Aunt 3 Tiffanie Flroian Cancer Maternal Grandfather Bahman Saunders Gall Bl [...] = 0.6 oz pur e alcohol) Occasionally. [facility] Utilities Answer Date Recorded In the past 12 months has [employer] electric, gas, oil, or water company threatened [...] often do you attend chur ch or adventism services? More than 4 times per year 09/17/2024 Do you belong to any clubs o r organizations such as confucianism groups, unions, fraternal or athletic groups, or [...] Score - Questions 1-9 0 05/0 06/2024 [facility] - Occupational Stress [...] place to sleep or slept in a prison (including now)? No 08/07/2023 Housing Stability Vital Sign Answer [place] e Recorded In the last 12 months, was t here a time when you were not able to pay the mortgage or rent on time? No 09/17/2024 Number of Times Moved in the Last Year Not on fi le 09/17/2024 At any time in the past 12 m [facility], were you homeless or living in a prison (including now)? 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 Medical [facility] - Family [facility] [address] [place] [address] Kay Cabrales, PAC [address] [place] [address] Health Maintenance Due Date Last Done Comments [...] this topic Medical Devices Implanted Type Area Steam Tunnel Feeder Device Identifier Shelf Expiration Date Model / Serial / Lot Port [employer]. Implanted W/Sut Plugs 8fr - [id number] Implanted:Qty : 1 on 03/17/2016 by Kirby Farmer MD at [facility] IMPLANT Right: Chest Wall CR BARD / BARD BIOPSY 06/17/2017 [id number] / / [id number] Procedures Procedure Name Priority Date/Time Associated Diagnosis Comments POCT GLYCOSYLATED HEMOGLOBIN Routine 12/22/2024 2:56 PM CDT Prediabetes EKG 12 LEAD Routine 12/17/2024 11:01 AM CDT Tachycardia CMP (COMPREHENSIVE METABOLIC PANEL) Routine 12/17/2024 10:53 AM CDT Malignant neoplasm of lower-outer quadrant of right breast of female, estrogen receptor positive (HCC) [facility] SCREENING BILATERAL DIGITAL W CAD W [...] DENSITOMETRY AXIAL SKELETON Routine 07/05/2023 2:08 PM AIRCRAFT ENGINE INSTALLER Malignant neoplasm of lower-outer quadrant of right [...] QTC CALCULATION 449 ms EXTERNAL EKG P [place] 46 degrees EXTERNAL EKG R [place] -22 degrees EXTERNAL EKG T [place] 26 degrees EXTERNAL EKG 12/17/2024 11:0 1 AM CDT Impressions EXTERNAL EKG - 12/23/2024 10:38 AM CDT Normal sinus rhythm Minimal voltage criteria for LVH, may be normal variant ( R in aVL ) Borderline ECG When compared with ECG of 15-MAR-2016 12:45, No significant change was found Confirmed by BONI MELÉNDEZ ([id number]) on 12/23/2024 10:38:30 AM Narrative Procedure Note Boni Meléndez MD - 12/23/2024 IMPRESSION: Normal sinus rhythm Minimal voltage criteria for LVH, may be normal variant ( R in aVL ) Borderline ECG When compared with ECG of 15-MAR-2016 12:45, No significant change was found Confirmed by BONI MELÉNDEZ ([id number]) on 12/23/2024 10:38:30 AM Rachel Keron PAC IMG ECG ORDERABLES Final Result EXTERNAL EKG * (ABNORMAL) CMP (COMPREHENSIVE METABOLIC PANEL) (12/17/2024 10:53 AM CDT) SODIUM 140 136 - 145 mmol/L 12/17/2024 1:05 PM CDT [facility] POTASSIUM 4.3 3.5 - 5.1 mmol/L 12/17/2024 1:05 PM CDT [facility] CHLORIDE 106 98 - 107 mmol/L 12/17/2024 1:05 PM CDT [facility] CO2, VENOUS 25 22 - 30 mmol/L 12/17/2024 1:05 PM [facility] ANION GAP 13.3 <18.0 mmol/L 12/17/2024 1:05 PM [facility] GLUCOSE 110(H) 70 - 99 mg/dL 12/17/2024 1:05 PM [facility] BUN 11 10 - 20 mg/dL 12/17/2024 1:05 PM [facility] CREATININE, BLOOD 0.83 0.60 - 1.00 mg/dL 12/17/2024 1:05 PM [facility] BUN/CREATININE RATIO 13 12 - 20 ratio 12/17/2024 1:05 PM [facility] TOTAL PROTEIN 7.6 6.0 - 8.0 g/dL 12/17/2024 1:05 PM [facility] ALBUMIN 4.6 3.5 - 5.0 g/dL 12/17/2024 1:05 PM [facility] A/G RATIO 1.5 1.0 - 2.2 12/17/2024 1:05 PM [facility] CALCIUM 9.4 8.7 - 10.5 mg/dL 12/17/2024 1:05 PM [facility] T BILI 0.5 0.2 - 1.2 mg/dL 12/17/2024 1:05 PM [facility] SGOT (AST) 32 <43 U/L 12/17/2024 1:05 PM [facility] SGPT (ALT) 24 <56 U/L 12/17/2024 1:05 PM [facility] ALKALINE PHOSPHATASE 43 40 - 150 U/L 12/17/2024 1:05 PM [facility] IS THE PATIENT REQUIRED TO BE FASTING? No 12/17/2024 1:05 PM [facility] GFR, ESTIMATED >60 >=60 12/17/2024 1:05 PM [facility] Comment: Creatinine Clearance is the preferred criteria for selecting drug dose adjustments in renally impaired patients. The GFR is provided as additional pertinent clinical information. GFR is reported in mL/min/1.73 sq m. Calculation based on the Chronic Kidney Disease Epidemiology Collaboration (CKD- EPI) equation refit without adjustment for race. GFR, EST. >60 >=60 025 1:05 PM CDT [facility] GFR, EST. NONAFRICAN >60 >=60 12/17/2024 1:05 PM CDT [facility] Blood Venipuncture / Unknown 12/17/2024 10:53 AM CDT 12/17/2024 12:38 PM CDT us Dami Santamaria MD CHEMISTRY ORDERABLES Fin al Result [facility] [address] [place] [address] * STEVE SCREENING BILATERAL DIGITAL W CAD [...] to exams dated: 11/28/2023, 11/15/2022, and 11/15/2021 [facility]. BREAST TISSUE:There are scattered areas of fibroglandular [...] signed by: Arnav Wilson M.D. ll/penrad:12/03/2024 15:59:06 Hydrographical Technical Officer(s): RT Jeaneth(R)(M), [facility] letter sent: Normal Exam Reading location: [...] to exams dated: 11/28/2023, 11/15/2022, and 11/15/2021 [facility]. BREAST TISSUE:There are scattered areas of fibroglandular [...] exam. Electronically signed by: Arnav vásquez/penrad:12/03/2024 15:59:06 Hydrographical Technical Officer(s): RT Jeaneth(R)(M), [facility] letter sent: Normal Exam Reading location: [...] Kenneth Bay M.D. AM: AM Report ID: [id number] Reading Location: [id number] Procedure Note Kenneth Bay MD - 12/02/2024 [...] Kenneth Bay M.D. AM: AM Report ID: [id number] Reading Location: [id number] IMPRESSION: Enlarged left para-aortic lymph node measuring 1.3 x 2.0 cm, previously 1.3 x 1.8 cm. Nonobstructing 5 mm calculus in the interpolar region of the left kidney. us Dami Santamaria MD IMG CT ORDERABLES Final Result * POCT Creatinine (11/19/2024 9:54 AM CDT) [facility] CREATININE - POCT 1.0 0.6 - 1.3 mg/dL 11/19/2024 9:55 AM CDT [facility] Blood 11/19/2024 9:54 AM CDT 11/19/2024 9:55 AM CDT us None Provider POINT OF CARE TESTING Final Resu lt [facility] [address] [place] [address] * ADULT TRANS THORACIC ECHO 2D COMPLETE (11/05/2024 5:06 PM CDT) [facility] AV Peak Grad mmHg 5.86 mmHg RESULTING AGENCY Mean Aortic Valve Gradient (MAVG) 4 mmHg RESULTING AGENCY LV end freddie diam cm 3.4 cm RESULTING AGENCY LV [...] LISSETT Lou Reanna 1950 Patient ID (UPI) [id number] Indications: Tachycardia. Study Date11/05/2024 Technical quality: Limited [...] lbs. BMI (BSA) 28.36 kg/m^2 (1.67 m^2) Metal Handler Gloria Morgan Referring Physician Diamond Physician Medhat Sharpe Procedure Note Boni Meléndez MD - 11/06/2024 Transthoracic Echocardiography Report (TTE) Patient name LISSETT Lou Reanna 1950 Patient ID (UPI) [id number] Indications: Tachycardia. Study Date11/05/2024 Technical quality: Limited [...] lbs. BMI (BSA) 28.36 kg/m^2 (1.67 m^2) Metal Handler Gloria Morgan Referring Physician Diamond Physician Medhat Sharpe Kay Tapia Keron PAC IMG ECHO ORDERABLES Edit ed Result - Final * [facility] BONE DENSITOMETRY AXIAL SKELETON (07/05/2023 2:08 PM AIRCRAFT ENGINE INSTALLER) Anatomical Region Laterality Modality BODY N/A Computed Radiogr aphy 07/05/2023 2:33 PM AIRCRAFT ENGINE INSTALLER Impressions 07/05/2023 2:35 PM AIRCRAFT ENGINE INSTALLER IMPRESSION: Low Bone Mass. REFERENCE: Bone mineral [...] of Osteoporosis (http://www.nof.org/professionals/clinical-guidelines) Narrative 07/05/2023 2:35 PM AIRCRAFT ENGINE INSTALLER EXAM DESCRIPTION: [facility] BONE DENSITOMETRY AXIAL SKELETON REASON FOR STUDY: 72 year old postmenopausal female with given history of: Malignant neoplasm of lower-outer quadrant of right breast of female, estrogen receptor positive , Osteopenia due to cancer therapy, Other specified disorders of bone density and structure, multiple sites Steam Tunnel Feeder/Model: [employer] (S/N [id number]) CLINICAL INFORMATION: Current height: 61 inches Maximum [...] Omari Hannon M.D. RB: IFTIKHAR Report ID: [id number] Reading Location: [id number] Procedure Note Omari Hannon MD - 07/05/2023 EXAM DESCRIPTION: [facility] BONE DENSITOMETRY AXIAL SKELETON REASON FOR STUDY: 72 year old postmenopausal female with given history of: Malignant neoplasm of lower-outer quadrant of right breast of female, estrogen receptor positive , Osteopenia due to cancer therapy, Other specified disorders of bone density and structure, multiple sites Steam Tunnel Feeder/Model: [employer] (S/N [id number]) CLINICAL INFORMATION: Current height: 61 inches Maximum [...] Omari Hannon M.D. RB: IFTIKHAR Report ID: [id number] Reading Location: [place] [address] IMPRESSION: Low Bone Mass. REFERENCE: Bone mineral [...] to Prevention and Treatment of Osteoporosis (http://www.nof.org/professionals/clinical-guidelines) [facility] Kimberyl Santamaria MD IMG DEXA ORDERABLES Greta l Result from Last 3 Months or Most Recently Relevant to Health Maintenance Insurance MEDICARE COMMERCIAL GENERIC Care Teams Editorial Manager Relationship Specialty Start Date End Date Kay Cabrales PAC [address] [place] [address] PCP - General Physician Insurance Investigator 08/06/23 Dami Santamaria MD Consulting Physician Hematology 08/21/16 Erik Pathak MD Consulting Physician Radiation Oncology 09/22/16 Christiano Gregory MD [address] [address] Consulting Physician Endocrinology 01/10/22 Eyad Regalado MD #[address] [address] Consulting Physician Colon and Rectal Surgery 04/02/24
--- OUTSIDE RECORDS SUMMARY | 2025-01-09 02:59 | XMS_ITS | Encounter Summary ---
Author Organization [facility] Address [address] [place] [address] Phone Care Team Providers Care Time Analysis Clerk Name Role Phone Dami Santamaria MD Unavailable Erik Pathak MD Unavailable [phone] Christiano Gregory MD Unavailable Ana Theodore MD Primary Care Provider Kay Cabrales Primary Care Provider + Eyad Regalado MD Unavailable Reason for Visit * Reason Comments Medication Refill Encounter Details Date Type Department Care Team (Late st Contact Info) Description 10/04/2022 Refill [facility] - Primary Care - [address] [place] [address] [place] [address] [place] [address] Medication Refill Social History Tobacco [...] 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 Not on [...] Isaias 12/26/21 Office Visit Kaitlynn Christianson MD [facility] Showing recent visits within past 365 [...] [place] 12/26/21 Office Visit Kaitlynn Christianson MD [facility] Showing recent visits within past 365 [...] [place] 12/26/21 Office Visit Kaitlynn Christianson MD [facility] Showing recent visits within past 365 [...] [place] 12/26/21 Office Visit Kaitlynn Christianson MD [facility] Showing recent visits within past 365 [...] 02/19/2025 9:20 AM CDT Office Visit [facility] Oncology Services [address] [place] [address] Dami Santamaria MD [address] [place] [address] Discharge Disposition: Discharged to home or Selfcare 02/19/2025 9:30 AM CDT Clinical Support [facility] [address] [place] [address] Dami Santamaria MD [address] [place] [address] Discharge Disposition: Discharged to home or Selfcare 07/02/2025 2:30 PM RELIGIOUS RITUAL SLAUGHTERER Office Visit [facility] - Family [facility] [place] [address] [place] [address] Kay Cabrales, PAC [address] [place] [address] documented as of this encounter Visit Diagnoses Diagnosis Acquired hypothyroidism Unspecified hypothyroidism Fibromyalgia Mylagia and myositis, unspecified Essential hypertension Unspecified essential hypertension documented in this encounter Additional Health Concerns Assessment Noted Time PHQ-9 Depression Total Score: 0 05/10/20 1:00 PM RELIGIOUS RITUAL SLAUGHTERER documented as of this encounter Care Teams Time Analysis Clerk Relationship Specialty Start Date End Date Ana Theodore MD [address] [address] PCP - General Family Medicine 05/10/22 08/05/23 Kay Cabrales, PAC [address] [place] [address] PCP - General Physician Social Work Msw 08/06/23 Dami Santamaria MD Consulting Physician Hematology 08/21/16 Erik Pathak MD Consulting Physician Radiation Oncology 09/22/16 Christiano Gregory MD [address] [address] Consulting Physician Endocrinology 01/10/22 Eyad Regalado MD [address] [address] Consulting Physician Colon and Rectal Surgery 04/02/24 documented as of this encounter
--- OUTSIDE RECORDS SUMMARY | 2025-01-09 02:59 | XMS_ITS | Encounter Summary ---
Author Organization [facility] Address [address] [place] [address] Phone Care Team Providers Care Tar Heater Name Role Phone Dami Santamaria MD Unavailable [phone] Erik Pathak MD Unavailable [phone] Christiano Gregory MD Unavailable Ana Theodore MD Primary Care Provider Kay Cabrales Primary Care Provider + Eyad Regalado MD Unavailable Reason for Visit * Reason Comments Medication Refill Encounter Details Date Type Department Care Team (Late st Contact Info) Description 07/10/2022 Refill [facility] - Primary Care - [address] [place] [address] Kaitlynn Christianson MD [address] [place] [address] Medication Refill Social History Tobacco [...] 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 No / Unsure 06/25/2022 7:21 PM TACO MAKER documented as of this encounter Miscellaneous Notes [...] [place] 12/26/21 Office Visit Kaitlynn Christianson MD [facility] Showing recent visits within past [...] [place] 12/26/21 Office Visit Kaitlynn Christianson MD [facility] Showing recent visits within past [...] [place] 12/26/21 Office Visit Kaitlynn Christianson MD [facility] Showing recent visits within past [...] [place] 12/26/21 Office Visit Kaitlynn Christianson MD [facility] Showing recent visits within past [...] Range Status 06/21/2022 126.3 <130 mg/dL Final MAKER documented in this encounter Plan of Treatment Upcoming Encounters Date Type Department Care Team (Late st Contact Info) Description 02/19/2025 9:20 AM CDT Office Visit [facility] Oncology Services [address] [place] [address] Dami Santamaria MD [address] [place] [address] Discharge Disposition: Discharged to home or Selfcare 02/19/2025 9:30 AM CDT Clinical Support [facility] Oncology Services [address] [place] [address] Dami Santamaria MD [address] [place] [address] Discharge Disposition: Discharged to home or Selfcare 07/02/2025 2:30 PM TACO MAKER Office Visit [facility] Medical [facility] - [facility] [address] [place] [address] Kay Cabrales, PAC [address] [place] [address] documented as of this encounter Visit Diagnoses Diagnosis Essential hypertension Unspecified essential hypertension Acquired hypothyroidism Unspecified hypothyroidism Fibromyalgia Mylagia and myositis, unspecified documented in this encounter Additional Health Concerns Assessment Noted Time PHQ-9 Depression Total Score: 0 05/10/20 1:00 PM TACO MAKER documented as of this encounter Care Teams Tar Heater Relationship Specialty Start Date End Date Ana Theodore MD [address] [address] PCP - General Family Medicine 05/10/22 08/05/23 Kay Cabrales, PAC [address] [place] [address] PCP - General Physician Poll Clerk 08/06/23 Dami Santamaria MD Consulting Physician Hematology 08/21/16 Erik Pathak MD Consulting Physician Radiation Oncology 09/22/16 Christiano Gregory MD [address] [address] Consulting Physician Endocrinology 01/10/22 Eyad Regalado MD #[address] [address] Consulting Physician Colon and Rectal Surgery 04/02/24 documented as of this encounter
--- OUTSIDE RECORDS SUMMARY | 2025-01-09 02:59 | XMS_ITS | Encounter Summary ---
Author Organization [facility] Address [address] [place] [address] Phone Care Team Providers Care Material Analyst Name Role Phone Dami Santamaria MD Unavailable [phone] Erik Pathak MD Unavailable [phone] Christiano Gregory MD Unavailable Ana Theodore MD Primary Care Provider Kay Cabrales Primary Care Provider + Eyad Regalado MD Unavailable Reason for Visit * Reason Comments Medication Refill Encounter Details Date Type Department Care Team (Late st Contact Info) Description 04/10/2023 Refill [facility] - Primary Care - [address] [place] [address] [place] [address] [place] [address] Medication Refill Social History Tobacco [...] 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 on file [...] 90 days and meeting all other requirements TRICAL ENGINEERING INTERN documented in this encounter Plan of Treatment Upcoming Encounters Date Type Department Care Team (Late st Contact Info) Description 02/19/2025 9:20 AM CDT Office Visit [facility] Oncology Services [address] [place] [address] Dami Santamaria MD [address] [place] [address] Discharge Disposition: Discharged to home or Selfcare 02/19/2025 9:30 AM CDT Clinical Support [facility] Oncology Services [address] [place] [address] Dami Santamaria MD [address] [place] [address] Discharge Disposition: Discharged to home or Selfcare 07/02/2025 2:30 PM ELECTRICAL ENGINEERING INTERN Office Visit [facility] - Family Medicine - [place] [address] [place] [address] Kay Cabrales, [facility] [address] [place] [address] documented as of this encounter Visit Diagnoses Diagnosis Fibromyalgia Mylagia and myositis, unspecified Acquired hypothyroidism Unspecified hypothyroidism Essential hypertension Unspecified essential hypertension documented in this encounter Additional Health Concerns Assessment Noted Time PHQ-9 Depression Total Score: 0 05/10/20 1:00 PM ELECTRICAL ENGINEERING INTERN documented as of this encounter Care Teams Material Analyst Relationship Specialty Start Date End Date Ana Theodore MD [address] [address] PCP - General Family Medicine 05/10/22 08/05/23 Kay Cabrales PAC [address] [place] [address] PCP - General Physician Human Development Professor 08/06/23 Dmai Santamaria MD Consulting Physician Hematology 08/21/16 Erik Pathak MD Consulting Physician Radiation Oncology 09/22/16 Christiano Gregory MD [address] [address] Consulting Physician Endocrinology 01/10/22 Eyad Regalado MD #[address] [address] Consulting Physician Colon and Rectal Surgery 04/02/24 documented as of this encounter
--- OUTSIDE RECORDS SUMMARY | 2025-01-09 02:59 | XMS_ITS | Encounter Summary ---
Author Organization [facility] Address [address] [place] [address] Phone Care Team Providers Care Steam Brush Operator Name Role Phone Kaitlynn Christianson MD Primary Care Provider [phone] Dami Santamaria MD Unavailable [phone] Erik Pathak MD Unavailable [phone] Christiano Gregory MD Unavailable Ana Theodore MD Primary Care Provider Kay Cabrales Primary Care Provider + Eyad Regalado MD Unavailable Reason for Visit * Reason Comments Medication Refill Encounter Details Date Type Department Care Team (Late st Contact Info) Description 01/26/2021 Refill [facility] Medical Oncology [address] [place] [address] Dami Santamaria MD [address] [place] [address] Medication Refill Social History Tobacco [...] 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 Oncology Services [address] [place] [address] Dami Santamaria MD [address] [place] [address] Discharge Disposition: Discharged to home or Selfcare 02/19/2025 9:30 AM CDT Clinical Support [facility] Oncology Services [address] [place] [address] Dami Santamaria MD [address] [place] [address] Discharge Disposition: Discharged to home or Selfcare 07/02/2025 2:30 PM MAINTENANCE TECHNICIAN 2ND SHIFT Office Visit [facility] - Family Medicine - [place] [address] [place] [address] Kay Cabrales, [facility] [address] [place] [address] documented as of this encounter Visit Diagnoses Diagnosis Malignant neoplasm of lower-outer quadrant of right female breast (HCC) Malignant neoplasm of lower-outer quadrant of female breast documented in this encounter Additional Health Concerns Assessment Noted Time PHQ-9 Depression Total Score: 0 04/03/20 19 10:00 AM MAINTENANCE TECHNICIAN 2ND SHIFT documented as of this encounter Care Teams Steam Brush Operator Relationship Specialty Start Date End Date Kaitlynn Christianson MD PCP - General Family Medicine 03/07/15 05/09/22 Ana Theodore MD [address] [phone] PCP - General Family Medicine 05/10/22 08/05/23 Kay Cabrales PAC [address] [place] [address] PCP - General Physician Funeral Counselor 08/06/23 Dami Santamaria MD Consulting Physician Hematology 08/21/16 Erik Pathak MD Consulting Physician Radiation Oncology 09/22/16 Christiano Gregory MD #[address] [address] Consulting Physician Endocrinology 01/10/22 Eyad Regalado MD #[address] [address] Consulting Physician Colon and Rectal Surgery 04/02/24 documented as of this encounter
--- OUTSIDE RECORDS SUMMARY | 2025-01-09 02:59 | XMS_ITS | Encounter Summary ---
Author Organization [facility] Address [address] [place] [address] Phone Care Team Providers Care Principal Clerk Name Role Phone Kaitlynn Christianson MD Primary Care Provider [phone] Dami Santamaria MD Unavailable [phone] Erik Pathak MD Unavailable [phone] Christiano Gregory MD Unavailable Ana Theodore MD Primary Care Provider Kay Cabrales Primary Care Provider + Eyad Regalado MD Unavailable Reason for Visit * Reason Comments Medication Refill Encounter Details Date Type Department Care Team (Late st Contact Info) Description 04/10/2022 Refill 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 E TESTER documented in this encounter Plan of Treatment Upcoming Encounters Date Type Department Care Team (Late st Contact Info) Description 02/19/2025 9:20 AM CDT Office Visit [facility] Oncology Services [address] [place] [address] Dami Santamaria MD [address] [place] [address] Discharge Disposition: Discharged to home or Selfcare 02/19/2025 9:30 AM CDT Clinical Support [facility] Oncology Services [address] [place] [address] Dami Santamaria MD [address] [place] [address] Discharge Disposition: Discharged to home or Selfcare 07/02/2025 2:30 PM BRAKE TESTER Office Visit [facility] - Family Medicine [facility] [address] [place] [address] Kay Cabrales, [facility] [address] [place] [address] documented as of this encounter Visit Diagnoses Diagnosis Malignant neoplasm of lower-outer quadrant of right female breast (HCC) Malignant neoplasm of lower-outer quadrant of female breast documented in this encounter Additional Health Concerns Assessment Noted Time PHQ-9 Depression Total Score: 0 04/03/20 19 10:00 AM BRAKE TESTER documented as of this encounter Care Teams Principal Clerk Relationship Specialty Start Date End Date Kaitlynn Christianson MD PCP - General Family Medicine 03/07/15 05/09/22 Ana Theodore MD [address] [address] PCP - General Family Medicine 05/10/22 08/05/23 Kay Cabrales PAC [address] [place] [address] PCP - General Physician Tire Builder Operator 08/06/23 Dami Santamaria MD Consulting Physician Hematology 08/21/16 Erik Pathak MD Consulting Physician Radiation Oncology 09/22/16 Christiano Gregory MD #[address] [address] Consulting Physician Endocrinology 01/10/22 Eyad Regalado MD #[address] [address] Consulting Physician Colon and Rectal Surgery 04/02/24 documented as of this encounter
--- NOTE | 2025-01-09 06:21 | WPDHPUPDATE1 ---
History and Physical Update Update Date/Time: 01/09/25 06:21 History and Physical has been reviewed, including an updated exam of the patient. There are NO changes in the patient's condition. Risks, benefits, and alternatives have been discussed and questions answered. Patient agrees to proceed with procedure.
--- NOTE | 2025-01-09 06:52 | WPDANESEPPF ---
Anes - Initial Pre Proc Eval Procedure: Operation Date: 01/09/25 07:30 Proposed Procedures p Left Extracorporeal Shock Wave Lithotripsy - Rick Randle MD Date/Time: 01/09/25 06:52 Surgeon: Rick Randle MD Pre Op Diagnosis: left renal stone Patient Data Age: 74 Gender: F Height: 1.55 m Weight: 66 kg Allergies Allergy/AdvReac Type Severity Reaction Status Date / Time hydrocodone Allergy Severe Hives Verified 12/31/24 15:16 Home Medications ?Medication ?Instructions ?Recorded ?Confirmed ?Type Lactobacillus 40-Bifidobact 1 cap PO DAILY 02/20/23 12/31/24 History 3-S.thermophilus 100 billion cell capsule (Probiotic) amitriptyline 50 mg tablet 50 mg PO HS 02/20/23 12/31/24 History cholecalciferol (vitamin D3) 125 125 mcg PO DAILY 02/20/23 12/31/24 History mcg (5,000 unit) tablet (Vitamin D3) letrozole 2.5 mg tablet 2.5 mg PO HS 02/20/23 12/31/24 History levothyroxine 75 mcg tablet 75 mcg PO DAILY 02/20/23 12/31/24 History lovastatin 20 mg tablet 20 mg PO HS 02/20/23 12/31/24 History metoprolol succinate 25 mg 25 mg PO HS 02/20/23 12/31/24 History tablet,extended release 24 hr acetaminophen 325 mg tablet (Pain 650 mg PO ONCE PRN pain 12/31/24 12/31/24 History Reliever (acetaminophen)) Patient hx anesthesia problems: none Family hx anesthesia problems: none Results Review: All pre-operative results and documents have been reviewed as part of the pre-operative evaluation. [facility] Past Medical History Medical History (Updated 03/02/23 @ 06:34 by Erik Blanco MD) Hypothyroidism Breast cancer Hyperlipidemia HTN (hypertension) Surgical History Surgical History (Updated 03/02/23 @ 06:34 by Erik Blanco MD) H/O: hysterectomy Hx of tonsillectomy History of cholecystectomy Social History Social History Smoking status: Never smoker Second hand tobacco smoke exposure: No Alcohol intake: never Substance use: never Living arrangements: with family Additional living arrangements comments: Spiritual care concerns: No Anes - Eval Final PreProcedure Day of Procedure 01/09/25 06:52 Patient weight: overweight Heart: regular rate and rhythm Lungs: clear to auscultation Airway: Mallampati scale class II Neurological: alert and oriented Last oral intake: >/= 8 hours ASA classification: III Emergent: no Anesthetic plan: proceed Anesthesia type and monitoring: general LMA and standard monitoring Results Review: All pre-operative results and documents have been reviewed as part of the pre-operative evaluation. Informed Consent: The patient's anesthetic plan and its attendant risks and benefits were discussed with the patient/family/POA. Questions were solicited and answers provided to the satisfaction of the patient/family/POA.
[2025-01-09] MEDS: ceFAZolin 2 GM in SODIUM CHLORIDE 0.9% IV 50 ML 100 ML IVPB (07:28)
--- NOTE | 2025-01-09 07:57 | W.PM.PROC2 ---
Procedure Note - Detailed Date of Procedure 01/09/25 Pre-op Diagnosis Left renal stone Post-op Diagnosis Same Procedure Performed Left ESWL Surgeon Rick Randle MD Anesthesia General Description of Procedure The patient was brought to the operative suite where she was placed in the supine position on the Dornier lithotripsy table. The focal point of the lithotripter was placed at a 5mm left renal calculus. A total of 2500 shocks were delivered at a power setting of 4. There appeared to be good fragmentation of the stone. The patient tolerated the procedure well and was taken to the recovery room in good condition. Pathology None sent Complications No immediate complications Condition Stable Disposition PACU
[2025-01-09] MEDS: LACTATED RINGERS 1,000 ML 30 ML IV CONT (08:11)
--- NOTE | 2025-01-09 10:14 | SUR.PHASEII ---
URINE STRAINING KIT GIVEN TO PATIENT WITH INSTRUCTIONS.
== END 2025-01-09 10:00 | disposition home or self-care (01) ==
PROVIDERS: PCP Physician Assistant; Visit Provider Urology
PROC: (CPT 50590; principal; 2025-01-09 07:30)
DX: N20.0 Calculus of kidney (principal); I10 Essential (primary) hypertension; E78.5 Hyperlipidemia, unspecified; E03.9 Hypothyroidism, unspecified; Z98.890 Other specified postprocedural states; Z90.49 Acquired absence of other specified parts of digestive tract; Z85.3 Personal history of malignant neoplasm of breast
CPT/HCPCS: 50590; 74018; J0690; J1100; J2003; J2250; J2405; J2704; J3010; J7120

== ENCOUNTER 2025-01-16 14:15 | Outpatient (CLI) | payer MEDICARE, SELFPAY ==
--- NOTE | ~2025-01-16 | XR_ITS ---
XR abdomen/kub 1V 01/16/2025 14:38 Indication: Renal stones Procedure: KUB Comparison: 01/09/2025 Findings: There are small left renal stones. Status post cholecystectomy. Nonobstructive bowel gas. There are pelvic phleboliths. No acute osseous abnormality. Impression: 1: Left nephrolithiasis. Reviewed, dictated and finalized at location O. Impression: 1: Left nephrolithiasis.
--- OUTSIDE RECORDS SUMMARY | 2025-01-16 14:26 | XMS_ITS | Encounter Summary ---
Author Organization [facility] Address [address] [place] [address] Phone Care Team Providers Care Fountain Roller Assembler Name Role Phone Kaitlynn Christianson MD Primary Care Provider [phone] Dami Santamaria MD Unavailable [phone] Erik Pathak MD Unavailable [phone] Christiano Gregory MD Unavailable Ana Theodore MD Primary Care Provider Kay Cabrales Primary Care Provider + Eyad Regalado MD Unavailable Reason for Visit * Reason Comments Medication Refill Encounter Details Date Type Department Care Team (Late st Contact Info) Description 10/10/2021 Refill [facility] - Primary Care - [place] [place] [address] Kaitlynn Christianson MD [address] [place] [address] Medication Refill Social History Tobacco [...] 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 on file [...] Dept 06/28/21 Office Visit Kaitlynn Christianson MD [facility] 02/08/21 Office Visit Kaitlynn Christianson MD [facility] 12/17/20 Office Visit Kaitlynn Christianson MD [facility] Showing recent visits within past 365 days and meeting all other requirements Future Appointments Date Type Provider Dept 12/19/21 Appointment [facility] 12/26/21 Appointment Kaitlynn Christianson MD [facility] Showing future appointments within next 90 days [...] Dept 06/28/21 Office Visit Kaitlynn Christianson MD [facility] 02/08/21 Office Visit Kaitlynn Christianson MD [facility] 12/17/20 Office Visit Kaitlynn Christianson MD [facility] Showing recent visits within past 365 days and meeting all other requirements Future Appointments Date Type Provider Dept 12/19/21 Appointment Lab, [facility] 12/26/21 Appointment Kaitlynn Christianson MD [facility] Showing future appointments within next 90 days [...] Dept 06/28/21 Office Visit Kaitlynn Christianson MD [facility] 02/08/21 Office Visit Kaitlynn Christianson MD [facility] 12/17/20 Office Visit Kaitlynn Christianson MD [facility] Showing recent visits within past 365 days and meeting all other requirements Future Appointments Date Type Provider Dept 12/19/21 Appointment Lab, [facility] 12/26/21 Appointment Kaitlynn Christianson MD [facility] Showing future appointments within next [...] Dept 06/28/21 Office Visit Kaitlynn Christianson MD [facility] [address] 02/08/21 Office Visit Kaitlynn Christianson MD [employer] [facility] 12/17/20 Office Visit Kaitlynn Christianson MD [facility] Showing recent visits within past 365 days and meeting all other requirements Future Appointments Date Type Provider Dept 12/19/[address] [facility] [address] 12/26/21 Appointment Kaitlynn Christianson MD [facility] Showing future appointments within next 90 days and meeting all other requirements documented in this encounter Plan of Treatment Upcoming Encounters Date Type Department Care Team (Late st Contact Info) Description 02/19/2025 9:20 AM CDT Office Visit [facility] Oncology Services [address] [place] [address] Dami Santamaria MD [address] [place] [address] Discharge Disposition: Discharged to home or Selfcare 02/19/2025 9:30 AM CDT Clinical Support [facility] Oncology Services [address] [place] [phone] Dami Santamaria MD [address] [place] [address] Discharge Disposition: Discharged to home or Selfcare 07/02/2025 2:30 PM FEED AND FARM MANAGEMENT ADVISER [facility] Visit [facility] [address] [place] [address] Kay Cabrales, [place] [address] [place] [address] documented as of this encounter Visit Diagnoses Diagnosis Fibromyalgia Mylagia and myositis, unspecified Acquired hypothyroidism Unspecified hypothyroidism Essential hypertension Unspecified essential hypertension documented in this encounter Additional Health Concerns Assessment Noted Time PHQ-9 Depression Total Score: 0 04/03/20 19 10:00 AM FEED AND FARM MANAGEMENT ADVISER documented as of this encounter Care Teams Fountain Roller Assembler Relationship Specialty Start Date End Date Kaitlynn Christianson MD PCP - General Family Medicine 03/07/15 05/09/22 Ana Theodore MD [address] [address] PCP - General Family Medicine 05/10/22 08/05/23 Kay Cabrales PAC [address] [place] [address] PCP - General Physician Investment Executive 08/06/23 Dami Santamaria MD Consulting Physician Hematology 08/21/16 Erik Pathak MD Consulting Physician Radiation Oncology 09/22/16 Christiano Gregory MD [address] [address] Consulting Physician Endocrinology 01/10/22 Eyad Regalado MD [address] [place] [address] Consulting Physician Colon and Rectal Surgery 04/02/24 documented as of this encounter
--- OUTSIDE RECORDS SUMMARY | 2025-01-16 14:26 | XMS_ITS | Encounter Summary ---
Author Organization [facility] Address [address] [place] [address] Phone Care Team Providers Care Manual Plate Filler Name Role Phone Dami Santamaria MD Unavailable [phone] Erik Pathak MD Unavailable [phone] Christiano Gregory MD Unavailable Ana Theodore MD Primary Care Provider Kay Cabrales Primary Care Provider + Eyad Regalado MD Unavailable Reason for Visit * Reason Comments Medication Refill Encounter Details Date Type Department Care Team (Late st Contact Info) Description 01/16/2023 Refill [facility] Medical Oncology [address] [place] [address] Dami Santamaria MD [address] [place], [place] [id number] Medication Refill Social History Tobacco Use Types [...] 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 [address] [place] [address] Dami Santamaria MD [address] [place] [address] Discharge Disposition: Discharged to home or Selfcare 02/19/2025 9:30 AM CDT Clinical Support [facility] Oncology Services [address] [place] [address] Dami Santamaria MD 0 [place] [address] Discharge Disposition: Discharged to home or Selfcare 07/02/2025 2:30 PM TELECOMMUNICATIONS TECHNICIAN Office Visit [facility] [address] [place] [address] Kay Cabrales, [facility] [address] [place] [address] documented as of this encounter Visit Diagnoses Diagnosis Malignant neoplasm of lower-outer quadrant of right female breast (HCC) Malignant neoplasm of lower-outer quadrant of female breast documented in this encounter Additional Health Concerns Assessment Noted Time PHQ-9 Depression Total Score: 0 05/10/20 1:00 PM TELECOMMUNICATIONS TECHNICIAN documented as of this encounter Care Teams Manual Plate Filler Relationship Specialty Start Date End Date Ana Theodore MD [address] [address] PCP - General Family Medicine 05/10/22 08/05/23 Kay Cabrales PAC [address] [place] [address] PCP - General Physician Demurrage Man 08/06/23 Dami Santamaria MD Consulting Physician Hematology 08/21/16 Erik Pathak MD Consulting Physician Radiation Oncology 09/22/16 Christiano Gregory MD [address] [address] Consulting Physician Endocrinology 01/10/22 Eyad Regalado MD #[address] [address] Consulting Physician Colon and Rectal Surgery 04/02/24 documented as of this encounter
--- OUTSIDE RECORDS SUMMARY | 2025-01-16 14:26 | XMS_ITS | Encounter Summary ---
Author Organization [facility] Address [address] [place] [address] Phone Care Team Providers Care Tumbling And Rolling Supervisor Name Role Phone Kaitlynn Christianson MD Primary Care Provider [phone] Dami Santmaaria MD Unavailable [phone] Erik Pathak MD Unavailable [phone] Christiano Gregory MD Unavailable Ana Theodore MD Primary Care Provider Kay Cabrales Primary Care Provider + Eyad Regalado MD Unavailable Reason for Visit * Reason Comments Medication Refill Encounter Details Date Type Department Care Team (Late st Contact Info) Description 04/10/2022 Refill [facility] Medical Oncology [address] [place] [address] Dami Santamaria MD [address] [place] [address] Medication Refill Social History Tobacco [...] 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 GRAPHICAL DRAFTER documented in this encounter Plan of Treatment Upcoming Encounters Date Type Department Care Team (Late st Contact Info) Description 02/19/2025 9:20 AM CDT Office Visit [facility] Oncology Services [address] [place] [address] Dami Santamaria MD [address] [place] [address] Discharge Disposition: Discharged to home or Selfcare 02/19/2025 9:30 AM CDT Clinical Support [facility] Oncology Services [address] [place] [address] Dami Santamaria MD [address] [place] [address] Discharge Disposition: Discharged to home or Selfcare 07/02/2025 2:30 PM TOPOGRAPHICAL DRAFTER Office Visit [facility] - Family Medicine [facility] [address] [place] [address] Kay Cabrales, [facility] [address] [place] [address] documented as of this encounter Visit Diagnoses Diagnosis Malignant neoplasm of lower-outer quadrant of right female breast (HCC) Malignant neoplasm of lower-outer quadrant of female breast documented in this encounter Additional Health Concerns Assessment Noted Time PHQ-9 Depression Total Score: 0 04/03/20 19 10:00 AM TOPOGRAPHICAL DRAFTER documented as of this encounter Care Teams Tumbling And Rolling Supervisor Relationship Specialty Start Date End Date Kaitlynn Christianson MD PCP - General Family Medicine 03/07/15 05/09/22 Ana Theodore MD [address] [address] PCP - General Family Medicine 05/10/22 08/05/23 Kay Cabrales PAC [address] [place] [address] PCP - General Physician Program Manager Slp 08/06/23 Dami Santamaria MD Consulting Physician Hematology 08/21/16 Erik Pathak MD Consulting Physician Radiation Oncology 09/22/16 Christiano Gregory MD #[address] [address] Consulting Physician Endocrinology 01/10/22 Eyad Regalado MD #[address] [address] Consulting Physician Colon and Rectal Surgery 04/02/24 documented as of this encounter
--- OUTSIDE RECORDS SUMMARY | 2025-01-16 14:26 | XMS_ITS | Encounter Summary ---
Author Organization [facility] Address [address] [place] [address] Phone Care Team Providers Care Pediatric Pathologist Name Role Phone Kaitlynn Christianson MD Primary Care Provider [phone] Dami Snatamaria MD Unavailable [phone] Erik Pathak MD Unavailable [phone] Christiano Gregory MD Unavailable Ana Theodore MD Primary Care Provider Kay Cabrales Primary Care Provider + Eyad Regalado MD Unavailable Reason for Visit * Reason Comments Medication Refill Encounter Details Date Type Department Care Team (Late st Contact Info) Description 04/11/2022 Refill [facility] - Primary Care - [place] [address] [place] [address] Kaitlynn Christianson MD [address] [place] [address] Medication Refill Social History Tobacco [...] 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 [...] Dept 12/26/21 Office Visit Kaitlynn Christianson MD [facility] 06/28/21 Office Visit Kaitlynn Christianson MD [facility] Showing recent visits within past 365 days and meeting all other requirements Future Appointments Date Type Provider Dept 05/10/22 Appointment Ana Theodore MD [facility] 06/21/22 Appointment Lab, [facility] 06/29/22 Appointment Kaitlynn Christianson MD [facility] Showing future appointments within next 90 [...] Dept 12/26/21 Office Visit Kaitlynn Christianson MD [facility] [facility] 06/28/21 Office Visit Kaitlynn Christianson MD [facility] [place] [facility] Showing recent visits within past 365 days and meeting all other requirements Future Appointments Date Type Provider Dept 05/10/22 Appointment Ana Theodore MD [facility] 06/21/22 Appointment Lab, [facility] [facility] 06/29/22 Appointment Kaitlynn Christianson MD [facility] [place] [facility] Showing future appointments within next 90 [...] Dept 12/26/21 Office Visit [facility]lynn Christianson MD [facility] 06/28/21 Office Visit Kaitlynn Christianson MD [facility] [place] [facility] Showing recent visits within past 365 days and meeting all other requirements Future Appointments Date Type Provider Dept 05/10/22 Appointment Ana Theodore MD [facility] 06/21/22 Appointment Lab, [facility] [employer] 06/29/22 Appointment Kaitlynn Christianson MD [facility] [place] [facility] Showing future appointments within next 90 [...] Dept 12/26/21 Office Visit [facility]aitlynn Christianson MD [facility] Office Visit Kaitlynn Christianson MD [facility] Showing recent visits within past 365 days and meeting all other requirements Future Appointments Date Type Provider Dept 05/10/22 Appointment Ana Theodore MD [facility] 06/21/22 Appointment Andi Rad[facility] [address] 06/29/22 Appointment Kaitlynn Christianson MD [facility] Showing future appointments within next 90 days [...] Range Status 12/16/2021 121.7 <130 mg/dL Final OZOOLOGY TEACHER documented in this encounter Plan of Treatment Upcoming Encounters Date Type Department Care Team (Late st Contact Info) Description 02/19/2025 9:20 AM CDT Office Visit [facility] Oncology Services [address] [place] [address] Dami Santamaria MD [address] [place] [address] Discharge Disposition: Discharged to home or Selfcare 02/19/2025 9:30 AM CDT Clinical Support [facility] Oncology Services [address] [place] [address] Dami Santamaria MD [address] [place] [address] Discharge Disposition: Discharged to home or Selfcare 07/02/2025 2:30 PM PROTOZOOLOGY TEACHER [facility] Visit [facility] [address] [place] [address] Kay Cabrales, PAC [address] [place] [address] documented as of this encounter Visit Diagnoses Diagnosis Acquired hypothyroidism Unspecified hypothyroidism Essential hypertension Unspecified essential hypertension Fibromyalgia Mylagia and myositis, unspecified documented in this encounter Additional Health Concerns Assessment Noted Time PHQ-9 Depression Total Score: 0 04/03/20 19 10:00 AM PROTOZOOLOGY TEACHER documented as of this encounter Care Teams Pediatric Pathologist Relationship Specialty Start Date End Date Kaitlynn Christianson MD PCP - General Family Medicine 03/07/15 05/09/22 Ana Theodore MD #[address] [address] PCP - General Family Medicine 05/10/22 08/05/23 Kay Cabrales, [place] [address] [place] [address] PCP - General Physician School Cook 08/06/23 Dami Santamaria MD Consulting Physician Hematology 08/21/16 Erik Pathak MD Consulting Physician Radiation Oncology 09/22/16 Christiano Gregory MD #[address] [address] Consulting Physician Endocrinology 01/10/22 Eyad Regalado MD [address] [address] Consulting Physician Colon and Rectal Surgery 04/02/24 documented as of this encounter
--- OUTSIDE RECORDS SUMMARY | 2025-01-16 14:26 | XMS_ITS | Encounter Summary ---
Author Organization [facility] Address [address] [place] [address] Phone Care Team Providers Care Email Designer Name Role Phone Kaitlynn Christianson MD Primary Care Provider [phone] Dami Santamaria MD Unavailable [phone] Erik Pathak MD Unavailable [phone] Christaino Gregory MD Unavailable Ana Theodore MD Primary Care Provider Kay Cabrales Primary Care Provider + Eyad Regalado MD Unavailable Reason for Visit * Reason Comments Medication Refill Encounter Details Date Type Department Care Team (Late st Contact Info) Description 01/26/2021 [facility]ill [facility] [address] [place] [address] Kaitlynn Christianson MD [address] [place] [address] Medication Refill Social History Tobacco [...] 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 [...] Dept 12/17/20 Office Visit Kaitlynn Christianson MD [facility] 06/17/20 Telemedicine Kaitlynn Christianson MD [facility] Showing recent visits within past 365 days [...] Dept 12/17/20 Office Visit Kaitlynn Christianson MD [facility] [employer] [facility] 06/17/20 Telemedicine Kaitlynn Christianson MD [facility] Showing recent visits within past 365 days [...] Dept 12/17/20 Office Visit Kaitlynn Christianson MD [facility] 06/17/20 Telemedicine Kaitlynn Christianson MD [facility] Showing recent visits within past 365 days [...] Outpatient Visits 1 month ago Essential hypertension [facility]ait[facility]nn Christianson MD 7 months ago Essential hypertension [facility] Kaitlynn Christianson MD 1 year ago Essential hypertension [facility] Kaitlynn Everett MD 1 year ago Essential hypertension [facility] - Kaitlynn Everett MD 2 years ago Essential hypertension [facility] Kaitlynn Christianson MD Upcoming Appointments Future Appointments In 4 months [facility] In 4 months Dami Santamaria MD [facility] Oncology Services, [facility] In 4 months [facility] CC INFUSION CHR1 [facility] Oncology Services, [facility] In 4 months Kaitlynn Christianson MD [facility] In 10 months Erik Pathak MD [facility] Oncology Services, [facility] RESIDENTIAL SUBCONTRACTOR - Recent and Past Visits Recent Visits Date Type Provider Dept 12/17/20 Office Visit Kaitlynn Christianson MD [facility] 06/17/20 Telemedicine Kaitlynn Christianson MD [facility] 11/14/19 Telemedicine Kaitlynn Christianson MD [facility] Showing recent visits within past [...] Description 02/19/2025 9:20 AM CDT Office Visit [facility] Oncology Services [address] [place] [address] Dami Santamaria MD [address] [place] [address] Discharge Disposition: Discharged to home or Selfcare 02/19/2025 9:30 AM CDT Clinical Support [facility] Oncology Services [address] [place] [address] Dami Santamaria MD [address] [place] [address] Discharge Disposition: Discharged to home or Selfcare 07/02/2025 2:30 PM CLEARANCE CUTTER Office Visit [facility] Medical Group - Family [facility] [address] [place] [address] Kay Cabrales, PAC [address] [place] [address] documented as of this encounter Visit Diagnoses Diagnosis Acquired hypothyroidism Unspecified hypothyroidism Essential hypertension Unspecified essential hypertension Fibromyalgia Mylagia and myositis, unspecified documented in this encounter Additional Health Concerns Assessment Noted Time PHQ-9 Depression Total Score: 0 04/03/20 19 10:00 AM CLEARANCE CUTTER documented as of this encounter Care Teams Email Designer Relationship Specialty Start Date End Date Kaitlynn Christianson MD PCP - General Family Medicine 03/07/15 05/09/22 Aan Theodore MD #[address] [address] PCP - General Family Medicine 05/10/22 08/05/23 Kay Cabrales, PAC [address] [place] [address] PCP - General Physician Pilot Plant Technician 08/06/23 Dami Santamaria MD Consulting Physician Hematology 08/21/16 Erik Pathak MD Consulting Physician Radiation Oncology 09/22/16 Christiano Gregory MD #[address] [address] Consulting Physician Endocrinology 01/10/22 Eyad Regalado MD #[address] [address] Consulting Physician Colon and Rectal Surgery 04/02/24 documented as of this encounter
--- OUTSIDE RECORDS SUMMARY | 2025-01-16 14:26 | XMS_ITS | Encounter Summary ---
Author Organization [facility] Address [address] [place] [address] Phone Care Team Providers Care Rolling Mill Operator Helper Name Role Phone Kaitlynn Christianson MD Primary Care Provider Dami Santamaria MD Unavailable [phone] Erik Pathak MD Unavailable [phone] Ct, [facility] Unavailable Sharon vailable Christiano Gregory MD Unavailable Ana Theodore MD Primary Care Provider [phone] Kay Cabrales Primary Care Provider + Eyad Regalado MD Unavailable Reason for Visit * Reason Comments Medication Refill Encounter Details Date Type Department Care Team (Late st Contact Info) Description 10/26/2020 Refill [facility] Medical Oncology [address] [place] [address] Dami Santamaria MD [address] [place], [place] [id number] Medication Refill Social History Tobacco Use Types [...] 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 Oncology Services [address] [place] [address] Dami Santamaria MD [address] [place] [address] Discharge Disposition: Discharged to home or Selfcare 02/19/2025 9:30 AM CDT Clinical Support [facility] Oncology Services [address] [place] [address] Dami Santamaria MD [address] [place] [address] Discharge Disposition: Discharged to home or Selfcare 07/02/2025 2:30 PM SHOP SUPERINTENDENT Office Visit [facility] Medical Group - Family Medicine - [place] [address] [place] [address] Kay Cabrales, PAC [address] [place] [address] documented as of this encounter Visit Diagnoses Diagnosis Malignant neoplasm of lower-outer quadrant of right female breast (HCC) Malignant neoplasm of lower-outer quadrant of female breast documented in this encounter Additional Health Concerns Assessment Noted Time PHQ-9 Depression Total Score: 0 04/03/20 19 10:00 AM SHOP SUPERINTENDENT documented as of this encounter Care Teams Rolling Mill Operator Helper Relationship Specialty Start Date End Date Kaitlynn Christianson MD PCP - General Family Medicine 03/07/15 05/09/22 Ana Theodore MD #[address] [address] PCP - General Family Medicine 05/10/22 08/05/23 Kay Cabrales, [place] [address] [place] [address] PCP - General Physician Carpet Inspector 08/06/23 Dami Santamaria MD Consulting Physician Hematology 08/21/16 Erik Pathak MD Consulting Physician Radiation Oncology 09/22/16 Ct[facility] [employer] [facility] 12/13/19 12/15/20 Christiano Gregory MD #[address] [phone] Consulting Physician Endocrinology 01/10/22 Eyad Regalado MD #[address] [address] Consulting Physician Colon and Rectal Surgery 04/02/24 documented as of this encounter
--- OUTSIDE RECORDS SUMMARY | 2025-01-16 14:26 | XMS_ITS | Encounter Summary ---
Author Organization [facility] Address [address] [place] [address] Phone Care Team Providers Care Claim Analyst Name Role Phone Kaitlynn Christianson MD Primary Care Provider [phone] Dami Santamaria MD Unavailable [phone] Erik Pathak MD Unavailable [phone] Christiano Gregory MD Unavailable Ana Theodore MD Primary Care Provider Kay Cabrales Primary Care Provider + Eyad Regalado MD Unavailable Reason for Visit * Reason Comments Medication Refill Encounter Details Date Type Department Care Team (Late st Contact Info) Description 07/16/2021 Refill [facility] - Primary Care - [address] [place] [address] Kaitlynn Christianson MD [address] [place] [address] Medication Refill Social History Tobacco [...] 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 No / Unsure 07/05/2021 12:54 PM ESCALATOR CONSTRUCTOR documented as of this encounter Miscellaneous Notes * Telephone Encounter - Amanda Andrews RN - 07/18/2021 10:04 AM ESCALATOR CONSTRUCTOR Medication failed the protocol, provider to review [...] Dept 06/28/21 Office Visit Kaitlynn Christianson MD [facility] [employer] [facility] 02/08/21 Office Visit Kaitlynn Christianson MD [facility] 12/17/20 Office Visit Kaitlynn Christianson MD [facility] Showing recent visits within past [...] Dept 06/28/21 Office Visit Kaitlynn Christianson MD [facility] [employer] [address] 02/08/21 [email or web address] [email or web address] 12/17/20 Office Visit Kaitlynn Christianson MD [facility] [email or web address] Showing recent visits within past 365 days [...] Dept 06/28/21 Office Visit Kaitlynn Christianson MD [facility] [employer] [address] 02/08/21 Office Visit Kaitlynn Christianson MD [facility] 12/17/20 Office Visit Kaitlynn Christianson MD [facility] [email or web address] Showing recent visits within past 365 days [...] Dept 06/28/21 Office Visit Kaitlynn Christianson MD [facility] [employer] [address] 02/08/21 Office Visit Kaitlynn Christianson MD [facility] [employer] [address] 12/17/20 Office Visit Kaitlynn Christianson MD [facility] [email or web address] Showing recent visits within past 365 days [...] Status 06/15/2021 130.5 (H) <130 mg/dL Final LATOR CONSTRUCTOR documented in this encounter Plan of Treatment Upcoming Encounters Date Type Department Care Team (Late st Contact Info) Description 02/19/2025 9:20 AM CDT Office Visit [facility] [address] [place] [address] Dami Santamaria MD [address] [place] [address] Discharge Disposition: Discharged to home or Selfcare 02/19/2025 9:30 AM CDT Clinical Support [facility] [address] [place] [address] Dami Santamaria MD [address] [place] [address] Discharge Disposition: Discharged to home or Selfcare 07/02/2025 2:30 PM ESCALATOR CONSTRUCTOR Office Visit [facility] - Family Medicine [facility] [address] [place] [address] Kay Cabrales, [facility] [address] [place] [address] documented as of this encounter Visit Diagnoses Diagnosis Acquired hypothyroidism Unspecified hypothyroidism Essential hypertension Unspecified essential hypertension Fibromyalgia Mylagia and myositis, unspecified documented in this encounter Additional Health Concerns Assessment Noted Time PHQ-9 Depression Total Score: 0 04/03/20 19 10:00 AM ESCALATOR CONSTRUCTOR documented as of this encounter Care Teams Claim Analyst Relationship Specialty Start Date End Date Kaitlynn Christianson MD PCP - General Family Medicine 03/07/15 05/09/22 Ana Theodore MD [address] [phone] PCP - General Family Medicine 05/10/22 08/05/23 Kay Cabrales PAC [address] [place] [address] PCP - General Physician Spa Concierge 08/06/23 Dami Santamaria MD Consulting Physician Hematology 08/21/16 Erik Pathak MD Consulting Physician Radiation Oncology 09/22/16 Christiano Gregory MD [address] [address] Consulting Physician Endocrinology 01/10/22 Eyad Regalado MD [address] [address] Consulting Physician Colon and Rectal Surgery 04/02/24 documented as of this encounter
--- OUTSIDE RECORDS SUMMARY | 2025-01-16 14:26 | XMS_ITS | Encounter Summary ---
Author Organization [facility] Address [address] [place] [address] Phone Care Team Providers Care Corduroy Cutting Supervisor Name Role Phone Dami Santamaria MD Unavailable Erik Pathak MD Unavailable [phone] Christiano Gregory MD Unavailable Ana Theodore MD Primary Care Provider Kay Cabrales Primary Care Provider + Eyad Regalado MD Unavailable Reason for Visit * Reason Comments Medication Refill Encounter Details Date Type Department Care Team (Late st Contact Info) Description 01/16/2023 Refill [facility] - Primary Care - Radha [address] [place] [address] [place] [id number] [place] [address] Medication Refill Social History Tobacco [...] 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 [...] Provider Dept 02/08/23 Appointment Ana Theodore MD [facility] Showing future appointments within next 90 days and meeting all other requirements documented in this encounter Plan of Treatment Upcoming Encounters Date Type Department Care Team (Late st Contact Info) Description 02/19/2025 9:20 AM CDT Office Visit [facility] Oncology Services [address] [place] [address] Dami Santamaria MD [address] [place] [address] Discharge Disposition: Discharged to home or Selfcare 02/19/2025 9:30 AM CDT Clinical Support [facility] Oncology Services [address] [place] [address] Dami Santamaria MD [address] [place] [address] Discharge Disposition: Discharged to home or Selfcare 07/02/2025 2:30 PM MECHANICAL UNIT REPAIRER Office Visit [facility] - Family [facility] [address] [place] [address] Kay Cabrales [facility] [address] [place] [address] documented as of this encounter Visit Diagnoses Diagnosis Acquired hypothyroidism Unspecified hypothyroidism Essential hypertension Unspecified essential hypertension documented in this encounter Additional Health Concerns Assessment Noted Time PHQ-9 Depression Total Score: 0 05/10/20 22 1:00 PM MECHANICAL UNIT REPAIRER documented as of this encounter Care Teams Corduroy Cutting Supervisor Relationship Specialty Start Date End Date Ana Theodore MD [address] [address] PCP - General Family Medicine 05/10/22 08/05/23 Kay Cabrales [facility] [address] [place] [address] PCP - General Physician Multi Disciplined Language Analyst 08/06/23 Dami Santamaria MD Consulting Physician Hematology 08/21/16 Erik Pathak MD Consulting Physician Radiation Oncology 09/22/16 Christiano Gregory MD [address] [address] Consulting Physician Endocrinology 01/10/22 Eyad Regalado MD [address] [address] Consulting Physician Colon and Rectal Surgery 04/02/24 documented as of this encounter
--- OUTSIDE RECORDS SUMMARY | 2025-01-16 14:26 | XMS_ITS | Encounter Summary ---
Author Organization [facility] Address [address] [place] [address] Phone Care Team Providers Care Activity Aid Name Role Phone Kaitlynn Christianson MD Primary Care Provider [phone] Dami Santamaria MD Unavailable [phone] Erki Pathak MD Unavailable [phone] Ct[facility] Unavailable Sharon vailable Christiano Gregory MD Unavailable Ana Theodore MD Primary Care Provider Kay Cabrales Primary Care Provider + Eyad Regalado MD Unavailable Reason for Visit * Reason Comments Medication Refill Encounter Details Date Type Department Care Team (Late st Contact Info) Description 07/25/2020 Refill [facility] [address] [place] [address] Kaitlynn Christianson MD [address] [place] [address] Medication Refill Social History Tobacco [...] 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 ISITION PROFESSIONAL documented in this encounter Plan of Treatment Upcoming Encounters Date Type Department Care Team (Late st Contact Info) Description 02/19/2025 9:20 AM CDT Office Visit [facility] [place] [facility] [address] [place] [address] Dami Santamaria MD [address] [place] [address] Discharge Disposition: Discharged to home or Selfcare 02/19/2025 9:30 AM CDT Clinical Support [facility] Oncology Services [address] [place] [address] Dami Santamaria MD [address] [place] [address] Discharge Disposition: Discharged to home or Selfcare 07/02/2025 2:30 PM ACQUISITION PROFESSIONAL Office Visit [facility] - Family Medicine [facility] [address] [place] [address] Kay Cabrales, PAC [address] [place] [address] documented as of this encounter Visit Diagnoses Diagnosis Essential hypertension Unspecified essential hypertension Acquired hypothyroidism Unspecified hypothyroidism documented in this encounter Additional Health Concerns Assessment Noted Time PHQ-9 Depression Total Score: 0 04/03/20 19 10:00 AM ACQUISITION PROFESSIONAL documented as of this encounter Care Teams Activity Aid Relationship Specialty Start Date End Date Kaitlynn Christianson MD PCP - General Family Medicine 03/07/15 05/09/22 Ana Theodore MD [address] [address] PCP - General Family Medicine 05/10/22 08/05/23 Kay Cabrales PAC [address] [place] [address] PCP - General Physician Sponsorship Manager 08/06/23 Dami Santamaria MD Consulting Physician Hematology 08/21/16 Erik Pathak MD Consulting Physician Radiation Oncology 09/22/16 Ct[facility] [place] [employer] [facility] 12/13/19 12/15/20 Christiano Gregory MD [address] [address] Consulting Physician Endocrinology 01/10/22 Eyad Regalado MD #[address] [address] Consulting Physician Colon and Rectal Surgery 04/02/24 documented as of this encounter
--- OUTSIDE RECORDS SUMMARY | 2025-01-16 14:26 | XMS_ITS ---
Author Organization [facility] Address [address] [facility] [address], [facility] [address] [place] [address] Phone Care Team Providers Care Laundry Route Driver Name Role Phone Dami Santamaria MD Unavailable [phone] Erik Pathak MD Unavailable Christiano Gregory MD Unavailable Kay Cabrales [facility] Primary Care Provider + Eyad Regalado MD [...] Clinical stage IIA (T2N0M0) ER/HER2 positive and [place] negative [place] grade 3 invasive ductal carcinoma of her right breast that received neoadjuvant dose dense AC x 4 followed by weekly paclitaxel plus Herceptin for 10 weeks with a complete response on both physical exam and radiographically that underwent breast conserving surgery including a 2nd procedure to re-excise the primary tumor bed with [id number] disease. In the partial mastectomy specimen there [...] (TAXOL) chemo infusiontrastuzumab (HERCEPTIN) infusion Therapy Complete aDmi Santamaria MD 3 of 3 cycles started [...] swelling 12/10/2019 03/0 11/2020 Lymphocytosis 12/10/2019 06/17/2020 [facility] (current) use of a romatase inhibitors 09/28/2018 [...]
--- OUTSIDE RECORDS SUMMARY | 2025-01-16 14:26 | XMS_ITS ---
Author Organization Unknown ENCOUNTERS Encounter Performer Location Date Diagnosis Diagnosis Status Outpatient [facility] [address] [place] [address] [id number] Outpatient [facility] [address] [place] [address] [id number] [facility] [address] [place] [address] [id number] [facility] [address] [place] [address] [id number] [facility] [address] [place] [address] [id number] [facility] Out[facility] [address] [place] [address] [id number] [facility] Outpatient [facility] [address] [place] [address] [id number] [facility] Outpatient [facility] [address] [place] [address] [id number] [facility] Outpatient [facility] [address] [place] [address] [id number] [facility] Outpatient [facility] [address] [place] [address] [id number] [facility] Pre Admit [facility] [address] [place] [address] [id number] *Note: Encounters from your own facility or health system may be excluded. Allergies, Adverse Reactions, Alerts Allergen Type Severity Identification Date hydrocodone drug allergy 4 [id number] Medications Name Date Quantity Days Supplied [facility] Number
--- OUTSIDE RECORDS SUMMARY | 2025-01-16 14:26 | XMS_ITS | Encounter Summary ---
Author Organization [facility] Address [address] [place] [address] Phone Care Team Providers Care Automobile Upholstery Trim Installer Name Role Phone Dami Santamaria MD Unavailable [phone] Erik Pathak MD Unavailable [phone] Christiano Gregory MD Unavailable Ana Theodore MD Primary Care Provider Kay Cabrales Primary Care Provider + Eyad Regalado MD Unavailable Reason for Visit * Reason Comments Medication Refill Encounter Details Date Type Department Care Team (Late st Contact Info) Description 10/04/2022 Refill [facility] Medical Oncology [address] [place] [address] Dami Santamaria MD [address] [place], [place] [id number] Medication Refill Social History Tobacco Use Types [...] 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 [...] Description 02/19/2025 9:20 AM CDT [facility] [address] [place] [phone] Dami Santamaria MD [address] [place] [address] Discharge Disposition: Discharged to home or Selfcare 02/19/2025 9:30 AM CDT Clinical Support [facility] [address] Oncology Services [address] [place] [address] Dami Santamaria MD 0 [place] [address] Discharge Disposition: Discharged to home or Selfcare 07/02/2025 2:30 PM PHOTOGRAPH INSPECTOR [facility] [address]2 [place] [address] Kay Cabrales, PAC [address] [place] [address] documented as of this encounter Visit Diagnoses Diagnosis Malignant neoplasm of lower-outer quadrant of right female breast (HCC) Malignant neoplasm of lower-outer quadrant of female breast documented in this encounter Additional Health Concerns Assessment Noted Time PHQ-9 Depression Total Score: 0 05/10/20 1:00 PM PHOTOGRAPH INSPECTOR documented as of this encounter Care Teams Automobile Upholstery Trim Installer Relationship Specialty Start Date End Date Ana Theodore MD [address] [address] PCP - General Family Medicine 05/10/22 08/05/23 Kay Cabrales, [facility] [address] [place] [address] PCP - General Physician Technology Sales Consultant 08/06/23 Dami Santamaria MD Consulting Physician Hematology 08/21/16 Erik Pathak MD Consulting Physician Radiation Oncology 09/22/16 Christiano Gregory MD #[address] [address] Consulting Physician Endocrinology 01/10/22 Eyad Regalado MD #[address] [address] Consulting Physician Colon and Rectal Surgery 04/02/24 documented as of this encounter
--- OUTSIDE RECORDS SUMMARY | 2025-01-16 14:26 | XMS_ITS | Encounter Summary ---
Author Organization [facility] Address [address] [place] [address] Phone Care Team Providers Care Generator Switchboard Operator Name Role Phone Kaitlynn Christianson MD Primary Care Provider Dami Santamaria MD Unavailable [phone] Erik Pathak MD Unavailable [phone] Ct, [facility] Unavailable Sharon vailable Christiano Gregory MD Unavailable Ana Theodore MD Primary Care Provider Kay Cabrales Primary Care Provider + Eyad Regalado MD Unavailable Reason for Visit * Reason Comments Medication Refill Encounter Details Date Type Department Care Team (Late st Contact Info) Description 04/26/2020 Refill [facility] Medical Oncology [address] [place] [address] Dami Santamaria MD [address] [place], [place] [phone] Medication Refill Social History Tobacco Use Types [...] refill for Letrozole per last OV note. N SLICER documented in this encounter Plan of Treatment Upcoming Encounters Date Type Department Care Team (Late st Contact Info) Description 02/19/2025 9:20 AM CDT Office Visit [facility] [place] [facility] [address] [place] [address] Dami Santamaria MD 0 [place] [address] Discharge Disposition: Discharged to home or Selfcare 02/19/2025 9:30 AM CDT Clinical Support [facility] Oncology Services [address] [place] [address] Dami Santamaria MD 0 [place] [address] Discharge Disposition: Discharged to home or Selfcare 07/02/2025 2:30 PM BACON SLICER Office Visit [facility] - Family Medicine [facility] [address] [place] [address] Kay Cabrales, [facility] [address] [place] [address] documented as of this encounter Visit Diagnoses Diagnosis Malignant neoplasm of lower-outer quadrant of right female breast (HCC) Malignant neoplasm of lower-outer quadrant of female breast documented in this encounter Additional Health Concerns Assessment Noted Time PHQ-9 Depression Total Score: 0 04/03/20 19 10:00 AM BACON SLICER documented as of this encounter Care Teams Generator Switchboard Operator Relationship Specialty Start Date End Date Kaitlynn Christianson MD PCP - General Family Medicine 03/07/15 05/09/22 Ana Theodore MD [address] [address] PCP - General Family Medicine 05/10/22 08/05/23 Kay Cabrales PAC [address] [place] [address] PCP - General Physician Can Conveyor Feeder 08/06/23 Dami Santamaria MD Consulting Physician Hematology 08/21/16 Erik Pathak MD Consulting Physician Radiation Oncology 09/22/16 Ct[facility] [place] [employer] [facility] 12/13/19 12/15/20 Christiano Gregory MD [address] [address] Consulting Physician Endocrinology 01/10/22 Eyad Regalado MD [address] [address] Consulting Physician Colon and Rectal Surgery 04/02/24 documented as of this encounter
--- OUTSIDE RECORDS SUMMARY | 2025-01-16 14:26 | XMS_ITS | Encounter Summary ---
Author Organization [facility] Address [address] [place] [address] Phone Care Team Providers Care Novelty Twister Tender Name Role Phone Dami Santamaria MD Unavailable [phone] Erik Pathak MD Unavailable [phone] Christiano Gregory MD Unavailable Ana Theodore MD Primary Care Provider Kay Cabrales Primary Care Provider + Eyad Regaldao MD Unavailable Reason for Visit * Reason Comments Medication Refill Encounter Details Date Type Department Care Team (Late st Contact Info) Description 07/10/2022 Refill [facility] - Primary Care - Radha [address] [place] [address] Kaitlynn Christianson MD [address] [place] [address] Medication Refill Social History Tobacco [...] 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 No / Unsure 06/25/2022 7:21 PM SOUR BLEACHING PLEATER documented as of this encounter Miscellaneous Notes [...] [place] 12/26/21 Office Visit Kaitlynn Christianson MD [facility] Showing recent visits within past 365 [...] [place] 12/26/21 Office Visit Kaitlynn Christianson MD [facility] Showing recent visits within past 365 [...] [place] 12/26/21 Office Visit Kaitlynn Christianson MD [facility] Showing recent visits within past 365 [...] [place] 12/26/21 Office Visit Kaitlynn Christianson MD [facility] Showing recent visits within past 365 [...] Range Status 06/21/2022 126.3 <130 mg/dL Final BLEACHING PLEATER documented in this encounter Plan of Treatment Upcoming Encounters Date Type Department Care Team (Late st Contact Info) Description 02/19/2025 9:20 AM CDT Office Visit [facility] On[facility] Services [address] [place] [address] Dami Santamaria MD [address] [place] [address] Discharge Disposition: Discharged to home or Selfcare 02/19/2025 9:30 AM CDT Clinical Support [facility] Oncology Services [address] [place] [address] Dami Santamaria MD [address] [place] [address] Discharge Disposition: Discharged to home or Selfcare 07/02/2025 2:30 PM SOUR BLEACHING PLEATER Office Visit [facility] - Family [facility] #[address] [place] [address] Kay Cabrales, PAC [address] [place] [address] documented as of this encounter Visit Diagnoses Diagnosis Essential hypertension Unspecified essential hypertension Acquired hypothyroidism Unspecified hypothyroidism Fibromyalgia Mylagia and myositis, unspecified documented in this encounter Additional Health Concerns Assessment Noted Time PHQ-9 Depression Total Score: 0 05/10/20 1:00 PM SOUR BLEACHING PLEATER documented as of this encounter Care Teams Novelty Twister Tender Relationship Specialty Start Date End Date Ana Theodore MD [address] [address] PCP - General Family Medicine 05/10/22 08/05/23 Kay Cabrales, PAC [address] [place] [address] PCP - General Physician Conservation Engineer 08/06/23 Dami Santamaria MD Consulting Physician Hematology 08/21/16 Erik Pathak MD Consulting Physician Radiation Oncology 09/22/16 Christiano Gregory MD [address] [address] Consulting Physician Endocrinology 01/10/22 Eyad Regalado MD #[address] [address] Consulting Physician Colon and Rectal Surgery 04/02/24 documented as of this encounter
--- OUTSIDE RECORDS SUMMARY | 2025-01-16 14:26 | XMS_ITS | Encounter Summary ---
Author Organization [facility] Address [address] [place] [address] Phone Care Team Providers Care Check Writer Salesperson Name Role Phone Dami Rodriguez MD Unavailable [phone] Erik Pathak MD Unavailable [phone] Christiano Gregory MD Unavailable Ana Theodore MD Primary Care Provider Kay Cabrales Primary Care Provider + Eyad Regalado MD Unavailable Reason for Visit * Reason Comments Medication Refill Encounter Details Date Type Department Care Team (Late st Contact Info) Description 07/10/2022 Refill [facility] Medical Oncology [address] [place] [address] Dami Rodriguez MD [address] [place], [place] [id number] Medication Refill Social History Tobacco Use Types [...] 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 No / Unsure 06/25/2022 7:21 PM PUBLICATIONS MANAGER documented as of this encounter Miscellaneous Notes * Telephone Encounter - Nora Miles RN - 07/10/2022 9:01 AM CST Refilled letrozole per dr rodriguez note 02/16/22 ICATIONS MANAGER documented in this encounter Plan of Treatment Upcoming Encounters Date Type Department Care Team (Late st Contact Info) Description 02/19/2025 9:20 AM CDT Office Visit [facility] Oncology Services 0 [place] [address] Dami Rodriguez MD [address] [place] [address] Discharge Disposition: Discharged to home or Selfcare 02/19/2025 9:30 AM CDT Clinical Support [facility] Oncology Services [address] [place] [address] Dami Rodriguez MD [address] [place] [address] Discharge Disposition: Discharged to home or Selfcare 07/02/2025 2:30 PM PUBLICATIONS MANAGER Office Visit [facility] - Family [facility] [address] [place] [address] Kay Cabrales, PAC [address] [place] [address] documented as of this encounter Visit Diagnoses Diagnosis Malignant neoplasm of lower-outer quadrant of right female breast (HCC) Malignant neoplasm of lower-outer quadrant of female breast documented in this encounter Additional Health Concerns Assessment Noted Time PHQ-9 Depression Total Score: 0 05/10/20 1:00 PM PUBLICATIONS MANAGER documented as of this encounter Care Teams Check Writer Salesperson Relationship Specialty Start Date End Date Ana Theodore MD [address] [address] PCP - General Family Medicine 05/10/22 08/05/23 Kay Cabrales PAC [address] [place] [address] PCP - General Physician Cook Helper Dessert 08/06/23 Dami Rodriguez MD Consulting Physician Hematology 08/21/16 Erik Pathak MD Consulting Physician Radiation Oncology 09/22/16 Christiano Gregory MD [address] [address] Consulting Physician Endocrinology 01/10/22 Eyad Regalado MD #[address] [address] Consulting Physician Colon and Rectal Surgery 04/02/24 documented as of this encounter
--- OUTSIDE RECORDS SUMMARY | 2025-01-16 14:26 | XMS_ITS | Clinical Summary ---
Author Organization [facility] Address [address], [facility] [address] [place] [address] Phone Care Team Providers Care Gardening Supervisor Name Role Phone Dami Santamaria MD Unavailable [phone] Erik Pathak MD Unavailable [phone] Christiano Gregory MD Unavailable Kay Cabrales [facility] Primary Care Provider + Eyad Regalado MD Unavailable Allergies Active Allergy Reactions Criticality Noted Date Comments Atorvastatin Other (see Comments),Rash Medium Leg pains Hydrocodone Hives,Rash Medium 03/15/2016 Medications Denosumab (PROLIA SC) by Subcutaneous route. Takes every 6 months. Active Vitamin D3 (CHOLECALCIFEROL) 5000 units TabletIndications: Vitamin D deficiency Take 1 Tab by mouth daily. 30 Tab 5 09/15/19 18 Active Probiotic Product (PROBIOTIC GUMMIES PO) Take by mouth. Activ e Multiple Vitamin (MULTI-VITAMIN PO) Take by mouth. Active letrozole (FEMARA) 2.5 MG TabletIndications: Malignant neoplasm of lower-outer quadrant of right female breast (HCC) Take 1 tablet by mouth once daily 90 Tablet 3 03/28/20 24 Active levothyroxine (SYNTHROID) 75 MCG TabletIndications: Acquired hypothyroidism Take 1 tablet by mouth once daily 90 Tablet 3 03/28/20 24 Active lovastatin (MEVACOR) 20 MG Tablet TAKE 1 TABLET BY MOUTH ONCE DAILY IN THE EVENING 90 Tablet 3 06/25/19 25 Active metoprolol Succinate (TOPROL-XL) 50 MG TABLET SR 24 HRIndications:Esse ntial hypertension Take 1 Tablet by mouth daily. 90 Tablet 3 09/20/19 25 Active amitriptyline (ELAVIL) 50 MG TabletIndications: Fibromyalgia Take 1 tablet by mouth nightly 90 Tablet 1 12/17/19 25 Active Active Problems Problem Noted Date Diagnosed [...] Clinical stage IIA (T2N0M0) ER/HER2 positive and [place] negative [place] grade 3 invasive ductal carcinoma of her right breast that received neoadjuvant dose dense AC x 4 followed by weekly paclitaxel plus Herceptin for 10 weeks with a complete response on both physical exam and radiographically that underwent breast conserving surgery including a 2nd procedure to re-excise the primary tumor bed with [id number] disease. 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 09/28/2018 [...] Description 12/22/2024 2:15 PM CDT Office Visit [facility] - Family Medicine - [place] [address] [place] [address] Kay Cabrales, VALENTIN Essential hypertension (Primary Dx); Tachycardia; Prediabetes Discharge Disposition: Discharged to home or Selfcare 12/20/2024 Travel 12/17/2024 10:50 AM CDT - 12/17/2024 11:59 PM CDT [facility] [address] [place] [address] Kay Cabrales, VALENTIN Discharge Disposition: Discharged to home or Selfcare 12/17/2024 Travel 12/16/[facility] [place] [address] [place] [address] Kay Cabrales, VALENTIN Medication Refill 12/08/2024 [facility] [address] [place] [address] Nancy Goldman Care Management 12/03/2024 10:27 AM CDT - 12/03/2024 11:59 PM CDT [facility] [address] [place] [address] Dami Santamaria MD Discharge Disposition: Discharged to home or Selfcare 12/02/2024 Travel 11/19/2024 9:40 AM CDT - 11/19/2024 11:59 PM CDT [facility] [address] [place] [address] Dami Santamaria MD Discharge Disposition: Discharged to home or Selfcare 11/17/2024 Travel 11/11/2024 Results Follow-Up [facility] [address] [place] [address] Kay Cabrales, PAC ADULT TRANS THORACIC ECHO 2D COMPLETE, EKG 12 LEAD 11/05/2024 3:56 PM CDT - 11/05/2024 11:59 PM CDT Hospital Encounter [facility] Cardiology Services [address] [place] [address] Kay Cabrales, VALENTIN Discharge Disposition: Discharged to home or Selfcare [...] Maternal Aunt 1 Hypertension Maternal Aunt 2 Victoria Zimmer Stroke Maternal Aunt 3 Tiffanie Florian Cancer Maternal Grandfather Bahman Saunders Gall Bl adder Cancer Maternal Grandmother Teresa Chip Panc reatic. Alzheimer's Disease Mother Diabetes Mother Cancer Paternal Grandmother N/A Diabetes Sister 1 Hypothyroidism Sister 2 Lucila Tigre No Known Problems Son Relation Name Status Comments Father Salomon Rodriguez Half-Brother 1 Alive Half-Brother 2 Alive Half-Brother 3 Alive Half-Sister Alive Maternal Aunt 1 Alive Maternal Aunt 2 Victoria Zimmer Alive Maternal Aunt 3 Tiffanie Florian Alive Maternal Grandfather Bahman Saunders Maternal Grandmother Teresa Saunders Mother Paternal Grandmother N/A Alive Sister 1 Alive Sister 2 Lucila Landeros Alive Son Alive Social History Tobacco Use Types Packs/Day Years Used Date Smoking Tobacco: Never Smokeless Tobacco: Never Tobacco Cessation:Counseling Given: Not Answered Alcohol Use Standard Drinks/Week Comments Not Currently 0 (1 standard drink = 0.6 oz pur e alcohol) Occasionally. [facility] Utilities Answer Date Recorded In the past 12 months has e [employer], [employer], oil, or water [employer] threatened to shut off services in your [...] often do you attend chur ch or synagogue services? More than 4 times per year 09/17/2024 Do you belong to any clubs o r organizations such as baptist groups, unions, fraternal or athletic groups, or [...] Score - Questions 1-9 0 05/0 06/2024 [facility] - Occupational Stress [...] in a longterm (including now)? No 08/07/2023 Housing Stability Vital Sign Answer [place] e Recorded In the last 12 months, was t here a time when you were not able to pay the mortgage or rent on time? No 09/17/2024 Number of Times Moved in the Last Year Not on fi le 09/17/2024 At any time in the past 12 m [facility], were you homeless or living in a longterm (including now)? 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 [place] Oncology Services [address] [place] [address] Dami Santamaria MD [address] [place] [address] Discharge Disposition: Discharged to home or Selfcare 07/02/2025 2:30 PM RECREATION ATTENDANT SUPERVISOR Office Visit [facility] Medical Group - Family [facility] [address] [place] [address] Kay Cabrales, [facility] [address] [place] [address] Health Maintenance Due Date Last Done Comments TdaP Immunization 1950 Zoster Immunization (1 of 2) 1969 Cologuard 12/20/1995 Immunochemical Fecal Occult Blood 12/20/1995 SARS-COV-2 Immunization ( season) 2024 09/14/2021, 03/14/2021, 07/26/2020, Additional history exists Influenza Immunization (#1) 2025 01/2 05/2024, 02/08/2023, 03/06/2022, Additional history exists DEXA Bone [...] this topic Medical Devices Implanted Type Area Cook Taco Device Identifier Shelf Expiration Date Model / Serial / Lot [employer] Implanted W/Sut Plugs 8fr - [id number] Implanted:Qty : 1 on 03/17/2016 by Kirby Farmer MD at [facility] IMPLANT Right: Chest Wall CR BARD / BARD BIOPSY 06/17/2017 [id number] / / [id number] Procedures Procedure Name Priority Date/Time Associated Diagnosis Comments XR - ABDOMEN/PELVIS 01/09/2025 1 2:00 AM CDT POCT GLYCOSYLATED HEMOGLOBIN Routine 12/22/2024 2:56 PM CDT Prediabetes EKG 12 LEAD Routine 12/17/2024 11:01 AM CDT Tachycardia CMP (COMPREHENSIVE METABOLIC PANEL) Routine 12/17/2024 10:53 AM CDT Malignant neoplasm of lower-outer quadrant of right breast of female, estrogen receptor positive (HCC) [facility] SCREENING BILATERAL DIGITAL W CAD W MICHEAL [...] COMPLETE Routine 11/05/2024 5:06 PM CDT Tachycardia [facility] BONE DENSITOMETRY AXIAL SKELETON Routine 07/05/2023 2:08 PM RECREATION ATTENDANT SUPERVISOR Malignant neoplasm of lower-outer quadrant of right breast of female, estrogen receptor positive 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, multiple sites from Last 3 Months or Most Recently Relevant to Health Maintenance Results * XR - ABDOMEN/PELVIS (01/09/2025 12:00 AM CDT) 01/09/2025 us Provider Scan IMG DIAGNOSTIC ORDERABLES Final Result SCAN * (ABNORMAL) POCT GLYCOSYLATED HEMOGLOBIN (12/22/2024 2:56 PM CDT) HGB-A1C 6.1(A) 4 - 6 % 12/22/2024 2:56 PM CDT Kay Cabrales [facility] POINT OF CARE TESTING (M ANUAL) Final Result * EKG 12 LEAD (12/17/2024 11:01 AM CDT) Ventricular Rate 78 BPM EXTERNAL EKG Atrial Rate 78 BPM EXTERNAL EKG P-R Interval 192 ms EXTERNAL EKG QRS Duration 74 ms EXTERNAL EKG Q-T Duration 394 ms EXTERNAL EKG QTC CALCULATION 449 ms EXTERNAL EKG P [place] 46 degrees EXTERNAL EKG R [place] -22 degrees EXTERNAL EKG T [place] 26 degrees EXTERNAL EKG 12/17/2024 11:0 1 AM CDT Impressions EXTERNAL EKG - 12/23/2024 10:38 AM CDT Normal sinus rhythm Minimal voltage criteria for LVH, may be normal variant ( R in aVL ) Borderline ECG When compared with ECG of 15-MAR-2016 12:45, No significant change was found Confirmed by BONI MELÉNDEZ ([id number]) on 12/23/2024 10:38:30 AM Narrative Procedure Note Boni Meléndez MD - 12/23/2024 IMPRESSION: Normal sinus rhythm Minimal voltage criteria for LVH, may be normal variant ( R in aVL ) Borderline ECG When compared with ECG of 15-MAR-2016 12:45, No significant change was found Confirmed by BONI MELÉNDEZ ([id number]) on 12/23/2024 10:38:30 AM Kay Cabrales [facility] IMG ECG ORDERABLES Final Result EXTERNAL EKG * (ABNORMAL) CMP (COMPREHENSIVE METABOLIC PANEL) (12/17/2024 10:53 AM CDT) SODIUM 140 136 - 145 mmol/L 12/17/2024 1:[address] PM [address] [facility] POTASSIUM 4.3 3.5 - 5.1 mmol/L 12/17/2024 1:05 PM [facility] CHLORIDE 106 98 - 107 mmol/L 12/17/2024 1:05 PM [facility] CO2, VENOUS 25 22 - 30 mmol/L 12/17/2024 1:05 PM [facility] ANION GAP 13.3 <18.0 mmol/L 12/17/2024 1:05 PM [facility] GLUCOSE 110(H) 70 - 99 mg/dL 12/17/2024 1:05 PM [facility] BUN 11 10 - 20 mg/dL 12/17/2024 1:05 PM [facility] CREATININE, BLOOD 0.83 0.60 - 1.00 mg/dL 12/17/2024 1:05 PM [facility] BUN/CREATININE RATIO 13 12 - 20 ratio 12/17/2024 1:05 PM [facility] TOTAL PROTEIN 7.6 6.0 - 8.0 g/dL 12/17/2024 1:05 PM [facility] ALBUMIN 4.6 3.5 - 5.0 g/dL 12/17/2024 1:05 PM [facility] A/G RATIO 1.5 1.0 - 2.2 12/17/2024 1:05 PM [facility] CALCIUM 9.4 8.7 - 10.5 mg/dL 12/17/2024 1:05 PM [facility] T BILI 0.5 0.2 - 1.2 mg/dL 12/17/2024 1:05 PM [facility] SGOT (AST) 32 <43 U/L 12/17/2024 1:05 PM [facility] SGPT (ALT) 24 <56 U/L 12/17/2024 1:05 PM [facility] ALKALINE PHOSPHATASE 43 40 - 150 U/L 12/17/2024 1:05 PM [facility] IS THE PATIENT REQUIRED TO BE FASTING? No 12/17/2024 1:05 PM CDT [facility] GFR, ESTIMATED >60 >=60 12/17/2024 1:05 PM CDT [facility] Comment: Creatinine Clearance is the preferred criteria for selecting drug dose adjustments in renally impaired patients. The GFR is provided as additional pertinent clinical information. GFR is reported in mL/min/1.73 sq m. Calculation based on the Chronic Kidney Disease Epidemiology Collaboration (CKD- EPI) equation refit without adjustment for race. GFR, EST. >60 >=60 025 1:05 PM CDT [facility] GFR, EST. NONAFRICAN >60 >=60 12/17/2024 1:05 PM CDT [facility] Blood Venipuncture / Unknown 12/17/2024 10:53 AM CDT 12/17/2024 12:38 PM [facility]T [facility] CHEMISTRY ORDERABLES Fin al Result [facility] [address] [place] [address] * STEVE SCREENING BILATERAL DIGITAL W CAD [...] to exams dated: 11/28/2023, 11/15/2022, and 11/15/2021 [facility]. BREAST TISSUE:There are scattered areas of [...] next screening exam. Electronically signed by: Arnav vásquez/beni:12/03/2024 15:59:06 Director Financial Services(s): RT Jeaneth(R)(M), [facility] letter sent: Normal Exam Reading location: [...] to exams dated: 11/28/2023, 11/15/2022, and 11/15/2021 [facility]. BREAST TISSUE:There are scattered areas of [...] exam. Electronically signed by: Arnav vásquez/penrad:12/03/2024 15:59:06 Director Financial Services(s): Marleen Mauricio RT(R)(M), [facility] letter sent: Normal Exam Reading location: [place] Mammogram BI-RADS: Category 2: [facility] MD IMG MAMMO ORDERABLES Fin al [...] Kenneth Bay M.D. AM: AM Report ID: [id number] Reading Location: [place] [address] Procedure Note Kenneth Bay MD - 12/02/2024 [...] Kenneth Bay M.D. AM: AM Report ID: [id number] Reading Location: [id number] IMPRESSION: Enlarged left para-aortic lymph node measuring 1.3 x 2.0 cm, previously 1.3 x 1.8 cm. Nonobstructing 5 mm calculus in the interpolar region of the left kidney. Dami Santamaria MD IMG CT ORDERABLES Final Result * POCT Creatinine (11/19/2024 9:54 AM CDT) [facility] CREATININE - POCT 1.0 0.6 - 1.3 mg/dL 11/19/2024 9:[address] [facility] Blood 11/19/2024 9:54 AM CDT 11/19/2024 9:55 AM CDT None Provider POINT OF CARE TESTING Final Resu lt [facility] [address] [place] [address] * ADULT TRANS THORACIC ECHO 2D COMPLETE (11/05/2024 5:06 PM CDT) [facility] AV Peak Grad mmHg 5.86 mmHg RESULTING [...] LISSETT Lou Reanna 1950 Patient ID (UPI) [id number] Indications: Tachycardia. Study Date11/05/2024 Technical quality: Limited [...] lbs. BMI (BSA) 28.36 kg/m^2 (1.67 m^2) Optometrist Owner Gloria Morgan Referring Physician Diamond Physician Medhat Sharpe Procedure Note Boni Meléndez MD - 11/06/2024 Transthoracic Echocardiography Report (TTE) Patient name LISSETT Lou Reanna 1950 Patient ID (UPI) [id number] Indications: Tachycardia. Study Date11/05/2024 Technical quality: Limited [...] lbs. BMI (BSA) 28.36 kg/m^2 (1.67 m^2) Optometrist Owner Gloria Morgan Referring Physician Diamond Physician Medhat Sharpe Kay Cabrales PAC IMG ECHO ORDERABLES Edit ed Result - Final * [facility] BONE DENSITOMETRY AXIAL SKELETON (07/05/2023 2:08 PM RECREATION ATTENDANT SUPERVISOR) Anatomical Region Laterality Modality BODY N/A Computed Radiogr aphy 07/05/2023 2:33 PM RECREATION ATTENDANT SUPERVISOR Impressions 07/05/2023 2:35 PM RECREATION ATTENDANT SUPERVISOR IMPRESSION: Low Bone Mass. REFERENCE: Bone mineral [...] of Osteoporosis (http://www.nof.org/professionals/clinical-guidelines) Narrative 07/05/2023 2:35 PM RECREATION ATTENDANT SUPERVISOR EXAM DESCRIPTION: [facility] BONE DENSITOMETRY AXIAL SKELETON REASON FOR STUDY: 72 year old postmenopausal female with given history of: Malignant neoplasm of lower-outer quadrant of right breast of female, estrogen receptor positive , Osteopenia due to cancer therapy, Other specified disorders of bone density and structure, multiple sites Cook Taco/Model: BLAZER & FLIP FLOPS (S/N [id number]) CLINICAL INFORMATION: Current height: 61 inches Maximum [...] Omari Hannon M.D. RB: IFTIKHAR Report ID: [id number] Reading Location: [id number] Procedure Note Omari Hannon MD - 07/05/2023 EXAM DESCRIPTION: [facility] BONE DENSITOMETRY AXIAL SKELETON REASON FOR STUDY: 72 year old postmenopausal female with given history of: Malignant neoplasm of lower-outer quadrant of right breast of female, estrogen receptor positive , Osteopenia due to cancer therapy, Other specified disorders of bone density and structure, multiple sites Cook Taco/Model: BLAZER & FLIP FLOPS (S/N [id number]) CLINICAL INFORMATION: Current height: 61 inches Maximum [...] Omari Hannon M.D. RB: IFTIKHAR Report ID: [id number] Reading Location: [place] [address] IMPRESSION: Low Bone Mass. REFERENCE: Bone mineral [...] to Prevention and Treatment of Osteoporosis (http://www.nof.org/professionals/clinical-guidelines) Dami Santamaria MD IMG DEXA ORDERABLES Greta l Result from Last 3 Months or Most Recently Relevant to Health Maintenance Insurance MEDICARE [place] [address] Care Teams Gardening Supervisor Relationship Specialty Start Date End Date Kay Cabrales PAC [address] [place] [address] PCP - General Physician Recovery Engineer 08/06/23 Dami Santamaria MD Consulting Physician Hematology 08/21/16 Erik Pathak MD Consulting Physician Radiation Oncology 09/22/16 Christiano Gregory MD [address] [address] Consulting Physician Endocrinology 01/10/22 Eyad Regalado MD [address] [address] Consulting Physician Colon and Rectal Surgery 04/02/24
--- OUTSIDE RECORDS SUMMARY | 2025-01-16 14:26 | XMS_ITS | Encounter Summary ---
Author Organization [facility] Address [address] [place] [address] Phone Care Team Providers Care Navy Seal Name Role Phone Dami Santamaria MD Unavailable [phone] Erik Pathak MD Unavailable [phone] Christiano Gregory MD Unavailable Ana Theodore MD Primary Care Provider Kay Cabrales Primary Care Provider + Eyad Regalado MD Unavailable Reason for Visit * Reason Comments Medication Refill Encounter Details Date Type Department Care Team (Late st Contact Info) Description 04/10/2023 Refill [facility] - Primary Care - [place] [address] [place] [address] [place] [address] [place] [address] Medication Refill Social History Tobacco [...] 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 on file [...] 90 days and meeting all other requirements PER ON documented in this encounter Plan of Treatment Upcoming Encounters Date Type Department Care Team (Late st Contact Info) Description 02/19/2025 9:20 AM CDT Office Visit [facility] Oncology Services [address] [place] [address] Dami Santamaria MD [address] [place] [address] Discharge Disposition: Discharged to home or Selfcare 02/19/2025 9:30 AM CDT Clinical Support [facility] Oncology Services [address] [place] [address] Dami Santamaria MD [address] [place] [address] Discharge Disposition: Discharged to home or Selfcare 07/02/2025 2:30 PM SNAPPER ON Office Visit [facility] Medical Group - Family Medicine - [place] [address] [place] [address] Kay Cabrales, [facility] [address] [place] [address] documented as of this encounter Visit Diagnoses Diagnosis Fibromyalgia Mylagia and myositis, unspecified Acquired hypothyroidism Unspecified hypothyroidism Essential hypertension Unspecified essential hypertension documented in this encounter Additional Health Concerns Assessment Noted Time PHQ-9 Depression Total Score: 0 05/10/20 1:00 PM SNAPPER ON documented as of this encounter Care Teams [employer] Relationship Specialty Start Date End Date Ana Theodore MD [address] [address] PCP - General Family Medicine 05/10/22 08/05/23 Kay Cabrales PAC [address] [place] [address] PCP - General Physician Cold Water Machine Operator 08/06/23 Dami Santamaria MD Consulting Physician Hematology 08/21/16 Erik Pathak MD Consulting Physician Radiation Oncology 09/22/16 Christiano Gregory MD [address] [address] Consulting Physician Endocrinology 01/10/22 Eyad Regalado MD #[address] [address] Consulting Physician Colon and Rectal Surgery 04/02/24 documented as of this encounter
--- OUTSIDE RECORDS SUMMARY | 2025-01-16 14:26 | XMS_ITS | Encounter Summary ---
Author Organization [facility] Address [address] [place] [address] Phone Care Team Providers Care Inclusion Special Educator Name Role Phone Kaitlynn Christianson MD Primary Care Provider [phone] Dami Santamaria MD Unavailable [phone] Erik Pathak MD Unavailable [phone] Christiano Gregory MD Unavailable Ana Theodore MD Primary Care Provider Kay Cabrales Primary Care Provider + Eyad Regalado MD Unavailable Reason for Visit * Reason Comments Medication Refill Encounter Details Date Type Department Care Team (Late st Contact Info) Description 01/15/2022 Refill [facility] - Primary Care - [address] [place] [address] Kaitlynn Christianson MD [address] [place] [address] Medication Refill Social History Tobacco [...] 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 [...] Dept 12/26/21 Office Visit Kaitlynn Christianson MD [facility] 06/28/21 Office Visit Kaitlynn Christianson MD [facility] 02/08/21 Office Visit Kaitlynn Christianson MD [facility] Showing recent visits within past 365 days [...] Dept 12/26/21 Office Visit [facility] 06/28/21 Office Visit Kaitlynn Christianson MD [facility] 02/08/21 Office Visit Kaitlynn Christianson MD [facility] Showing recent visits within past 365 [...] Dept 12/26/21 Office Visit Kaitlynn Christianson MD [facility] 06/28/21 Office Visit Kaitlynn Christianson MD [facility] 02/08/21 Office Visit Kaitlynn Christianson MD [facility] Showing recent visits within past 365 [...] Dept 12/26/21 Office Visit Kaitlynn Christianson MD [facility] [address] 06/28/21 Office Visit Kaitlynn Christianson MD [facility] [address] 02/08/21 Office Visit Kaitlynn Christianson MD [facility] [address] Showing recent visits within past [...] [facility] Oncology Services [address] [place] [address] Dami Santamaria MD 0 [place] [address] Discharge Disposition: Discharged to home or Selfcare 02/19/2025 9:30 AM CDT Clinical Support [facility] Oncology Services [address] [place] [address] Dami Santamaria MD 0 [place] [address] Discharge Disposition: Discharged to home or Selfcare 07/02/2025 2:30 PM FINANCIAL ADVISOR TRAINEE Office Visit [facility] - Family Medicine [facility] [address] [place] [address] Kay Cabrales, [facility] [address] [place] [address] documented as of this encounter Visit Diagnoses Diagnosis Fibromyalgia Mylagia and myositis, unspecified Acquired hypothyroidism Unspecified hypothyroidism Essential hypertension Unspecified essential hypertension documented in this encounter Additional Health Concerns Assessment Noted Time PHQ-9 Depression Total Score: 0 04/03/20 19 10:00 AM FINANCIAL ADVISOR TRAINEE documented as of this encounter Care Teams Inclusion Special Educator Relationship Specialty Start Date End Date Kaitlynn Christianson MD PCP - General Family Medicine 03/07/15 05/09/22 Ana Theodore MD [address] [id number] PCP - General Family Medicine 05/10/22 08/05/23 Kay Cabrales PAC [address] [place] [address] PCP - General Physician Brim Pouncer Machine Operator 08/06/23 Dami Santamaria MD Consulting Physician Hematology 08/21/16 Erik Pathak MD Consulting Physician Radiation Oncology 09/22/16 Christiano Gregory MD [address] [address] Consulting Physician Endocrinology 01/10/22 Eyad Regalado MD [address] [address] Consulting Physician Colon and Rectal Surgery 04/02/24 documented as of this encounter
--- OUTSIDE RECORDS SUMMARY | 2025-01-16 14:26 | XMS_ITS | Encounter Summary ---
Author Organization [facility] Address [address] [place] [address] Phone Care Team Providers Care Piece Jobber Name Role Phone Kaitlynn Christianson MD Primary Care Provider Dami Santamaria MD Unavailable [phone] Erik Pathak MD Unavailable [phone] Christiano Gregory MD Unavailable Ana Theodore MD Primary Care Provider Kay Cabrales Primary Care Provider + Eyad Regalado MD Unavailable Reason for Visit * Reason Comments Medication Refill Encounter Details Date Type Department Care Team (Late st Contact Info) Description 01/26/2021 Refill [facility] Medical Oncology [address] [place] [address] Dami Santamaria MD [address] [place] [address] Medication Refill Social History Tobacco [...] 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 Oncology Services [address] [place] [address] Daim Santamaria MD [address] [place] [address] Discharge Disposition: Discharged to home or Selfcare 02/19/2025 9:30 AM CDT Clinical Support [facility] Oncology Services [address] [place] [address] Dami Santamaria MD [address] [place] [address] Discharge Disposition: Discharged to home or Selfcare 07/02/2025 2:30 PM FULL SERVICE VENDING DRIVER Office Visit [facility] - Family Medicine - [place] [address] [place] [address] Kay Cabrales, [facility] [address] [place] [address] documented as of this encounter Visit Diagnoses Diagnosis Malignant neoplasm of lower-outer quadrant of right female breast (HCC) Malignant neoplasm of lower-outer quadrant of female breast documented in this encounter Additional Health Concerns Assessment Noted Time PHQ-9 Depression Total Score: 0 04/03/20 19 10:00 AM FULL SERVICE VENDING DRIVER documented as of this encounter Care Teams Piece Jobber Relationship Specialty Start Date End Date Kaitlynn Christianson MD PCP - General Family Medicine 03/07/15 05/09/22 Ana Theodore MD [address] [phone] PCP - General Family Medicine 05/10/22 08/05/23 Kay Cabrales PAC [address] [place] [address] PCP - General Physician Flat Sheet Maker 08/06/23 Dami Santamaria MD Consulting Physician Hematology 08/21/16 Erik Pathak MD Consulting Physician Radiation Oncology 09/22/16 Christiano Gregory MD [address] [address] Consulting Physician Endocrinology 01/10/22 Eyad Regalado MD [address] [address] Consulting Physician Colon and Rectal Surgery 04/02/24 documented as of this encounter
--- OUTSIDE RECORDS SUMMARY | 2025-01-16 14:26 | XMS_ITS | Clinical Summary ---
Author Organization [facility] [address] Address [address] [place] [address] Phone Care Team Providers Care Fiscal Clerk Name Role Phone Tess Phillips MD Unavailable [phone] Kaitlynn Christianson MD Primary Care Provider [phone] Allergies Active Allergy Reactions Criticality Noted Date [...] on file Legal Sex Female 2:01 AM MANAGER BATTERY Gender Identity Not on file Sexual Orientation [...] Plan of Treatment Not on file Insurance [facility] [employer] MEDICARE MEDICARE [employer] Care Teams Fiscal Clerk Relationship Specialty Start Date End Date Kaitlynn Christianson MD [address] [place] [address] PCP - General Family Practice 12/27/20 Tess Phillips MD [address] [place] [address] Obstetrics and Gynecology 11/17/16
--- OUTSIDE RECORDS SUMMARY | 2025-01-16 14:26 | XMS_ITS | Encounter Summary ---
Author Organization [facility] Address [address] [place] [address] Phone Care Team Providers Care Online Banking Specialist Name Role Phone Dami Santamaria MD Unavailable [phone] Erik Pathak MD Unavailable [phone] Christiano Gregory MD Unavailable Kay Cabrales Primary Care Provider + Eyad Regalado MD Unavailable Reason for Visit * Reason Comments Medication Refill Encounter Details Date Type Department Care Team (Late st Contact Info) Description 10/05/2023 Refill [facility] - Primary Care - [address] [place] [address] [place] [address] [place] [address] Medication Refill Social History Tobacco Use Types Packs/Day Years Used Date Smoking Tobacco: Never Smokeless Tobacco: Never Alcohol Use Standard Drinks/Week Comments Yes 0 (1 standard drink = 0.6 oz pur e alcohol) Occasionally. [facility] Utilities Answer Date Recorded In the past 12 months has [employer] electric, gas, oil, or water company threatened [...] often do you attend chur ch or temple services? More than 4 times per year 08/07/2023 Do you belong to any clubs o r organizations such as congregation groups, unions, fraternal or athletic groups, or [...] Score - Questions 1-9 0 07/20 [facility] - Occupational Stress Questionnaire Answer Date [...] in a fdc (including now)? 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 Showing future appointments within next 90 days and meeting all other requirements documented in this encounter Plan of Treatment Upcoming Encounters Date Type Department Care Team (Late st Contact Info) Description 02/19/2025 9:20 AM CDT Office Visit [facility] Oncology Services [address] [place] [address] Dami Santamaria MD [address] [place] [address] Discharge Disposition: Discharged to home or Selfcare 02/19/2025 9:30 AM CDT Clinical Support [facility] Oncology Services [address] [place] [phone] Dami Santamaria MD [address] [place] [address] Discharge Disposition: Discharged to home or Selfcare 07/02/2025 2:30 PM ASSEMBLING INSPECTOR Office Visit [facility] Medical [facility] [address] [place] [address] Kay Cabrales PAC [address] [place] [address] documented as of this encounter Visit Diagnoses Diagnosis Fibromyalgia Mylagia and myositis, unspecified Acquired hypothyroidism Unspecified hypothyroidism Essential hypertension Unspecified essential hypertension documented in this encounter Additional Health Concerns Assessment Noted Time PHQ-9 Depression Total Score: 0 08/09/19 24 9:04 AM CDT documented as of this encounter Care Teams Online Banking Specialist Relationship Specialty Start Date End Date Kay Cabrales PAC [address] [place] [address] PCP - General Physician Business Objects Consultant 08/06/23 Dami Santamaria MD Consulting Physician Hematology 08/21/16 Erik Pathak MD Consulting Physician Radiation Oncology 09/22/16 Christiano Gregory MD [address] [address] Consulting Physician Endocrinology 01/10/22 Eyad Regalado MD [address] [place] [address] Consulting Physician Colon and Rectal Surgery 04/02/24 documented as of this encounter
--- OUTSIDE RECORDS SUMMARY | 2025-01-16 14:26 | XMS_ITS | Encounter Summary ---
Author Organization [facility] Address [address] [place] [address] Phone Care Team Providers Care Roof Shingler Name Role Phone Dami Santamaria MD Unavailable [phone] Erik Pathak MD Unavailable [phone] Christiano Gregory MD Unavailable Ana Theodore MD Primary Care Provider Kay Cabrales Primary Care Provider + Eyad Regalado MD Unavailable Reason for Visit * Reason Comments Medication Refill Encounter Details Date Type Department Care Team (Late st Contact Info) Description 01/16/2023 Refill [facility] - Primary Care - [address] [place] [address] Kaitlynn Christianson MD [address] [place] [address] Medication Refill Social History Tobacco [...] Description 02/19/2025 9:20 AM CDT Office Visit [facility] Oncology Services [address] [place] [address] Dami Santamaria MD [address] [place] [address] Discharge Disposition: Discharged to home or Selfcare 02/19/2025 9:30 AM CDT Clinical Support [facility] Oncology Services [address] [place] [address] Dami Santamaria MD [address] [place] [address] Discharge Disposition: Discharged to home or Selfcare 07/02/2025 2:30 PM SALES ROUTE DRIVER Office Visit [facility] Group Family [facility] [address] [place] [address] Kay Cabrales, [place] [address] [place] [address] documented as of this encounter Visit Diagnoses Diagnosis Fibromyalgia Mylagia and myositis, unspecified documented in this encounter Additional Health Concerns Assessment Noted Time PHQ-9 Depression Total Score: 0 05/10/20 22 1:00 PM SALES ROUTE DRIVER documented as of this encounter Care Teams Roof Shingler Relationship Specialty Start Date End Date Ana Theodore MD [address] [address] PCP - General Family Medicine 05/10/22 08/05/23 Kay Cabrales PAC [address] [place] [address] PCP - General Physician Die Casting Machine Operator 08/06/23 Dami Santamaria MD Consulting Physician Hematology 08/21/16 Erik Pathak MD Consulting Physician Radiation Oncology 09/22/16 Christiano Gregory MD [address] [address] Consulting Physician Endocrinology 01/10/22 Eyad Regalado MD [address] [address] Consulting Physician Colon and Rectal Surgery 04/02/24 documented as of this encounter
--- OUTSIDE RECORDS SUMMARY | 2025-01-16 14:26 | XMS_ITS | Encounter Summary ---
Author Organization [facility] Address [address] [place] [address] Phone Care Team Providers Care Medical Assistant Name Role Phone Kaitlynn Christianson MD Primary Care Provider [phone] Dami Santamaria MD Unavailable [phone] Erik Pathak MD Unavailable [phone] Christiano Gregory MD Unavailable Ana Theodore MD Primary Care Provider Kay Cabrales Primary Care Provider + Eyad Regalado MD Unavailable Reason for Visit * Reason Comments Medication Refill Encounter Details Date Type Department Care Team (Late st Contact Info) Description 04/18/2021 [facility] [address] [place] [address] Kaitlynn Christianson MD [address] [place] [address] Medication Refill Social History Tobacco [...] 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 [...] Acute pain of left knee [facility] Kaitlynn Christianson MD 4 months ago Essential hypertension [facility] Kaitlynn Christianson MD 10 months ago Essential hypertension [facility] Kaitlynn Christianson MD 1 year ago Essential hypertension [facility] Kaitlynn Everett MD 2 years ago Essential hypertension [facility] Kaitlynn Christianson MD Upcoming Appointments Future Appointments In 1 month [facility] In 2 months Dami Santamaria MD [facility] Oncology Services, [facility] In 2 months [facility] CC [facility] CH[facility] In 2 months Kaitlynn Christianson MD [facility] In 8 Erik Fernandez MD [facility] BUFFING WHEEL RAKER - Recent and Past Visits Recent Visits Date Type Provider Dept 02/08/21 Office Visit Kaitlynn Christianson MD [facility] 12/17/20 Office Visit Kaitlynn Christianson MD [facility] 06/17/20 Telemedicine Kaitlynn Christianson MD [facility] Showing recent visits within past 460 days with a meds authorizing provider and meeting all other requirements Future Appointments Date Type Provider Dept 06/24/21 Appointment Kaitlynn Christianson MD [facility] Showing future appointments within next [...] Dept 02/08/21 Office Visit Kaitlynn Christianson MD [facility] Narrative [facility] 12/17/20 Office Visit Kaitlynn Christianson MD [facility] 06/17/20 Telemedicine Kaitlynn Christianson MD [facility] Showing recent visits within past 365 days and meeting all other requirements Future Appointments Date Type Provider Dept 06/15/21 Appointment David Escamilla [facility] 06/24/21 Appointment Kaitlynn Christianson MD [facility] Showing future appointments within next [...] Dept 02/08/21 Office Visit Kaitlynn Christianson MD [facility] N[facility] 12/17/20 Office Visit Kaitlynn Christianson MD [facility] 06/17/20 Telemedicine Kaitlynn Christianson MD [facility] Showing recent visits within past 365 days and meeting all other requirements Future Appointments Date Type Provider Dept 06/15/21 Appointment Lab, [place] [facility] 06/24/21 Appointment Kaitlynn Christianson MD [facility] Showing future appointments within next [...] Dept 02/08/21 Office Visit Kaitlynn Christianson MD [facility] N[facility] 12/17/20 Office Visit Kaitlynn Christianson MD [facility] 06/17/20 Telemedicine Kaitlynn Christianson MD [facility] Narrative [facility] Showing recent visits within past 365 days and meeting all other requirements Future Appointments Date Type Provider Dept 06/15/21 Appointment Andi David [facility] [address] 06/24/21 Appointment Kaitlynn Christianson MD [facility] Showing future appointments within next 90 days and meeting all other requirements Passed - Normal TSH in past 12 months TSH Date Value Ref Range Status 12/10/2020 1.520 0.270 - 4.200 mIU/L Final AIGN ASSISTANT documented in this encounter Plan of Treatment Upcoming Encounters Date Type Department Care Team (Late st Contact Info) Description 02/19/2025 9:20 AM CDT Office Visit [facility] Oncology Services [address] [place] [address] Dami Santamaria MD [address] [place] [address] Discharge Disposition: Discharged to home or Selfcare 02/19/2025 9:30 AM CDT Clinical Support [facility] Oncology Services [address] [place] [address] Dami Santamaria MD [address] [place] [address] Discharge Disposition: Discharged to home or Selfcare 07/02/2025 2:30 PM CAMPAIGN ASSISTANT Office Visit [facility] Medical Group - Family Medicine [facility] [address] [place] [address] Kay Cabrales, [place] [address] [place] [address] documented as of this encounter Visit Diagnoses Diagnosis Fibromyalgia Mylagia and myositis, unspecified Essential hypertension Unspecified essential hypertension Acquired hypothyroidism Unspecified hypothyroidism documented in this encounter Additional Health Concerns Assessment Noted Time PHQ-9 Depression Total Score: 0 04/03/20 19 10:00 AM CAMPAIGN ASSISTANT documented as of this encounter Care Teams Medical Assistant Relationship Specialty Start Date End Date Kaitlynn Christianson MD PCP - General Family Medicine 03/07/15 05/09/22 Ana Theodore MD [address] [address] PCP - General Family Medicine 05/10/22 08/05/23 Kay Cabrales PAC [address] [place] [address] PCP - General Physician Retail Assistant 08/06/23 Dami Santamaria MD Consulting Physician Hematology 08/21/16 Erik Pathak MD Consulting Physician Radiation Oncology 09/22/16 Christiano Gregory MD [address] [id number] Consulting Physician Endocrinology 01/10/22 Eyad Regalado MD [address] [address] Consulting Physician Colon and Rectal Surgery 04/02/24 documented as of this encounter
--- OUTSIDE RECORDS SUMMARY | 2025-01-16 14:26 | XMS_ITS | Encounter Summary ---
Author Organization [facility] Address [address] [place] [address] Phone Care Team Providers Care Resident Care Aide Name Role Phone Dami Santamaria MD Unavailable [phone] Erik Pathak MD Unavailable [phone] Christiano Gregory MD Unavailable Ana Theodore MD Primary Care Provider Kay Cabrales Primary Care Provider + Eyad Regalado MD Unavailable Reason for Visit * Reason Comments Medication Refill Encounter Details Date Type Department Care Team (Late st Contact Info) Description 10/04/2022 Refill [facility] - Primary [facility] - [place] [address] [place] [address] [place] [address] [place] [address] Medication Refill Social History Tobacco [...] 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 [...] Isaias 12/26/21 Office Visit Kaitlynn Christianson MD [facility] Showing recent visits within past 365 [...] [place] 12/26/21 Office Visit Kaitlynn Christianson MD [facility] Showing recent visits within past 365 [...] [place] 12/26/21 Office Visit Kaitlynn Christianson MD [facility] Showing recent visits within past 365 [...] [place] 12/26/21 Office Visit Kaitlynn Christianson MD [facility] Showing recent visits within past 365 [...] [facility] [address] [place] [address] Dami Santamaria MD [address] [place] [address] Discharge Disposition: Discharged to home or Selfcare 02/19/2025 9:30 AM CDT Clinical Support [facility] [place] [facility] [address] [place] [address] Dami Santamaria MD [address] [place] [address] Discharge Disposition: Discharged to home or Selfcare 07/02/2025 2:30 PM [employer] Office Visit [facility] - Family [facility] [place] [address] [place] [address] Kay Cabrales, PAC [address] [place] [address] documented as of this encounter Visit Diagnoses Diagnosis Acquired hypothyroidism Unspecified hypothyroidism Fibromyalgia Mylagia and myositis, unspecified Essential hypertension Unspecified essential hypertension documented in this encounter Additional Health Concerns Assessment Noted Time PHQ-9 Depression Total Score: 0 05/10/20 1:00 PM [employer] documented as of this encounter Care Teams Resident Care Aide Relationship Specialty Start Date End Date Aan Theodore MD [address] [address] PCP - General Family Medicine 05/10/22 08/05/23 Kay Cabrales, PAC [address] [place] [address] PCP - General Physician [employer] 08/06/23 Dami Santamaria MD Consulting Physician Hematology 08/21/16 Erik Pathak MD Consulting Physician Radiation Oncology 09/22/16 Christiano Gregory MD [address] [address] Consulting Physician Endocrinology 01/10/22 Eyad Regalado MD [address] [address] Consulting Physician Colon and Rectal Surgery 04/02/24 documented as of this encounter
== END 2025-01-16 14:16 | disposition home or self-care (01) ==
PROVIDERS: PCP Physician Assistant; Visit Provider Urology
DX: N20.0 Calculus of kidney (principal)
CPT/HCPCS: 74018